=== PATIENT | female | born 1950 | race Caucasian/White ===

== ENCOUNTER 2024-07-29 07:54 | Outpatient (CLI) | payer MEDICARE, OTHER, SELFPAY ==
--- NOTE | ~2024-07-29 | MM_ITS ---
EXAMINATION: MM screening leon BI w royal HISTORY: Screening mammogram TECHNIQUE: Craniocaudal and mediolateral oblique 3-D tomosynthesis images were obtained and synthetic 2-D images were generated. CAD analysis was submitted and interpreted. COMPARISON: No prior mammogram is available for comparison at this institution. BREAST PARENCHYMAL COMPOSITION:Dense: The breasts are heterogeneously dense, which may obscure small masses. FINDINGS: Asymmetry noted in the upper right subareolar region. No definite parenchymal abnormality l eft breast. Bilateral benign calcifications are present. IMPRESSION: Subareolar right breast asymmetry. Spot compression and true lateral views, and possibly ultrasound, recommended for further evaluation. BI-RADS Category 0: Incomplete: Needs additional imaging evaluation. Reviewed, dictated and finalized at location .
--- OUTSIDE RECORDS SUMMARY | 2024-07-29 08:12 | XMS_ITS | CONTINUITY OF CARE DOCUMENT ---
Author Name monroe childress Address Unknown Organization [facility] Address [address] [address] [place] [address] Phone [phone] Care Team Providers Care Clergy Member Name Role Phone Jerome ELKINS, Karen Unavailable ELY ERICKSON MD Unavailable ELY ERICKSON MD Unavailable PROBLEMS Condition Status Date Provider Notes Chest pain active Massiel Morel INSURANCE PROVIDERS Payer name Policy type / Coverage type [place] libertarian ID NEETA SANTACRUZ [id number] [place] [id number] HISTORY OF PROCEDURES Procedure Date Procedure Name Provider Procedure Notes S tatus Cardiolite, 2 units Karen Cano MD completed SPECT Images Trisha Stanford MD com pleted Stress EKG Long Ventura MD completed
--- OUTSIDE RECORDS SUMMARY | 2024-07-29 08:12 | XMS_ITS | Referral Summary ---
Author Organization [facility] Virtual Care Address [facility] [place] [address] Phone Care Team Providers Care Rubbish Collector Name Role Phone Sidney Westfall MD Primary Care Provider Encounters Date Type Department Care Team Description 07/20/2024 Telephone [facility] [address] [phone] Sidney Westfall MD home health orders 07/13/2024 7:39 AM OFFICE COORDINATOR - 07/13/2024 11:59 PM OFFICE COORDINATOR Hospital Encounter [facility] Medical [facility] [address] [place] [phone] Discharge Disposition: Discharge to home or self care 07/13/2024 10:15 AM OFFICE COORDINATOR Office Visit [facility]opedics and Sports Medicine [address] [place] [phone] Demarco Rainey NP Right knee pain, unspecified chronicity (Primary Dx); Closed nondisplaced longitudinal fracture of right patella, initial encounter 07/12/2024 Telephone [facility] [phone] Sidney Westfall MD Scheduling Testing/Treatment 06/14/2024 11:17 AM OFFICE COORDINATOR - 06/17/2024 4:37 PM OFFICE COORDINATOR Hospital Encounter [facility] [address] [place] [phone] Arash Zazueta Jr., MD Okonkwo, Kasiemobi Bernice, MD Singh, Supriya, MD Closed sleeve fracture of right patella, initial encounter (Primary Dx) Discharge Disposition: Discharge to [facility] 05/13/2024 12:55 PM OFFICE COORDINATOR Lab [facility] ([facility]) [address] [place] [phone] Type 2 diabetes mellitus without complication, without long-term current use of insulin (HCC); Mixed hyperlipidemia; Essential hypertension; Parkinson'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, with fluctuating manifestations (HCC); Anemia, unspecified type 05/13/2024 Telephone [facility] Scheduling [facility] [place] [address] Felipe Rivas MD Scheduling Appointments 05/13/2024 11:00 AM OFFICE COORDINATOR Office Visit [facility] [address] [facility] [address] [place] [phone] Sidney Westfall MD Type 2 diabetes mellitus without complication, without long-term current use of insulin (HCC) (Primary Dx); Mixed hyperlipidemia; Essential hypertension; Parkinson'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, with fluctuating manifestations (HCC); Anemia, unspecified type from Last 3 Months Allergies No known active allergies Medications albuterol HFA (Proventil HFA) 90 mcg/actuation inhaler Inhale 2 puffs every 4 (four) hours as needed for wheezing or shortness of breath 3 each 1 3 Active pen needle, diabetic, safety 31 gauge x 08/01 needleIndications: Type 2 diabetes mellitus without complication, unspecified whether [facility] insulin use (HCC) 45 Units daily inject 45 units daily 100 each 1 4 Active levothyroxine (SYNTHROID) 50 mcg tablet Take 1 tablet (50 mcg total) by mouth daily 90 tablet 1 4 Active ALPRAZolam (XANAX) 0.5 mg tablet Take 1 tablet (0.5 mg total) by mouth 2 (two) times a day as needed for anxiety for anxiety 60 tablet 2 4 Active gemfibroziL (LOPID) 600 mg tabletIndications: Hyperlipidemia, unspecified hyperlipidemia type Take 1 tablet (600 mg total) by mouth 2 (two) times a day 180 tablet 1 4 Active traZODone (DESYREL) 50 mg tablet Take 1 tablet (50 mg total) by mouth nightly as needed for sleep for sleep 90 tablet 1 4 Active carbidopa-levodopa (SINEMET) 25-100 mg per tablet Take 1 tablet by mouth 3 (three) times a day 270 tablet 1 4 08/19/19 25 Active Contour Next Test Strips strip Test glucose bid 200 strip 1 4 Active lisinopriL (PRINIVIL,ZESTRIL) 20 mg tabletIndications: Essential hypertension Take 1 tablet (20 mg total) by mouth daily 90 tablet 1 4 Active metFORMIN (GLUCOPHAGE) 1,000 mg tabletIndications: Type 2 diabetes mellitus without complication, without long-term current use of insulin (HCC) TAKE ONE TABLET BY MOUTH TWICE A DAY WITH A MEAL 180 tablet 3 4 Active therapeutic multivitamin (THERA) tablet Take 1 tablet by mouth daily Active Active Problems Problem Noted Date Diagnosed Date Closed sleeve fracture of right patella, initial encounter 06/14/2024 Parkinson'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, with fluctuating manifestations 11/06/2023 Anemia 11/04/2022 Vasovagal syncope 04/25/2022 Hypothyroidism 04/10/2021 Assessment & Plan (02/18/2024 1:11 PM CDT): Recent labs normal Tremor 01/08/2021 Type 2 diabetes mellitus wit hout complication, without long-term current use of insulin 07/10/2020 Assessment & Plan (02/18/2024 1:11 PM CDT): On metformin only. A1c 5.5% continue present Rx Assessment & Plan (07/10/2020 10:39 AM OFFICE COORDINATOR): A1c at target. Will continue present Rx. Check BMP and microalbumin Hyperlipidemia 07/10/2020 Assessment & Plan (02/18/2024 1:11 PM CDT): Doing well at this time Assessment & Plan (07/10/2020 10:39 AM OFFICE COORDINATOR): Lipid elevated. Consider ezetemibe in the future. Essential hypertension 07/10/2020 Assessment & Plan (02/18/2024 1:11 PM CDT): BP at target Assessment & Plan (07/10/2020 10:39 AM OFFICE COORDINATOR): Blood pressure at target doing well Anxiety 07/10/2020 Assessment & Plan (07/10/2020 10:39 AM OFFICE COORDINATOR): Will increase alprazolam 2.5 b.i.d. Orthostatic hypotension Immunizations Immunization Administration Dates Next Due COVID-19 mRNA ([employer]) 0.3 m L (30 mcg) vaccine (12 years and up) 03/08/2024 Influenza, Quad, Adjuvantate d, Intramuscular 01/03/2023 Influenza, Quadrivalent, Hig h Dose, Preservative Free, Intrr 04/01/2022,03/05/2021,03/21/2020 Influenza, Quadrivalent, Spl it, Preservative Free, Intramuscular 04/19/2015 Influenza, Trivalent, High D ose, Split, Preservative Free, Intramuscular 03/08/2024,03/01/2018,04/28/2017 Influenza, Trivalent, IM (MDV) 04/07/2014 Influenza, Trivalent, Preser vative Free, Intramuscular 04/01/2013 Moderna SARS-CoV-2 Monovalen t Vaccination (12+ YRS) 04/09/2021 Pneumococcal Conjugate PCV 13 03/01/2018 Pneumococcal Conjugate Pcv20 09/18/2022 Pneumococcal Polysaccharide PPV23 02/08/2023 RSV Vaccine, Pref, Recombina nt, Subunit, Adjuvanted, PF, IM (Arexvy) 03/05/2023 ZOSTER Recombinant 01/03/2023,09/18/2022 Social History Tobacco Use Types Packs/Day Years Used Date Smoking Tobacco: Former Cigarettes Q uit: 1998 Tobacco Cessation:Counseling Given: Not Answered AUDIT-C Answer Date Recorded Q1: How often do you have a drink containing alcohol? Never 07/13/2024 Q2: How many drinks containi ng alcohol do you have on a typical day when you are drinking? Patient does not drink Q3: How often do you have si x or more drinks on one occasion? Never 07/13/2024 PHQ-2 Answer Date Recorded PHQ-2 Total Score (If total score is 3 or more points, staff should administer the PHQ-9) 0 06/14/2024 Personal Safety Answer Date Recorded Have you ever been in or are you currently in a harmful physical or emotional relationship or is someone making you feel afraid or unsafe? Denies 06/14/2024 Comments Unknown Sex and Gender Information Value Date Recorded Sex Assigned at Not on file Legal Sex Female 12:14 AM OFFICE COORDINATOR Gender Identity Female 11/17/2023 1:33 PM CDT Sexual Orientation Straight 11/17/2023 1: 33 PM CDT Last Filed Vital Signs Vital Sign Reading Time Taken Comments Blood Pressure 119/63 07/13/2024 10:38 AM OFFICE COORDINATOR Pulse 99 07/13/2024 10:38 AM OFFICE COORDINATOR Temperature 36.3 C (97.3 F) 06/17/2024 2:55 PM OFFICE COORDINATOR Respiratory Rate 18 06/17/2024 2:55 PM OFFICE COORDINATOR Oxygen Saturation 94% 06/17/2024 2:55 PM OFFICE COORDINATOR Inhaled Oxygen Concentration - - Weight 66.2 kg (146 lb) 07/13/2024 10:38 AM OFFICE COORDINATOR Height 170.2 cm (5' 7 ) 07/13/2024 10:38 AM OFFICE COORDINATOR Body Mass Index 22.87 07/13/2024 10:38 AM OFFICE COORDINATOR Plan of Treatment Not on file Procedures Procedure Name Priority Date/Time Associated Diagnosis Comments XR KNEE RIGHT 3 VIEWS Schedule Routine, Read Routine (OP Routine) 07/13/2024 10:34 AM OFFICE COORDINATOR Right knee pain, unspecified chronicity POCT GLUCOSE DEVICE Routine 06/17/2024 4 :01 PM OFFICE COORDINATOR POCT GLUCOSE DEVICE Routine 06/17/2024 11:33 AM OFFICE COORDINATOR POCT GLUCOSE DEVICE Routine 06/17/2024 7 :32 AM OFFICE COORDINATOR DIFFERENTIAL AUTO Routine 06/17/2024 4:2 2 AM OFFICE COORDINATOR CBC WITH AUTO DIFFERENTIAL Routine 06/17/2024 4:22 AM OFFICE COORDINATOR POCT GLUCOSE DEVICE Routine 06/17/2024 2 :05 AM OFFICE COORDINATOR POCT GLUCOSE DEVICE Routine 06/16/2024 8 :43 PM OFFICE COORDINATOR POCT GLUCOSE DEVICE Routine 06/16/2024 4 :13 PM OFFICE COORDINATOR POCT GLUCOSE DEVICE Routine 06/16/2024 11:08 AM OFFICE COORDINATOR EGFR Timed 06/16/2024 7:59 AM OFFICE COORDINATOR DIFFERENTIAL AUTO Routine 06/16/2024 7:5 9 AM OFFICE COORDINATOR CBC WITH AUTO DIFFERENTIAL Routine 06/16/2024 7:59 AM OFFICE COORDINATOR BASIC METABOLIC PANEL Timed 06/16/2024 7:59 AM OFFICE COORDINATOR POCT GLUCOSE DEVICE Routine 06/16/2024 7 :10 AM OFFICE COORDINATOR POCT GLUCOSE DEVICE Routine 06/16/2024 2 :34 AM OFFICE COORDINATOR POCT GLUCOSE DEVICE Routine 06/15/2024 7 :56 PM OFFICE COORDINATOR POCT GLUCOSE DEVICE Routine 06/15/2024 4 :36 PM OFFICE COORDINATOR POCT GLUCOSE DEVICE Routine 06/15/2024 11:10 AM OFFICE COORDINATOR POCT GLUCOSE DEVICE Routine 06/15/2024 7 :34 AM OFFICE COORDINATOR POCT GLUCOSE DEVICE Routine 06/15/2024 2 :05 AM OFFICE COORDINATOR POCT GLUCOSE DEVICE Routine 06/14/2024 9 :01 PM OFFICE COORDINATOR POCT GLUCOSE DEVICE Routine 06/14/2024 4 :25 PM OFFICE COORDINATOR EGFR STAT 06/14/2024 12:14 PM OFFICE COORDINATOR DIFFERENTIAL AUTO STAT 06/14/2024 12:14 PM OFFICE COORDINATOR COMPREHENSIVE METABOLIC PANEL STAT 06/14/2024 12:14 PM OFFICE COORDINATOR CBC WITH AUTO DIFFERENTIAL STAT 06/14/2024 12:14 PM OFFICE COORDINATOR XR KNEE RIGHT 4 OR MORE VIEWS ED 06/14/2024 11:21 AM OFFICE COORDINATOR EGFR Routine 05/13/2024 11:59 AM OFFICE COORDINATOR Type 2 diabetes mellitus without complication, without long-term current use of insulin (HCC) Mixed hyperlipidemia Essential hypertension Parkinson'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, with fluctuating manifestations (HCC) Anemia, unspecified type DIFFERENTIAL AUTO Routine 05/13/2024 11:59 AM OFFICE COORDINATOR Type 2 diabetes mellitus without complication, without long-term current use of insulin (HCC) Mixed hyperlipidemia Essential hypertension Parkinson'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, with fluctuating manifestations (HCC) Anemia, unspecified type COMPREHENSIVE METABOLIC PANEL Routine 05/13/2024 11:59 AM OFFICE COORDINATOR Type 2 diabetes mellitus without complication, without long-term current use of insulin (HCC) Mixed hyperlipidemia Essential hypertension Parkinson'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, with fluctuating manifestations (HCC) Anemia, unspecified type TSH Routine 05/13/2024 11:59 AM OFFICE COORDINATOR Type 2 diabetes mellitus without complication, without long-term current use of insulin (HCC) Mixed hyperlipidemia Essential hypertension Parkinson'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, with fluctuating manifestations (HCC) Anemia, unspecified type ALBUMIN CREATININE RATIO, URINE Routine 05/13/2024 11:59 AM OFFICE COORDINATOR Type 2 diabetes mellitus without complication, without long-term current use of insulin (HCC) Mixed hyperlipidemia Essential hypertension Parkinson'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, with fluctuating manifestations (HCC) Anemia, unspecified type CBC WITH AUTO DIFFERENTIAL Routine 05/13/2024 11:59 AM OFFICE COORDINATOR Type 2 diabetes mellitus without complication, without long-term current use of insulin (HCC) Mixed hyperlipidemia Essential hypertension Parkinson'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, with fluctuating manifestations (HCC) Anemia, unspecified type POCT HEMOGLOBIN A1C Routine 02/18/2024 12:34 PM CDT Type 2 diabetes mellitus without complication, without long-term current use of insulin (HCC) HEPATITIS C ANTIBODY Routine 11/06/2023 10:16 AM CDT Type 2 diabetes mellitus without complication, unspecified whether intermodal owner operator truck driver insulin use (HCC) Mixed hyperlipidemia Parkinson'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, with fluctuating manifestations (HCC) Anemia, unspecified type Hypothyroidism, unspecified type Essential hypertension Encounter for hepatitis C screening test for low risk patient POCT LIPID PANEL Routine 11/06/2023 9:47 AM CDT Mixed hyperlipidemia COLONOSCOPY Routine 06/09/2019 from Last 3 Months or Most Recently Relevant to Health Maintenance Results * XR Knee Right 3 View (07/13/2024 10:34 AM OFFICE COORDINATOR) Anatomical Region Laterality Modality Lower Extremities, Knee Right Digital Radiography Narrative 07/13/2024 11:40 AM OFFICE COORDINATOR 4 view of the knee show mild tricompartmental osteoarthritis. No dislocations noted. Minimally displaced lateral facet fracture is again viewed, no worsening displacement. Interval callus noted us Demarco Rainey TRACTOR TRAILER TECHNICIAN IMG XR PROCEDURES Final Result * POCT glucose (06/17/2024 4:01 PM OFFICE COORDINATOR) Glucose, POC 113 70 - 199 mg/dL Blood 06/17/2024 4:01 PM OFFICE COORDINATOR 06/17/2024 4:01 PM OFFICE COORDINATOR us Dillon Romano MD LAB POCT ORDERABLES - DEVICE Final Result [facility] ([place]) 1 [facility] [place] [address] * POCT glucose (06/17/2024 11:33 AM OFFICE COORDINATOR) Glucose, POC 177 70 - 199 mg/dL Blood 06/17/2024 11:3 3 AM OFFICE COORDINATOR 06/17/2024 11:33 AM OFFICE COORDINATOR Dillon Romano MD LAB POCT ORDERABLES - DEVICE Final Result SHAKE[facility] MERRITT ([place]) 1 [place] [address] * POCT glucose (06/17/2024 7:32 AM OFFICE COORDINATOR) Glucose, POC 177 70 - 199 mg/dL Blood 06/17/2024 7:32 AM OFFICE COORDINATOR 06/17/2024 7:32 AM OFFICE COORDINATOR Dillon Romano MD LAB POCT ORDERABLES - DEVICE Final Result Performing Organization Address City/[facility] Co de Phone Number SHAKE[facility] MERRITT ([place]) 1 [facility] [place] [address] * Differential, auto (06/17/2024 4:22 AM OFFICE COORDINATOR) Neutrophil abs 3.0 1.5 - 6.5 K/cumm Imm gran abs 0.0 0.0 - 0.1 K/cumm [facility] ([place]) Lymphocyte abs 1.5 0.8 - 3.3 K/cumm [facility] ([place]) Monocyte abs 0.6 0.2 - 0.8 K/cumm [facility] ([place]) Eosinophil abs 0.1 0.0 - 0.5 K/cumm [facility] ([place]) Basophil abs 0.0 0.0 - 0.1 K/cumm [facility] ([place]) Neutrophil pct 57.3 % [facility] ([place]) Comment: Interpretive Data Percent cell count reference ranges are not reported, since discordance with absolute values may lead to misinterpretation of CBC data. Current Interpretive Data was last revised on 2017. Imm gran pct 0.2 % [facility] ([place]) Comment: Interpretive Data Percent cell count reference ranges are not reported, since discordance with absolute values may lead to misinterpretation of CBC data. Current Interpretive Data was last revised on 2017. Lymphocyte pct 28.8 % [facility] ([place]) Comment: Interpretive Data Percent cell count reference ranges are not reported, since discordance with absolute values may lead to misinterpretation of CBC data. Current Interpretive Data was last revised on 2017. Monocyte pct 10.6 % [facility] ([place]) Comment: Interpretive Data Percent cell count reference ranges are not reported, since discordance with absolute values may lead to misinterpretation of CBC data. Current Interpretive Data was last revised on 2017. Eosinophil pct 2.5 % [facility] ([place]) Comment: Interpretive Data Percent cell count reference ranges are not reported, since discordance with absolute values may lead to misinterpretation of CBC data. Current Interpretive Data was last revised on 2017. Basophil pct 0.6 % [facility] ([place]) Comment: Interpretive Data Percent cell count reference ranges are not reported, since discordance with absolute values may lead to misinterpretation of CBC data. Current Interpretive Data was last revised on 2017. Blood 06/17/2024 4:22 AM OFFICE COORDINATOR 06/17/2024 4:38 AM OFFICE COORDINATOR us rAash Zazueta Jr., MD LAB BLOOD ORDERABLE S Final Result [facility]ERRITT ([place]) 1 [facility] Department [place] [address] * (ABNORMAL) CBC with auto differential (06/17/2024 4:22 AM OFFICE COORDINATOR) WBC 5.3 3.8 - 9.9 K/cumm Hgb 9.8(L) 11.9 - 15.5 g/dL [facility] ([place]) Hct 30.2(L) 35.6 - 45.5 % [facility] ([place]) Plt 271 150 - 400 K/cumm [facility] ([place]) MPV 9.0(L) 9.1 - 12.3 fL [facility] ([place]) RBC 3.42(L) 3.90 - 5.20 M/cumm [facility] ([place]) MCV 88.3 81.3 - 96.4 fL [facility] ([place]) MCH 28.7 27.1 - 33.3 pg [facility] ([place]) MCHC 32.5 32.3 - 35.7 g/dL [facility] ([place]) RDW CV 13.3 11.1 - 14.9 % [facility] ([place]) RDW SD 43.1 35.7 - 48.1 fL [facility] ([place]) NRBC abs 0.00 0.00 - 0.01 K/cumm [facility] ([place]) Blood 06/17/2024 4:22 AM OFFICE COORDINATOR 06/17/2024 4:38 AM OFFICE COORDINATOR us Arash Zazueta Jr., MD LAB BLOOD ORDERABLE S Final Result SHA[facility] MERRITT ([place]) 1 [facility] [employer] [place] [employer] [place] [address] * POCT glucose (06/17/2024 2:05 AM OFFICE COORDINATOR) Glucose, POC 179 70 - 199 mg/dL Blood 06/17/2024 2:05 AM OFFICE COORDINATOR 06/17/2024 2:05 AM OFFICE COORDINATOR us Dillon Romano MD LAB POCT ORDERABLES - DEVICE Final Result SHAKE[facility] MERRITT ([place]) 1 [facility] [employer] [place] [employer] [place] [address] * POCT glucose (06/16/2024 8:43 PM OFFICE COORDINATOR) Glucose, POC 191 70 - 199 mg/dL Blood 06/16/2024 8:43 PM OFFICE COORDINATOR 06/16/2024 8:43 PM OFFICE COORDINATOR us Dillon Romano MD LAB POCT ORDERABLES - DEVICE Final Result Performing Organization Address [facility] Co de Phone Number SHAKEEL MERRITT ([place]) 1 [facility] [place] [address] * POCT glucose (06/16/2024 4:13 PM OFFICE COORDINATOR) Glucose, POC 154 70 - 199 mg/dL Blood 06/16/2024 4:13 PM OFFICE COORDINATOR 06/16/2024 4:13 PM OFFICE COORDINATOR Dillon Romano MD LAB POCT ORDERABLES - DEVICE Final Result Performing Organization Address [facility] de Phone Number [facility] ([place]) 1 [facility] [place] [address] * POCT glucose (06/16/2024 11:08 AM OFFICE COORDINATOR) [facility] Signature Glucose, POC 194 70 - 199 mg/dL Blood 06/16/2024 11:0 8 AM OFFICE COORDINATOR 06/16/2024 11:08 AM OFFICE COORDINATOR Dillon Romano MD LAB POCT ORDERABLES - DEVICE Final Result Performing Organization Address [facility] de Phone Number [facility] ([place]) 1 [facility] [place] [address] * (ABNORMAL) eGFR (06/16/2024 7:59 AM OFFICE COORDINATOR) Pathologist [facility] eGFR 57(L) >=60 mL/min/1. 73 m2 Comment: Interpretive Data Reference Interval Normal >/= 90 mL/min/1.73m2 Mildly decreased* 60 - 89 mL/min/1.73m2 Mildly to moderately decreased 45 - 59 mL/min/1.73m2 Moderately to severely decreased 30 - 44 mL/min/1.73m2 Severely decreased 15 - 29 mL/min/1.73m2 Kidney Failure < 15 mL/min/1.73m2 *Relative to young adult level Estimated glomerular filtration rate is determined by the 2020 CKD-EPI equation recommended by the National Kidney Foundation (A Unifying Approach to GFR Estimation: Recommendations of the NKF-ASK Task Force on Reassessing the Inclusion of Race in Diagnosing Kidney Disease, JASN 2020). The CKD-EPI equation should not be used for patients with unstable renal function and has not been validated in children and those over 70. Current interpretive data was last reviewed 2021. Blood 06/16/2024 7:59 AM OFFICE COORDINATOR 06/16/2024 8:45 AM OFFICE COORDINATOR us Arash Zazueta Jr., MD LAB BLOOD ORDERABLE S Final Result [facility] ([place]) 1 [facility] Department [place] [address] * Differential, auto (06/16/2024 7:59 AM OFFICE COORDINATOR) Neutrophil abs 3.4 1.5 - 6.5 K/cumm Imm gran abs 0.0 0.0 - 0.1 K/cumm [facility] ([place]) Lymphocyte abs 1.3 0.8 - 3.3 K/cumm [facility] ([place]) Monocyte abs 0.5 0.2 - 0.8 K/cumm [facility] ([place]) Eosinophil abs 0.1 0.0 - 0.5 K/cumm [facility] ([place]) Basophil abs 0.0 0.0 - 0.1 K/cumm [facility] ([place]) Neutrophil pct 63.4 % [facility] ([place]) Comment: Interpretive Data Percent cell count reference ranges are not reported, since discordance with absolute values may lead to misinterpretation of CBC data. Current Interpretive Data was last revised on 2017. Imm gran pct 0.6 % [facility] ([place]) Comment: Interpretive Data Percent cell count reference ranges are not reported, since discordance with absolute values may lead to misinterpretation of CBC data. Current Interpretive Data was last revised on 2017. Lymphocyte pct 24.7 % [facility] ([place]) Comment: Interpretive Data Percent cell count reference ranges are not reported, since discordance with absolute values may lead to misinterpretation of CBC data. Current Interpretive Data was last revised on 2017. Monocyte pct 9.0 % [facility] ([place]) Comment: Interpretive Data Percent cell count reference ranges are not reported, since discordance with absolute values may lead to misinterpretation of CBC data. Current Interpretive Data was last revised on 2017. Eosinophil pct 1.9 % [facility] ([place]) Comment: Interpretive Data Percent cell count reference ranges are not reported, since discordance with absolute values may lead to misinterpretation of CBC data. Current Interpretive Data was last revised on 2017. Basophil pct 0.4 % [facility] ([place]) Comment: Interpretive Data Percent cell count reference ranges are not reported, since discordance with absolute values may lead to misinterpretation of CBC data. Current Interpretive Data was last revised on 2017. Blood 06/16/2024 7:59 AM OFFICE COORDINATOR 06/16/2024 8:45 AM OFFICE COORDINATOR us Arash Zazueta Jr., MD LAB BLOOD ORDERABLE S Final Result [facility] ([place]) 1 [facility] Department [place] [address] * (ABNORMAL) CBC with auto differential (06/16/2024 7:59 AM OFFICE COORDINATOR) WBC 5.3 3.8 - 9.9 K/cumm Hgb 10.4(L) 11.9 - 15.5 g/dL [facility] ([place]) Hct 32.4(L) 35.6 - 45.5 % [facility] ([place]) Plt 285 150 - 400 K/cumm [facility] ([place]) MPV 9.1 9.1 - 12.3 fL [facility] ([place]) RBC 3.65(L) 3.90 - 5.20 M/cumm [facility] ([place]) MCV 88.8 81.3 - 96.4 fL [facility] ([place]) MCH 28.5 27.1 - 33.3 pg [facility] MCHC 32.1(L) 32.3 - 35.7 g/dL [facility] RDW CV 13.2 11.1 - 14.9 % [facility] ([place]) RDW SD 43.4 35.7 - 48.1 fL [facility] ([place]) NRBC abs 0.00 0.00 - 0.01 K/cumm [facility] ([place]) Blood 06/16/2024 7:59 AM OFFICE COORDINATOR 06/16/2024 8:45 AM OFFICE COORDINATOR us Arash Zazueta Jr., MD LAB BLOOD ORDERABLE S Final Result [facility] ([place]) 1 [facility] Department [place] [address] * (ABNORMAL) Basic metabolic panel (06/16/2024 7:59 AM OFFICE COORDINATOR) Sodium 137 135 - 145 mmol/L Potassium, pl 4.4 3.3 - 4.9 mmol/L [facility] ([place]) Chloride 102 97 - 110 mmol/L [facility] CO2 22 22 - 32 mmol/L [facility] ([place]) Anion gap 14 2 - 15 mmol/L [facility] ([place]) BUN 22 6 - 25 mg/dL [facility] ([place]) Creatinine 1.03 0.60 - 1.10 mg/dL [facility] Glucose 201(H) 70 - 199 mg/dL [facility] [facility] Comment: Interpretive Data Fasting glucose >/= 126 mg/dl is diagnostic for diabetes. Fasting is defined as no caloric intake for at least 8 hours. Fasting glucose between 100 mg/dl to 125 mg/dl is diagnostic of prediabetes. In a patient with classic symptoms of hyperglycemia or hyperglycemic crisis, a random glucose >/= 200 mg/dl is diagnostic for diabetes. In the absence of unequivocal hyperglycemia, results should be confirmed by repeat testing. The classification and Diagnosis of Diabetes Diabetes Care 2021; 46: S19-S40. Current interpretive data was last revised 2022. Calcium 9.9 8.5 - 10.3 mg/dL SHA[facility] MERRITT ([place]) Blood 06/16/2024 7:59 AM OFFICE COORDINATOR 06/16/2024 8:45 AM OFFICE COORDINATOR us Arash Zazueta Jr., MD LAB BLOOD ORDERABLE S Final Result SHAKEEL MERRITT ([place]) 1 [facility] [place] [address] * (ABNORMAL) POCT glucose (06/16/2024 7:10 AM OFFICE COORDINATOR) Glucose, POC 210(H) 70 - 199 mg/dL Comment:Glu2: RN/ Notified Blood 06/16/2024 7:10 AM OFFICE COORDINATOR 06/16/2024 7:10 AM OFFICE COORDINATOR us Dillon Romano MD LAB POCT ORDERABLES - DEVICE Final Result Performing Organization Address City/[facility] Co de Phone Number SHAKEEL MERRITT ([place]) 1 [facility] [place] [address] * POCT glucose (06/16/2024 2:34 AM OFFICE COORDINATOR) Glucose, POC 177 70 - 199 mg/dL Blood 06/16/2024 2:34 AM OFFICE COORDINATOR 06/16/2024 2:34 AM OFFICE COORDINATOR Dillon Romano MD LAB POCT ORDERABLES - DEVICE Final Result Performing Organization Address City/[facility] Co de Phone Number SHAKEEL MERRITT ([place]) 1 [facility] [place] [address] * POCT glucose (06/15/2024 7:56 PM OFFICE COORDINATOR) Glucose, POC 184 70 - 199 mg/dL Blood 06/15/2024 7:56 PM OFFICE COORDINATOR 06/15/2024 7:56 PM OFFICE COORDINATOR Dillon Romano MD LAB POCT ORDERABLES - DEVICE Final Result Performing Organization Address [facility] Co de Phone Number SHAKEEL MERRITT ([place]) 1 [facility] [place] [address] * POCT glucose (06/15/2024 4:36 PM OFFICE COORDINATOR) Glucose, POC 193 70 - 199 mg/dL Blood 06/15/2024 4:36 PM OFFICE COORDINATOR 06/15/2024 4:36 PM OFFICE COORDINATOR Dillon Romano MD LAB POCT ORDERABLES - DEVICE Final Result Performing Organization Address [facility] de Phone Number SHAKEEL MERRITT ([place]) 1 [facility] [place] [address] * (ABNORMAL) POCT glucose (06/15/2024 11:10 AM OFFICE COORDINATOR) Glucose, POC 245(H) 70 - 199 mg/dL Comment:Glu2: RN/MD Notified Blood 06/15/2024 11:1 0 AM OFFICE COORDINATOR 06/15/2024 11:10 AM OFFICE COORDINATOR Dillon Romano MD LAB POCT ORDERABLES - DEVICE Final Result Performing Organization Address City/[facility] de Phone Number SHAKEEL MERRITT ([place]) 1 [facility] [place] [address] * POCT glucose (06/15/2024 7:34 AM OFFICE COORDINATOR) Glucose, POC 166 70 - 199 mg/dL Blood 06/15/2024 7:34 AM OFFICE COORDINATOR 06/15/2024 7:34 AM OFFICE COORDINATOR us Dillon Romano MD LAB POCT ORDERABLES - DEVICE Final Result SHAKEEL MERRITT ([place]) 1 [facility] [place] [address] * POCT glucose (06/15/2024 2:05 AM OFFICE COORDINATOR) Glucose, POC 185 70 - 199 mg/dL Blood 06/15/2024 2:05 AM OFFICE COORDINATOR 06/15/2024 2:05 AM OFFICE COORDINATOR us Arash Zazueta Jr., MD LAB POCT ORDERABLES - DEVICE Final Result Performing Organization Address City/[facility]/ZIP Co de Phone Number SHAKEEL MERRITT ([place]) 1 [facility] [place] [address] * POCT glucose (06/14/2024 9:01 PM OFFICE COORDINATOR) Glucose, POC 145 70 - 199 mg/dL Blood 06/14/2024 9:01 PM OFFICE COORDINATOR 06/14/2024 9:01 PM OFFICE COORDINATOR us Arash Zazueta Jr., MD LAB POCT ORDERABLES - DEVICE Final Result Performing Organization Address City/[facility]/ZIP Co de Phone Number SHAKEEL MERRITT ([place]) 1 [facility] [place] [address] * POCT glucose (06/14/2024 4:25 PM OFFICE COORDINATOR) Glucose, POC 198 70 - 199 mg/dL Blood 06/14/2024 4:25 PM OFFICE COORDINATOR 06/14/2024 4:25 PM OFFICE COORDINATOR us Arash Zazueta Jr., MD LAB POCT ORDERABLES - DEVICE Final Result SHAKEEL MERRITT ([place]) 1 [facility] [place] [address] * eGFR (06/14/2024 12:14 PM OFFICE COORDINATOR) eGFR 61 >=60 mL/min/1. 73 m2 Comment: Interpretive Data Reference Interval Normal >/= 90 mL/min/1.73m2 Mildly decreased* 60 - 89 mL/min/1.73m2 Mildly to moderately decreased 45 - 59 mL/min/1.73m2 Moderately to severely decreased 30 - 44 mL/min/1.73m2 Severely decreased 15 - 29 mL/min/1.73m2 Kidney Failure < 15 mL/min/1.73m2 *Relative to young adult level Estimated glomerular filtration rate is determined by the 2020 CKD-EPI equation recommended by the National Kidney Foundation (A Unifying Approach to GFR Estimation: Recommendations of the NKF-ASK Task Force on Reassessing the Inclusion of Race in Diagnosing Kidney Disease, JASN 2020). The CKD-EPI equation should not be used for patients with unstable renal function and has not been validated in children and those over 70. Current interpretive data was last reviewed 2021. Blood 06/14/2024 12:1 4 PM OFFICE COORDINATOR 06/14/2024 12:16 PM OFFICE COORDINATOR us Digna [facility] LAB BLOOD ORDERABLES Final Resu lt SHAKEEL [facility] ([place]) 1 [facility] Department [place] [address] * Differential, auto (06/14/2024 12:14 PM OFFICE COORDINATOR) Neutrophil abs 6.3 1.5 - 6.5 K/cumm Imm gran abs 0.0 0.0 - 0.1 K/cumm [facility] ([place]) Lymphocyte abs 2.1 0.8 - 3.3 K/cumm [facility] ([place]) Monocyte abs 0.7 0.2 - 0.8 K/cumm [facility] ([place]) Eosinophil abs 0.1 0.0 - 0.5 K/cumm [facility] ([place]) Basophil abs 0.0 0.0 - 0.1 K/cumm [facility] ([place]) Neutrophil pct 67.5 % [facility] ([place]) Comment: Interpretive Data Percent cell count reference ranges are not reported, since discordance with absolute values may lead to misinterpretation of CBC data. Current Interpretive Data was last revised on 2017. Imm gran pct 0.3 % [facility] ([place]) Comment: Interpretive Data Percent cell count reference ranges are not reported, since discordance with absolute values may lead to misinterpretation of CBC data. Current Interpretive Data was last revised on 2017. Lymphocyte pct 22.8 % [facility] ([place]) Comment: Interpretive Data Percent cell count reference ranges are not reported, since discordance with absolute values may lead to misinterpretation of CBC data. Current Interpretive Data was last revised on 2017. Monocyte pct 7.8 % [facility] ([place]) Comment: Interpretive Data Percent cell count reference ranges are not reported, since discordance with absolute values may lead to misinterpretation of CBC data. Current Interpretive Data was last revised on 2017. Eosinophil pct 1.2 % [facility] ([place]) Comment: Interpretive Data Percent cell count reference ranges are not reported, since discordance with absolute values may lead to misinterpretation of CBC data. Current Interpretive Data was last revised on 2017. Basophil pct 0.4 % [facility] ([place]) Comment: Interpretive Data Percent cell count reference ranges are not reported, since discordance with absolute values may lead to misinterpretation of CBC data. Current Interpretive Data was last revised on 2017. Blood 06/14/2024 12:1 4 PM OFFICE COORDINATOR 06/14/2024 12:16 PM OFFICE COORDINATOR us Digna [facility] LAB BLOOD ORDERABLES Final Resu lt SHAKEEL MERRITT ([place]) 1 [facility] Department of Laboratories [place], [place] [id number] * (ABNORMAL) CBC with auto differential (06/14/2024 12:14 PM OFFICE COORDINATOR) WBC 9.3 3.8 - 9.9 K/cumm Hgb 10.4(L) 11.9 - 15.5 g/dL [facility] ([place]) Hct 32.5(L) 35.6 - 45.5 % [facility] ([place]) Plt 325 150 - 400 K/cumm [facility] ([place]) MPV 8.8(L) 9.1 - 12.3 fL [facility] ([place]) RBC 3.69(L) 3.90 - 5.20 M/cumm [facility] ([place]) MCV 88.1 81.3 - 96.4 fL [facility] ([place]) MCH 28.2 27.1 - 33.3 pg [facility] ([place]) MCHC 32.0(L) 32.3 - 35.7 g/dL [facility] ([place]) RDW CV 13.2 11.1 - 14.9 % [facility] ([place]) RDW SD 42.7 35.7 - 48.1 fL [facility] ([place]) NRBC abs 0.00 0.00 - 0.01 K/cumm [facility] ([place]) Blood 06/14/2024 12:1 4 PM OFFICE COORDINATOR 06/14/2024 12:16 PM OFFICE COORDINATOR us Digna MC LAB BLOOD ORDERABLES Final Resu lt [facility] ([place]) 1 [facility] Department [place] [address] * (ABNORMAL) Comprehensive metabolic panel (06/14/2024 12:14 PM OFFICE COORDINATOR) Sodium 135 135 - 145 mmol/L Potassium, pl 4.5 3.3 - 4.9 mmol/L [facility]) Chloride 100 97 - 110 mmol/L [facility] ([place]) CO2 20(L) 22 - 32 mmol/L [facility] ([place]) Anion gap 15 2 - 15 mmol/L [facility] ([place]) BUN 24 6 - 25 mg/dL [facility] ([place]) Creatinine 0.98 0.60 - 1.10 mg/dL [facility] ([place]) Glucose 211(H) 70 - 199 mg/dL [facility] ([place]) Comment: Interpretive Data Fasting glucose >/= 126 mg/dl is diagnostic for diabetes. Fasting is defined as no caloric intake for at least 8 hours. Fasting glucose between 100 mg/dl to 125 mg/dl is diagnostic of prediabetes. In a patient with classic symptoms of hyperglycemia or hyperglycemic crisis, a random glucose >/= 200 mg/dl is diagnostic for diabetes. In the absence of unequivocal hyperglycemia, results should be confirmed by repeat testing. The classification and Diagnosis of Diabetes Diabetes Care 202; 46: S19-S40. Current interpretive data was last revised 2022. Calcium 10.1 8.5 - 10.3 mg/dL [facility]) Bilirubin, total 0.3 0.1 - 1.2 mg/dL [facility] ([place]) Protein, pl 7.9 6.5 - 8.5 g/dL [facility] ([place]) Albumin 4.4 3.5 - 5.0 g/dL [facility] ([place]) Alk phos 127 40 - 130 Units/L [facility] ([place]) ALT <5(L) 7 - 45 Units/L [facility] ([place]) AST 18 10 - 45 Units/L [facility] ([place]) Blood 06/14/2024 12:1 4 PM OFFICE COORDINATOR 06/14/2024 12:16 PM OFFICE COORDINATOR us Digna MC LAB BLOOD ORDERABLES Final Resu lt [facility] ([place]) 1 [facility] Department [place] [address] * XR Knee Right 4+ Vw (Routine) (06/14/2024 11:21 AM OFFICE COORDINATOR) Anatomical Region Laterality Modality Lower Extremities, Knee Right Computed Radiography 06/14/2024 11:2 9 AM OFFICE COORDINATOR Narrative 06/14/2024 11:32 AM OFFICE COORDINATOR EXAM DESCRIPTION: XR KNEE RIGHT 4 OR MORE VIEWS REASON FOR STUDY: accidental fall Pt to triage for R knee pain. Pt states she fell yesterday and landed on her R knee and is now unable to bear weight. Pt denies hitting head or LOC TECHNIQUE: Four radiographic view(s) of the right knee . COMPARISON: 04/25/2022 FINDINGS: There is a mildly displaced fracture involving the lateral aspect of the patella. Large knee joint effusion and anterior soft tissue swelling. There is mild tricompartmental osteoarthritis. Chondrocalcinosis is noted. Vascular calcifications are present. IMPRESSION: 1. Mildly displaced fracture involving the lateral aspect of the right patella. 2. Large knee joint effusion and anterior soft tissue swelling. THIS IS AN ELECTRONICALLY VERIFIED FINAL REPORT 06/14/2024 11:32 AM - Electronically signed by Sidney Cornell M.D. KR: MARIAMA Report ID: [id number] Reading Location: [id number] Procedure Note Sidney Cornell MD - 06/14/2024 EXAM DESCRIPTION: XR KNEE RIGHT 4 OR MORE VIEWS REASON FOR STUDY: accidental fall Pt to triage for R knee pain. Pt states she fell yesterday and landed onher R knee and is now unable to bear weight. Pt denies hitting head or LOC TECHNIQUE: Four radiographic view(s) of the right knee . COMPARISON: 04/25/2022 FINDINGS: There is a mildly displaced fracture involving the lateral aspect of the patella. Large knee joint effusion and anterior soft tissue swelling.There is mild tricompartmental osteoarthritis. Chondrocalcinosis is noted. Vascular calcifications are present. IMPRESSION: 1. Mildly displaced fracture involving the lateral aspect of the right patella. 2. Large knee joint effusion and anterior soft tissue swelling. THIS IS AN ELECTRONICALLY VERIFIED FINAL REPORT 06/14/2024 11:32 AM - Electronically signed by Sidney Cornell M.D. KR: MARIAMA Report ID: [id number] Reading Location: [id number] Camron Davalos MD IMG XR PROCEDURES F inal Result * (ABNORMAL) eGFR (05/13/2024 11:59 AM OFFICE COORDINATOR) eGFR 55(L) >=60 mL/min/1. 73 m2 Comment: Interpretive Data Reference Interval Normal >/= 90 mL/min/1.73m2 Mildly decreased* 60 - 89 mL/min/1.73m2 Mildly to moderately decreased 45 - 59 mL/min/1.73m2 Moderately to severely decreased 30 - 44 mL/min/1.73m2 Severely decreased 15 - 29 mL/min/1.73m2 Kidney Failure < 15 mL/min/1.73m2 *Relative to young adult level Estimated glomerular filtration rate is determined by the 2020 CKD-EPI equation recommended by the National Kidney Foundation (A Unifying Approach to GFR Estimation: Recommendations of the NKF-ASK Task Force on Reassessing the Inclusion of Race in Diagnosing Kidney Disease, JASN 2020). The CKD-EPI equation should not be used for patients with unstable renal function and has not been validated in children and those over 70. Current interpretive data was last reviewed 2021. Blood 05/13/2024 11:5 9 AM OFFICE COORDINATOR 05/13/2024 12:56 PM OFFICE COORDINATOR us Sidney Westfall MD LAB BLOOD ORDERABLES Final Re sult [facility] Department [place] [address] * Differential, auto (05/13/2024 11:59 AM OFFICE COORDINATOR) Pathologist [facility] Neutrophil abs 5.2 1.5 - 6.5 K/cumm Imm gran abs 0.0 0.0 - 0.1 K/cumm [facility] Lymphocyte abs 1.8 0.8 - 3.3 K/cumm [facility] Monocyte abs 0.7 0.2 - 0.8 K/cumm [facility] Eosinophil abs 0.1 0.0 - 0.5 K/cumm [facility] Basophil abs 0.0 0.0 - 0.1 K/cumm [facility] Neutrophil pct 65.7 % [facility] Comment: Interpretive Data Percent cell count reference ranges are not reported, since discordance with absolute values may lead to misinterpretation of CBC data. Current Interpretive Data was last revised on 2017. Imm gran pct 0.4 % [facility] Comment: Interpretive Data Percent cell count reference ranges are not reported, since discordance with absolute values may lead to misinterpretation of CBC data. Current Interpretive Data was last revised on 2017. Lymphocyte pct 22.9 % [facility] Comment: Interpretive Data Percent cell count reference ranges are not reported, since discordance with absolute values may lead to misinterpretation of CBC data. Current Interpretive Data was last revised on 2017. Monocyte pct 9.0 % [facility] Comment: Interpretive Data Percent cell count reference ranges are not reported, since discordance with absolute values may lead to misinterpretation of CBC data. Current Interpretive Data was last revised on 2017. Eosinophil pct 1.6 % [facility] Comment: Interpretive Data Percent cell count reference ranges are not reported, since discordance with absolute values may lead to misinterpretation of CBC data. Current Interpretive Data was last revised on 2017. Basophil pct 0.4 % [facility] Comment: Interpretive Data Percent cell count reference ranges are not reported, since discordance with absolute values may lead to misinterpretation of CBC data. Current Interpretive Data was last revised on 2017. Blood 05/13/2024 11:5 9 AM OFFICE COORDINATOR 05/13/2024 12:56 PM OFFICE COORDINATOR us Sidney Westfall MD LAB BLOOD ORDERABLES Final Re sult [facility] Department [place] [address] * (ABNORMAL) CBC with auto differential (05/13/2024 11:59 AM OFFICE COORDINATOR) WBC 7.9 3.8 - 9.9 K/cumm Hgb 10.5(L) 11.9 - 15.5 g/dL [facility] Hct 32.2(L) 35.6 - 45.5 % [facility] Plt 342 150 - 400 K/cumm [facility] MPV 8.9(L) 9.1 - 12.3 fL [facility] RBC 3.67(L) 3.90 - 5.20 M/cumm [facility] MCV 87.7 81.3 - 96.4 fL [facility] MCH 28.6 27.1 - 33.3 pg [facility] MCHC 32.6 32.3 - 35.7 g/dL [facility] RDW CV 13.3 11.1 - 14.9 % [facility] RDW SD 43.0 35.7 - 48.1 fL [facility] NRBC abs 0.00 0.00 - 0.01 K/cumm [facility] Blood 05/13/2024 11:5 9 AM OFFICE COORDINATOR 05/13/2024 12:56 PM OFFICE COORDINATOR Sidney Westfall MD LAB BLOOD ORDERABLES Final Re sult Performing Organization Address [facility] de Phone Number [facility] [place] [employer] [place] [address] * Albumin Creatinine Ratio, Urine (05/13/2024 11:59 AM OFFICE COORDINATOR) Albumin Ur <12.0 mg/L Comment: Interpretive Data No reference range established. Current interpretive data was last revised 2018. Creatinine Ur 25.7 mg/dL [facility] Comment: Interpretive Data No reference range established. Current interpretive data was last revised 2018. Albumin Creatinine Ratio, Ur See Comment 1 - 29 mg/g [facility] Comment:Unable to calculate Urine 05/13/2024 11:5 9 AM OFFICE COORDINATOR 05/13/2024 12:51 PM OFFICE COORDINATOR us Sidney Westfall MD LAB URINE ORDERABLES Final Re sult Performing Organization Address [facility] Co de Phone Number [facility] [place] [address] * TSH (05/13/2024 11:59 AM OFFICE COORDINATOR) Thyroid Stimulating Hormone 3.01 0.30 - 4.20 mcIUnit/mL Blood 05/13/2024 11:5 9 AM OFFICE COORDINATOR 05/13/2024 12:56 PM OFFICE COORDINATOR us Sidney Westfall MD LAB BLOOD ORDERABLES Final Re sult [facility] Department [place] [address] * (ABNORMAL) Comprehensive metabolic panel (05/13/2024 11:59 AM OFFICE COORDINATOR) Sodium 137 135 - 145 mmol/L Potassium, pl 5.0(H) 3.3 - 4.9 mmol/L [facility] Chloride 102 97 - 110 mmol/L [facility] CO2 23 22 - 32 mmol/L [facility] Anion gap 12 2 - 15 mmol/L [facility] BUN 23 6 - 25 mg/dL [facility] Creatinine 1.06 0.60 - 1.10 mg/dL [facility] Glucose 136 70 - 199 mg/dL [facility] Comment: Interpretive Data Fasting glucose >/= 126 mg/dl is diagnostic for diabetes. Fasting is defined as no caloric intake for at least 8 hours. Fasting glucose between 100 mg/dl to 125 mg/dl is diagnostic of prediabetes. In a patient with classic symptoms of hyperglycemia or hyperglycemic crisis, a random glucose >/= 200 mg/dl is diagnostic for diabetes. In the absence of unequivocal hyperglycemia, results should be confirmed by repeat testing. The classification and Diagnosis of Diabetes Diabetes Care 202; 46: S19-S40. Current interpretive data was last revised 2022. Calcium 10.2 8.5 - 10.3 mg/dL [facility] Bilirubin, total 0.3 0.1 - 1.2 mg/dL [facility] Protein, pl 7.9 6.5 - 8.5 g/dL [facility] Albumin 4.6 3.5 - 5.0 g/dL [facility] Alk phos 104 40 - 130 Units/L [facility] ALT <5(L) 7 - 45 Units/L [facility] AST 25 10 - 45 Units/L [facility] Blood 05/13/2024 11:5 9 AM OFFICE COORDINATOR 05/13/2024 12:56 PM OFFICE COORDINATOR us Sidney Westfall MD LAB BLOOD ORDERABLES Final Re sult [facility] Department [place] [address] * POCT hemoglobin A1c (02/18/2024 12:34 PM CDT) Hemoglobin A1C, POC 5.5 4.0 - 5.6 % Blood 02/18/2024 12:3 4 PM CDT us Sidney Westfall MD POINT OF CARE TEST ORDERABLES Final Result * Hepatitis C antibody Blood (11/06/2023 10:16 AM CDT) Hep C Ab Non Reactive Non Reactive [facility] - 01 Comment: HCV antibody alone does not differentiate between previously resolved infection and active infection. Equivocal and Reactive HCV antibody results should be followed up with an HCV RNA test to support the diagnosis of active HCV infection. Blood 11/06/2023 10:1 6 AM CDT 11/06/2023 Narrative [facility] - 11/07/2023 11:13 AM CDT Performed at: [address] [place] [id number] [employer]ife Machine Cutter: Abraham Bob PhD, Phone: [phone] us Sidney Westfall MD LAB MICROBIOLOGY - GENERAL OR DERABLES Final Result [facility] - 01 * POCT lipid panel (11/06/2023 9:47 AM CDT) Cholesterol, POC 201 mg/dL HDL, POC 42 mg/dL Triglycerides, POC 88 mg/dL LDL Cholesterol POC 141 mg/dL Non-HDL Cholesterol, POC 158 mg/dL Cholesterol Total, POC 201 mg/dL Capillary blood 11/06/2023 9 :47 AM CDT Sidney Westfall MD POINT OF CARE TEST ORDERABLES Final Result * Colonoscopy (06/09/2019) Anatomical Region Laterality Modality Other Narrative 06/09/2019 Pt reports she had granite in 2020 she says it was normal Historical Provider ENDOSCOPY PROCEDURES Jenny l Result from Last 3 Months or Most Recently Relevant to Health Maintenance Insurance MEDICARE [facility] [place] [address] MEDICARE [facility] MEDICARE [facility] MEDICARE Advance Directives For more information, please contact: [phone] * Full Code (Latest Code Status on File) Date Activated Date Inactivated Comments 06/14/2024 1:09 PM 06/17/2024 8:37 PM * Full Code Date Activated Date Inactivated Comments 04/25/2022 10:48 PM 04/27/2022 3:40 PM Care Teams Rubbish Collector Relationship Specialty Start Date End Date Sidney Westfall MD [id number] [address] PCP - General Internal Medicine 03/28/20
--- OUTSIDE RECORDS SUMMARY | 2024-07-29 08:12 | XMS_ITS | Clinical Summary ---
Author Organization Unknown Care Team Providers [employer] Engineer Name Role Phone GEORGINA ELKINS, ELY Unavailable Unavailable CHARLENE PACHECO RN Unavailable Unavailable Payers Payer Name Policy Type Policy Number Effective Date Expira tion Date MEDICARE - [place] [facility] [id number] Problems Condition Name Condition Details Condition Category Status Onset Date Resolution Date Last Treatment Date Treating Clinician Comments OTH FRACTURE OF RIGHT PATELLA, SUBS FOR CLOS FX W ROUTN HEAL Active 06-17 00:00: 00 Allergies, Adverse Reactions, Alerts Allergy Name Allergy Type Status Severity Reaction(s) Onset Date Inactive Date Treating Clinician Comments NKA Propensity to adverse reactions Active 2024-07 23:50:4 8 Immunizations Ordered Immunization Name Filled Immunization Name Date Status Comments Refusal Reason INFLUENZA, TIV (INACTIVATED) 2024-03-17 00:00:00 PNEUMOCOCCAL (PPV), PPV 2023-07-29 00:00:00 Vital Signs Vital Name Observation Time Observation Value Commen ts Temperature 2024-07-26 11:13:00.000 97.3 [degF] Temperature 2024-07-21 13:23:00.000 97.1 [degF] BMI (%) 2024-07-21 13:23:00.000 23 kg/m2 Height 2024-07-21 13:23:00.000 67 [in_us] Pulse 2024-07-26 11:13:00.000 103 /min Pulse 2024-07-21 13:23:00.000 100 /min O2 Saturation (%) 2024-07-26 11:13:00.000 98 % O2 Saturation (%) 2024-07-21 13:23:00.000 95 % Respirations 2024-07-26 11:13:00.000 18 /min Respirations 2024-07-21 13:23:00.000 18 /min Weight (lbs) 2024-07-21 13:23:00.000 147 [lb_av] Systolic Blood Pressure 2024-07-26 11:13:00.000 126 mm [Hg] Systolic Blood Pressure 2024-07-21 13:23:00.000 118 mm [Hg] Diastolic Blood Pressure 2024-07-26 11:13:00.000 72 mm [Hg] Diastolic Blood Pressure 2024-07-21 13:23:00.000 64 mm [Hg] Plan of Treatment Planned Activity Planned Date Details Comments Future Scheduled Test SKILLED NU RSE TO EVALUATE PATIENT, IDENTIFY PRIMARY AND CO-MORBID CONDITIONS CODED PER CODING GUIDELINES, AND DEVELOP PATIENT SPECIFIC PLAN OF CARE THAT INCLUDES PATIENT GOAL FOR HOME HEALTH. [code = SKILLED NURSE TO EVALUATE PATIENT, IDENTIFY PRIMARY AND CO-MORBID CONDITIONS CODED PER CODING GUIDELINES, AND DEVELOP PATIENT SPECIFIC PLAN OF CARE THAT INCLUDES PATIENT GOAL FOR HOME HEALTH.] Future Scheduled Test PATIENT HENSLEY S A RISK OF HOSPITALIZATION AND ED USE. SKILLED NURSE TO ESTABLISH SUPPORT MEASURES TO MINIMIZE RISK OF HOSPITALIZATION AND ED USE, AND INSTRUCT PATIENT/CAREGIVER ON METHODS TO REDUCE AVOIDABLE HOSPITALIZATION AND ED USE. [code = PATIENT HAS A RISK OF HOSPITALIZATION AND ED USE. SKILLED NURSE TO ESTABLISH SUPPORT MEASURES TO MINIMIZE RISK OF HOSPITALIZATION AND ED USE, AND INSTRUCT PATIENT/CAREGIVER ON METHODS TO REDUCE AVOIDABLE HOSPITALIZATION AND ED USE.] Future Scheduled Test SKILLED NU RSE TO PROVIDE INSTRUCTION TO PATIENT/CAREGIVER RELATED TO DISCHARGE PLANNING. [code = SKILLED NURSE TO PROVIDE INSTRUCTION TO PATIENT/CAREGIVER RELATED TO DISCHARGE PLANNING.] Future Scheduled Test SKILLED NU RSE TO PERFORM ENVIRONMENTAL SAFETY RISK ASSESSMENT AND FALL RISK ASSESSMENT AND PROVIDE INSTRUCTION TO IMPLEMENT ENVIRONMENTAL SAFETY AND FALL PREVENTION STRATEGIES THROUGHOUT THE CERTIFICATION PERIOD. SKILLED NURSE WILL MAINTAIN SITUATIONAL AWARENESS AND WILL NOTIFY CLINICAL AGRONOMY ADVISOR AND PHYSICIAN/PROVIDER WITH ANY CHANGE IN CONDITION. [code = SKILLED NURSE TO PERFORM ENVIRONMENTAL SAFETY RISK ASSESSMENT AND FALL RISK ASSESSMENT AND PROVIDE INSTRUCTION TO IMPLEMENT ENVIRONMENTAL SAFETY AND FALL PREVENTION STRATEGIES THROUGHOUT THE CERTIFICATION PERIOD. SKILLED NURSE WILL MAINTAIN SITUATIONAL AWARENESS AND WILL NOTIFY CLINICAL AGRONOMY ADVISOR AND PHYSICIAN/PROVIDER WITH ANY CHANGE IN CONDITION.] Future Scheduled Test SKILLED NU RSE TO ASSESS PATIENT'S SKIN INTEGRITY AND INSTRUCT PATIENT/CAREGIVER ON MEASURES TO PREVENT PRESSURE ULCERS. [code = SKILLED NURSE TO ASSESS PATIENT'S SKIN INTEGRITY AND INSTRUCT PATIENT/CAREGIVER ON MEASURES TO PREVENT PRESSURE ULCERS.] Future Scheduled Test SKILLED NU RSE FOR OBSERVATION AND ASSESSMENT OF PATIENTS PAIN LEVEL AND EFFECTIVENESS OF PAIN MANAGEMENT REGIMEN. SKILLED NURSE TO INSTRUCT PATIENT/CAREGIVER REGARDING PHARMACOLOGIC AND NON-PHARMACOLOGIC PAIN CONTROL MEASURES. SKILLED NURSE TO REPORT TO PHYSICIAN IF PAIN IS UNCONTROLLED WITH CURRENT PAIN MANAGEMENT REGIMEN. [code = SKILLED NURSE FOR OBSERVATION AND ASSESSMENT OF PATIENTS PAIN LEVEL AND EFFECTIVENESS OF PAIN MANAGEMENT REGIMEN. SKILLED NURSE TO INSTRUCT PATIENT/CAREGIVER REGARDING PHARMACOLOGIC AND NON-PHARMACOLOGIC PAIN CONTROL MEASURES. SKILLED NURSE TO REPORT TO PHYSICIAN IF PAIN IS UNCONTROLLED WITH CURRENT PAIN MANAGEMENT REGIMEN.] Future Scheduled Test SKILLED NU RSE FOR O/A AND SKILLED TEACHING RELATED TO SIGNS AND SYMPTOMS AND MANAGEMENT OF RIGHT PATELLAR FRACTURE. [code = SKILLED NURSE FOR O/A AND SKILLED TEACHING RELATED TO SIGNS AND SYMPTOMS AND MANAGEMENT OF RIGHT PATELLAR FRACTURE.] Future Scheduled Test SKILLED NU RSE TO REVIEW PATIENT MEDICATIONS. INSTRUCT PATIENT/CAREGIVER ON MONITORING OF EFFECTIVENESS, ADVERSE DRUG REACTIONS, SIDE EFFECTS OF ALL MEDICATIONS (PRESCRIPTION/-OTC), AND HOW AND WHEN TO REPORT PROBLEMS. [code = SKILLED NURSE TO REVIEW PATIENT MEDICATIONS. INSTRUCT PATIENT/CAREGIVER ON MONITORING OF EFFECTIVENESS, ADVERSE DRUG REACTIONS, SIDE EFFECTS OF ALL MEDICATIONS (PRESCRIPTION/-OTC), AND HOW AND WHEN TO REPORT PROBLEMS.] Future Scheduled Test SKILLED NU RSE FOR O/A AND TEACHING OF DIABETIC MANAGEMENT INCLUDING BLOOD SUGAR MONITORING/USE OF GLUCOMETER, DIABETIC DIET, LOWER EXTREMITY SKIN INSPECTION, PROPER SKIN/FOOT CARE, AND SIGNS AND SYMPTOMS HYPO/HYPERGLYCEMIA TO REPORT. [code = SKILLED NURSE FOR O/A AND TEACHING OF DIABETIC MANAGEMENT INCLUDING BLOOD SUGAR MONITORING/USE OF GLUCOMETER, DIABETIC DIET, LOWER EXTREMITY SKIN INSPECTION, PROPER SKIN/FOOT CARE, AND SIGNS AND SYMPTOMS HYPO/HYPERGLYCEMIA TO REPORT.] Future Scheduled Test SKILLED NU RSE TO PERFORM AND RECORD BLOOD SUGAR READING PRN FOR SIGNS AND SYMPTOMS OF HYPO/HYPERGLYCEMIA. [code = SKILLED NURSE TO PERFORM AND RECORD BLOOD SUGAR READING PRN FOR SIGNS AND SYMPTOMS OF HYPO/HYPERGLYCEMIA.] Future Scheduled Test PHYSICAL T HERAPIST TO EVALUATE PATIENT FOR GAIT TRAINING AND WEAKNESS. [code = PHYSICAL THERAPIST TO EVALUATE PATIENT FOR GAIT TRAINING AND WEAKNESS.] Future Scheduled Test SKILLED NU RSE TO INSTRUCT PATIENT/CAREGIVER ON SIGNS AND SYMPTOMS AND METHODS TO MANAGE PARKINSON'S DISEASE PROGRESSION. [code = SKILLED NURSE TO INSTRUCT PATIENT/CAREGIVER ON SIGNS AND SYMPTOMS AND METHODS TO MANAGE PARKINSON'S DISEASE PROGRESSION.] Goal Patient Goal - TO STAY AT [facility] Goal Provider Goal - A PLAN OF CARE WILL BE ESTABLISHED THAT MEETS PATIENT'S ASSISTED NEEDS AND INCLUDES PATIENT GOAL FOR HOME HEALTH. Goal Provider Goal - PATIENT WILL HAVE SUPPORT MEASURES ESTABLISHED TO PREVENT HOSPITALIZATION AND ED USE AND PATIENT/CAREGIVER WILL VERBALIZE/DEMONSTRATE METHODS TO REDUCE AVOIDABLE HOSPITALIZATION AND ED USE BY END OF EPISODE. Goal Provider Goal - PATIENT/CAREGIVER WILL VERBALIZE UNDERSTANDING OF DISCHARGE PLANNING INSTRUCTIONS BY DATE OF DISCHARGE. Goal Provider Goal - PATIENT/CAREGIVER WILL VERBALIZE/DEMONSTRATE EFFECTIVE ENVIRONMENTAL SAFETY AND FALL PREVENTION STRATEGIES, WILL REMAIN SAFE IN THE COMMUNITY, AND WILL BE FREE OF DANGER TO SELF AND OTHERS THROUGHOUT THE CERTIFICATION PERIOD. Goal Provider Goal - PATIENT/CAREGIVER WILL VERBALIZE UNDERSTANDING OF PRESSURE ULCER PREVENTION BY END OF THE EPISODE. Goal Provider Goal - PATIENT/CAREGIVER WILL DEMONSTRATE UNDERSTANDING OF PHARMACOLOGIC AND NONPHARMACOLOGIC PAIN CONTROL MEASURES AND PATIENT WILL HAVE IMPROVEMENT IN PAIN INTERFERING WITH ACTIVITY EVIDENCED BY PAIN CONTROLLED AT LEVEL OF 5 ON 0-10 PAIN SCALE OR LESS BY END OF CERTIFICATION PERIOD. Goal Provider Goal - PATIENT/CAREGIVER WILL VERBALIZE UNDERSTANDING OF RIGHT PATELLAR FRACTURE INCLUDING SIGNS AND SYMPTOMS, MANAGEMENT, AND PRESCRIBED TREATMENT REGIMEN BY END OF EPISODE. Goal Provider Goal - PATIENT/CAREGIVER WILL VERBALIZE UNDERSTANDING OF EDUCATION PROVIDED ON MEDICATIONS BY THE END OF THE CERTIFICATION PERIOD. Goal Provider Goal - PATIENT/CAREGIVER WILL VERBALIZE/DEMONSTRATE KNOWLEDGE OF DIABETIC MANAGEMENT. CHANGES IN DIABETIC STATUS WILL BE IDENTIFIED AND REPORTED TO PHYSICIAN FOR PROMPT INTERVENTION THROUGHOUT THE CERTIFICATION PERIOD. Goal Provider Goal - BLOOD SUGAR READING WILL BE OBTAINED ORDERED THROUGHOUT CERTIFICATION PERIOD. Goal Provider Goal - A PHYSICAL THERAPY EVALUATION TO BE COMPLETED WITH RECOMMENDATIONS AND/OR WRITTEN PLAN OF TREATMENT ESTABLISHED FOR PHYSICIANS SIGNATURE. Goal Provider Goal - PATIENT/CAREGIVER WILL VERBALIZE SIGNS AND SYMPTOMS OF PARKINSON'S DISEASE AND DEMONSTRATE METHODS TO MANAGE DISEASE PROCESS BY END OF CERTIFICATION PERIOD. Progress Notes Progress Notes <paragraph>[Visit Date: 2024 by CRISTY RAO LPN]:</paragraph><paragraph>SARA WAS SEEN TODAY FOR ROUTINE NURSING VISIT. SHE WAS UP TO GREET THIS NURSE AT THE DOOR USING HER WHEELED WALKER. SHE LIVES ALONE WITH HER DOG. SHE DOES HAVE NEIGHBORS TO HELP HER WHEN SHE NEEDS HELP. VITAL SIGNS WERE OBTAINED AND ALL WITHIN NORMAL LIMITS. SHE DENIES ANY PAIN, QUESTIONS OR CONCERNS. HEART RATE AND RHYTHM REGULAR. SHE DENIED ANY CHEST PAIN OR DIZZINESS. LUNGS SOUNDS CLEAR BILATERALLY UPON AUSCULTATION. NO SHORTNESS OF BREATH OR COUGH NOTED. ABDOMEN SOFT AND NONTENDER. BOWEL SOUNDS ACTIVE. LAST BM WAS YESTERDAY. SHE DENIES ANY UTI SYMPTOMS INCLUDING BUT NOT LIMITED TO BURNING WITH URINATION, DARK URINE OR FOUL ODOR. NO EDEMA NOTED TO BILATERAL LOWER EXTREMITIES. SHE DENIED ANY FALLS, ER VISITS OR CHANGES IN MEDICATION SINCE LAST ASSISTED VISIT. SHE REMAINS HOMEBOUND DUE TO LIMITED MOBILITY, HIGH FALL RISK AND NEEDING ASSISTANCE TO LEAVE THE HOME SAFELY. EDUCATION THIS VISIT WAS FOCUSED ON SAFETY AND DIABETES MANAGEMENT. SHE CHECKS HER BLOOD SUGAR DAILY. HER BLOOD SUGAR THIS MORNING WAS 140. SHE STATES THAT HER BLOOD SUGARS TYPICALLY RANGE IN THE 140S UNLESS SHE EATS SOMETHING SHE SHOULDNT. SIGNS OF HYPER AND HYPOGLYCEMIA REVIEWED. SHE IS VERY UNDERSTANDING AND RECEPTIVE OF THIS EDUCATION. CALENDAR REVIEWED REGARDING NEXT VISIT. SHE WAS EDUCATED AND IS AGREEABLE TO CALLING [facility] FIRST WITH ANY QUESTIONS, CONCERNS OR CHANGES IN CONDITION.</paragraph> Encounters Start Date/Time End Date/Time Encounter Type Admission Type Attending Clinicians Care Facility Care Department Encounter ID Discharge Date Discharge Status Discharge Condition Discharge Reason Percent Goals Met 2024-07-21 00:00:00 2024-09-18 00:00:00 Outpatient NEW ADMISSION CHARLENE PACHECO [facility] [id number]
--- OUTSIDE RECORDS SUMMARY | 2024-07-29 08:12 | XMS_ITS | Clinical Summary ---
Author Organization [facility] Virtual Care Address [address] [place] [phone] Phone Care Team Providers Care Caddymaster Name Role Phone Sidney Westfall MD Primary Care Provider [phone] Allergies No known active allergies Medications albuterol HFA (Proventil HFA) 90 mcg/actuation inhaler Inhale 2 puffs every 4 (four) hours as needed for wheezing or shortness of breath 3 each 1 3 Active pen needle, diabetic, safety 31 gauge x /16 needleIndications: Type 2 diabetes mellitus without complication, unspecified whether fpc insulin use (HCC) 45 Units daily inject [...] Rx Assessment & Plan (07/10/2020 10:39 AM ANIMAL CARE WORKER): A1c at target. Will continue present Rx. Check BMP and microalbumin Hyperlipidemia 07/10/2020 Assessment & Plan (02/18/2024 1:11 PM CDT): Doing well at this time Assessment & Plan (07/10/2020 10:39 AM ANIMAL CARE WORKER): Lipid elevated. Consider ezetemibe in the future. Essential hypertension 07/10/2020 Assessment & Plan (02/18/2024 1:11 PM CDT): BP at target Assessment & Plan (07/10/2020 10:39 AM ANIMAL CARE WORKER): Blood pressure at target doing well Anxiety 07/10/2020 Assessment & Plan (07/10/2020 10:39 AM ANIMAL CARE WORKER): Will increase alprazolam 2.5 b.i.d. Orthostatic hypotension Encounters Date Type Department Care Team Description 07/20/2024 [facility] [address] [place] [phone] Sidney Westfall MD home health orders 07/13/2024 10:15 AM ANIMAL CARE WORKER Office Visit [facility] [address] [place] [phone] Demarco Rainey NP Right knee pain, unspecified chronicity (Primary Dx); Closed nondisplaced longitudinal fracture of right patella, initial encounter 07/13/2024 7:39 AM ANIMAL CARE WORKER - 07/13/2024 11:59 PM ANIMAL CARE WORKER Hospital Encounter [facility] [address] [place] [phone] Discharge Disposition: Discharge to home or self care 07/12/2024 [facility] [address] [place] [phone] Sidney Westfall MD Scheduling Testing/Treatment 06/14/2024 11:17 AM ANIMAL CARE WORKER - 06/17/2024 4:37 PM ANIMAL CARE WORKER Hospital Encounter [facility] [address] [place] [address] Arash Zazueta Jr., MD Okonkwo, Kasiemobi Bernice, MD Singh, Supriya, MD Closed sleeve fracture of right patella, initial encounter (Primary Dx) Discharge Disposition: Discharge to [facility] 05/13/2024 12:55 PM ANIMAL CARE WORKER [facility] [address] [place] [phone] Type 2 diabetes mellitus without complication, without long-term current use of insulin (HCC); Mixed hyperlipidemia; Essential hypertension; Parkinson'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, with fluctuating manifestations (HCC); Anemia, unspecified type 05/13/2024 11:00 AM ANIMAL CARE WORKER Office Visit [facility] [address] [facility] [address] [place] [phone] Sidney Westfall MD Type 2 diabetes mellitus without complication, without long-term current use of insulin (HCC) (Primary Dx); Mixed hyperlipidemia; Essential hypertension; Parkinson'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, with fluctuating manifestations (HCC); Anemia, unspecified type 05/13/2024 Telephone [facility] Scheduling [address] [place] [address] Felipe Rivas MD Scheduling Appointments from Last 3 Months Immunizations Immunization Administration Dates Next Due COVID-19 mRNA (Temporal Power) 0.3 m L (30 mcg) vaccine (12 [...] PF, IM (Arexvy) 03/05/2023 ZOSTER Recombinant 01/03/2023,09/18/2022 Surgical History Surgery Date Site/Laterality Comments BREAST LUMPECTOMY FOOT SURGERY CARPAL TUNNEL RELEASE NECK SURGERY Medical History Medical History Date Comments Hyperlipidemia Hypertension Anxiety Family History Medical History Relation Name Comments Diabetes Father Heart disease Father Heart disease Mother Relation Name Status Comments Father Mother Social History Tobacco Use Types Packs/Day Years [...] on file Legal Sex Female 12:14 AM ANIMAL CARE WORKER Gender Identity Female 11/17/2023 1:33 PM CDT Sexual Orientation Straight 11/17/2023 1: 33 PM CDT Obstetrics History Last Filed Vital Signs Vital Sign Reading Time Taken Comments Blood Pressure 119/63 07/13/2024 10:38 AM ANIMAL CARE WORKER Pulse 99 07/13/2024 10:38 AM ANIMAL CARE WORKER Temperature 36.3 C (97.3 F) 06/17/2024 2:55 PM ANIMAL CARE WORKER Respiratory Rate 18 06/17/2024 2:55 PM ANIMAL CARE WORKER Oxygen Saturation 94% 06/17/2024 2:55 PM ANIMAL CARE WORKER Inhaled Oxygen Concentration - - Weight 66.2 kg (146 lb) 07/13/2024 10:38 AM ANIMAL CARE WORKER Height 170.2 cm (5' 7 ) 07/13/2024 10:38 AM ANIMAL CARE WORKER Body Mass Index 22.87 07/13/2024 10:38 AM ANIMAL CARE WORKER Plan of Treatment Health Maintenance Due Date Last Done Comments Dilated Eye Exam 1950 Foot Exam 1950 DTaP/Tdap/Td Vaccine (1 - Tdap) 1961 Hepatitis B Screening 1968 Well Visit 65+ 2015 Breast Cancer Screening-Mammogram 2023 023 Hemoglobin A1C 08/18/2024 02/18/2024, 10/18, 05/06/2023, Additional history exists Covid-19 Vaccine (2023- 5 season) 2024 03/08/2024, 04/01/2022, 04/09/2021 Lipid Panel 11/05/2024 11/06/2023, 1201/2022, 10/09/2021, Additional history exists Osteoporosis Screening-Bone Density Scan 11/07/2024 11/07/2022 Albumin Creatinine Ratio, Urine 05/13/2025 , 11/06/2023 Depression Screening 06/14/2025 06/14/2024, 04/25/2022, 04/25/2022 eGFR 06/16/2025 06/16/2024, 05/20, 05/13/2024, Additional history exists Fall Risk Assessment 06/17/2025 06/17/2024 Colon Cancer Screening-Colonoscopy 06/09/2029 06/09/2019 Colon Cancer Screening-CT Colonography Discontinued 06/09/2019 Colon Cancer Screening-DNA Stool Discontinued 06/09/19 Colon Cancer Screening-FIT Discontinued 06/09/2019 Colon Cancer Screening-Sigmoidoscopy Discontinued 06/09/2019 Zoster Vaccine Completed 01/03/2023, 09/18/2022 Pneumococcal vaccine 65+ Completed 023, 09/18/2022, 03/01/2018 Hepatitis C Screening Completed 11/06/2023 Influenza Vaccine Completed 03/08/2024, , 04/01/2022, Additional history exists Procedures Procedure Name Priority Date/Time Associated Diagnosis Comments XR KNEE RIGHT 3 VIEWS Schedule Routine, Read Routine (OP Routine) 07/13/2024 10:34 AM ANIMAL CARE WORKER Right knee pain, unspecified chronicity POCT GLUCOSE DEVICE Routine 06/17/2024 4 :01 PM ANIMAL CARE WORKER POCT GLUCOSE DEVICE Routine 06/17/2024 11:33 AM ANIMAL CARE WORKER POCT GLUCOSE DEVICE Routine 06/17/2024 7 :32 AM ANIMAL CARE WORKER DIFFERENTIAL AUTO Routine 06/17/2024 4:2 2 AM ANIMAL CARE WORKER CBC WITH AUTO DIFFERENTIAL Routine 06/17/2024 4:22 AM ANIMAL CARE WORKER POCT GLUCOSE DEVICE Routine 06/17/2024 2 :05 AM ANIMAL CARE WORKER POCT GLUCOSE DEVICE Routine 06/16/2024 8 :43 PM ANIMAL CARE WORKER POCT GLUCOSE DEVICE Routine 06/16/2024 4 :13 PM ANIMAL CARE WORKER POCT GLUCOSE DEVICE Routine 06/16/2024 11:08 AM ANIMAL CARE WORKER EGFR Timed 06/16/2024 7:59 AM ANIMAL CARE WORKER DIFFERENTIAL AUTO Routine 06/16/2024 7:5 9 AM ANIMAL CARE WORKER CBC WITH AUTO DIFFERENTIAL Routine 06/16/2024 7:59 AM ANIMAL CARE WORKER BASIC METABOLIC PANEL Timed 06/16/2024 7:59 AM ANIMAL CARE WORKER POCT GLUCOSE DEVICE Routine 06/16/2024 7 :10 AM ANIMAL CARE WORKER POCT GLUCOSE DEVICE Routine 06/16/2024 2 :34 AM ANIMAL CARE WORKER POCT GLUCOSE DEVICE Routine 06/15/2024 7 :56 PM ANIMAL CARE WORKER POCT GLUCOSE DEVICE Routine 06/15/2024 4 :36 PM ANIMAL CARE WORKER POCT GLUCOSE DEVICE Routine 06/15/2024 11:10 AM ANIMAL CARE WORKER POCT GLUCOSE DEVICE Routine 06/15/2024 7 :34 AM ANIMAL CARE WORKER POCT GLUCOSE DEVICE Routine 06/15/2024 2 :05 AM ANIMAL CARE WORKER POCT GLUCOSE DEVICE Routine 06/14/2024 9 :01 PM ANIMAL CARE WORKER POCT GLUCOSE DEVICE Routine 06/14/2024 4 :25 PM ANIMAL CARE WORKER EGFR STAT 06/14/2024 12:14 PM ANIMAL CARE WORKER DIFFERENTIAL AUTO STAT 06/14/2024 12:14 PM ANIMAL CARE WORKER COMPREHENSIVE METABOLIC PANEL STAT 06/14/2024 12:14 PM ANIMAL CARE WORKER CBC WITH AUTO DIFFERENTIAL STAT 06/14/2024 12:14 PM ANIMAL CARE WORKER XR KNEE RIGHT 4 OR MORE VIEWS ED 06/14/2024 11:21 AM ANIMAL CARE WORKER EGFR Routine 05/13/2024 11:59 AM ANIMAL CARE WORKER Type 2 diabetes mellitus without complication, without long-term current use of insulin (HCC) Mixed hyperlipidemia Essential hypertension Parkinson'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, with fluctuating manifestations (HCC) Anemia, unspecified type DIFFERENTIAL AUTO Routine 05/13/2024 11:59 AM ANIMAL CARE WORKER Type 2 diabetes mellitus without complication, without long-term current use of insulin (HCC) Mixed hyperlipidemia Essential hypertension Parkinson'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, with fluctuating manifestations (HCC) Anemia, unspecified type COMPREHENSIVE METABOLIC PANEL Routine 05/13/2024 11:59 AM ANIMAL CARE WORKER Type 2 diabetes mellitus without complication, without long-term current use of insulin (HCC) Mixed hyperlipidemia Essential hypertension Parkinson'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, with fluctuating manifestations (HCC) Anemia, unspecified type TSH Routine 05/13/2024 11:59 AM ANIMAL CARE WORKER Type 2 diabetes mellitus without complication, without long-term current use of insulin (HCC) Mixed hyperlipidemia Essential hypertension Parkinson'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, with fluctuating manifestations (HCC) Anemia, unspecified type ALBUMIN CREATININE RATIO, URINE Routine 05/13/2024 11:59 AM ANIMAL CARE WORKER Type 2 diabetes mellitus without complication, without long-term current use of insulin (HCC) Mixed hyperlipidemia Essential hypertension Parkinson'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, with fluctuating manifestations (HCC) Anemia, unspecified type CBC WITH AUTO DIFFERENTIAL Routine 05/13/2024 11:59 AM ANIMAL CARE WORKER Type 2 diabetes mellitus without complication, without [...] 2 diabetes mellitus without complication, unspecified whether superintendent container terminal insulin use (HCC) Mixed hyperlipidemia Parkinson's disease [...] Knee Right 3 View (07/13/2024 10:34 AM ANIMAL CARE WORKER) Anatomical Region Laterality Modality Lower Extremities, Knee Right Digital Radiography Narrative 07/13/2024 11:40 AM ANIMAL CARE WORKER 4 view of the knee show mild tricompartmental osteoarthritis. No dislocations noted. Minimally displaced lateral facet fracture is again viewed, no worsening displacement. Interval callus noted us Demarco Rainey RIPSAW GRADER IMG XR PROCEDURES Final Result * POCT glucose (06/17/2024 4:01 PM ANIMAL CARE WORKER) Glucose, POC 113 70 - 199 mg/dL Blood 06/17/2024 4:01 PM ANIMAL CARE WORKER 06/17/2024 4:01 PM ANIMAL CARE WORKER us Dillon Romano MD LAB POCT ORDERABLES - DEVICE Final Result [facility] ([place]) 1 [facility] [place] [place] [address] * POCT glucose (06/17/2024 11:33 AM ANIMAL CARE WORKER) Glucose, POC 177 70 - 199 mg/dL Blood 06/17/2024 11:3 3 AM ANIMAL CARE WORKER 06/17/2024 11:33 AM ANIMAL CARE WORKER Dillon Romano MD LAB POCT ORDERABLES - DEVICE Final Result [facility] ([place]) 1 [place] [address] * POCT glucose (06/17/2024 7:32 AM ANIMAL CARE WORKER) Glucose, POC 177 70 - 199 mg/dL Blood 06/17/2024 7:32 AM ANIMAL CARE WORKER 06/17/2024 7:32 AM ANIMAL CARE WORKER Dillon Romano MD LAB POCT ORDERABLES - DEVICE Final Result Performing Organization Address City/[facility]/ZIP Co de Phone Number [facility] ([place]) 1 [facility] [place] [address] * Differential, auto (06/17/2024 4:22 AM ANIMAL CARE WORKER) Neutrophil abs 3.0 1.5 - 6.5 K/cumm [...] revised on 2017. Monocyte pct 10.6 % [facility] ([place]) Comment: Interpretive Data [...] revised on 2017. Basophil pct 0.6 % [facility] ([place]) Comment: Interpretive Data Percent cell count reference ranges are not reported, since discordance with absolute values may lead to misinterpretation of CBC data. Current Interpretive Data was last revised on 2017. Blood 06/17/2024 4:22 AM ANIMAL CARE WORKER 06/17/2024 4:38 AM ANIMAL CARE WORKER us Arash Zazueta Jr., MD LAB BLOOD ORDERABLE S Final Result [facility] ([place]) 1 [facility] Department of Laboratories [place], [place] [id number] * (ABNORMAL) CBC with auto differential (06/17/2024 4:22 AM ANIMAL CARE WORKER) WBC 5.3 3.8 - 9.9 K/cumm Hgb 9.8(L) 11.9 - 15.5 g/dL [facility] ([place]) Hct 30.2(L) 35.6 - 45.5 % [...] RDW SD 43.1 35.7 - 48.1 fL [facility] ([place]) NRBC abs 0.00 0.00 - 0.01 K/cumm [facility] ([place]) Blood 06/17/2024 4:22 AM ANIMAL CARE WORKER 06/17/2024 4:38 AM ANIMAL CARE WORKER us Arash Zazueta Jr., MD LAB BLOOD ORDERABLE S Final Result [facility] ([place]) 1 [facility] [employer] [place] [address] * POCT glucose (06/17/2024 2:05 AM ANIMAL CARE WORKER) Glucose, POC 179 70 - 199 mg/dL Blood 06/17/2024 2:05 AM ANIMAL CARE WORKER 06/17/2024 2:05 AM ANIMAL CARE WORKER us Dillon Romano MD LAB POCT ORDERABLES - DEVICE Final Result [facility] ([place]) 1 [facility] [employer] [place] [address] * POCT glucose (06/16/2024 8:43 PM ANIMAL CARE WORKER) Glucose, POC 191 70 - 199 mg/dL Blood 06/16/2024 8:43 PM ANIMAL CARE WORKER 06/16/2024 8:43 PM ANIMAL CARE WORKER us Dillon Romano MD LAB POCT ORDERABLES - DEVICE Final Result Performing Organization Address [facility] Co de Phone Number SHAKE[facility] MERRITT ([place]) 1 [facility] [place] [address] * POCT glucose (06/16/2024 4:13 PM ANIMAL CARE WORKER) Glucose, POC 154 70 - 199 mg/dL Blood 06/16/2024 4:13 PM ANIMAL CARE WORKER 06/16/2024 4:13 PM ANIMAL CARE WORKER Dillon Romano MD LAB POCT ORDERABLES - DEVICE Final Result Performing Organization Address [facility] Co de Phone Number SHAKEEL MERRITT ([place]) 1 [facility] [place] [address] * POCT glucose (06/16/2024 11:08 AM ANIMAL CARE WORKER) Glucose, POC 194 70 - 199 mg/dL Blood 06/16/2024 11:0 8 AM ANIMAL CARE WORKER 06/16/2024 11:08 AM ANIMAL CARE WORKER Dillon Romano MD LAB POCT ORDERABLES - DEVICE Final Result Performing Organization Address [facility] Co de Phone Number SHAKE[facility] MERRITT ([place]) 1 [facility] [place] [address] * (ABNORMAL) eGFR (06/16/2024 7:59 AM ANIMAL CARE WORKER) eGFR 57(L) >=60 mL/min/1. 73 m2 Comment: [...] last reviewed 2021. Blood 06/16/2024 7:59 AM ANIMAL CARE WORKER 06/16/2024 8:45 AM ANIMAL CARE WORKER us Arash Zazueta Jr., MD LAB BLOOD ORDERABLE S Final Result [facility] ([place]) 1 [facility] [place] [address] * Differential, auto (06/16/2024 7:59 AM ANIMAL CARE WORKER) Neutrophil abs 3.4 1.5 - 6.5 K/cumm [...] revised on 2017. Blood 06/16/2024 7:59 AM ANIMAL CARE WORKER 06/16/2024 8:45 AM ANIMAL CARE WORKER us Arash Zazueta Jr., MD LAB BLOOD ORDERABLE S Final Result [facility] ([place]) 1 [facility] [place] [address] * (ABNORMAL) CBC with auto differential (06/16/2024 7:59 AM ANIMAL CARE WORKER) WBC 5.3 3.8 - 9.9 K/cumm Hgb 10.4(L) 11.9 - 15.5 g/dL [facility] ([place]) Hct 32.4(L) 35.6 - 45.5 % [facility] ([place]) Plt 285 150 - 400 K/cumm [facility] ([place]) MPV 9.1 9.1 - 12.3 fL [facility] ([place]) RBC 3.65(L) 3.90 - 5.20 M/cumm [facility] ([place]) MCV 88.8 81.3 - 96.4 fL [facility] ([place]) MCH 28.5 27.1 - 33.3 pg [facility] ([place]) MCHC 32.1(L) 32.3 - 35.7 g/dL [facility] RDW CV 13.2 11.1 - 14.9 % [facility] ([place]) RDW SD 43.4 35.7 - 48.1 fL [facility] ([place]) NRBC abs 0.00 0.00 - 0.01 K/cumm [facility] ([place]) Blood 06/16/2024 7:59 AM ANIMAL CARE WORKER 06/16/2024 8:45 AM ANIMAL CARE WORKER us Arash Zazueta Jr., MD LAB BLOOD ORDERABLE S Final Result [facility] ([place]) 1 [facility] [place] [address] * (ABNORMAL) Basic metabolic panel (06/16/2024 7:59 AM ANIMAL CARE WORKER) Sodium 137 135 - 145 mmol/L Potassium, pl 4.4 3.3 - 4.9 mmol/L [facility] ([place]) Chloride 102 97 - 110 mmol/L [facility] ([place]) CO2 22 22 - 32 mmol/L [facility] ([place]) Anion gap 14 2 - 15 mmol/L [facility] ([place]) BUN 22 6 - 25 mg/dL [facility] ([place]) Creatinine 1.03 0.60 - 1.10 mg/dL [facility] ([place] Glucose 201(H) 70 - 199 mg/dL [facility] ([place]) Comment: Interpretive Data Fasting glucose [...] 9.9 8.5 - 10.3 mg/dL [facility] ([place]) Blood 06/16/2024 7:59 AM ANIMAL CARE WORKER 06/16/2024 8:45 AM ANIMAL CARE WORKER us Arash Zazueta Jr., MD LAB BLOOD ORDERABLE S Final Result [facility] ([place]) 1 [facility] [place] [address] * (ABNORMAL) POCT glucose (06/16/2024 7:10 AM ANIMAL CARE WORKER) Glucose, POC 210(H) 70 - 199 mg/dL Comment:Glu2: RN/MD Notified Blood 06/16/2024 7:10 AM ANIMAL CARE WORKER 06/16/2024 7:10 AM ANIMAL CARE WORKER us Dillon Romano MD LAB POCT ORDERABLES - DEVICE Final Result Performing Organization Address City/[facility]/ZIP Co de Phone Number [facility] ([place]) 1 [facility] [place] [address] * POCT glucose (06/16/2024 2:34 AM ANIMAL CARE WORKER) Glucose, POC 177 70 - 199 mg/dL Blood 06/16/2024 2:34 AM ANIMAL CARE WORKER 06/16/2024 2:34 AM ANIMAL CARE WORKER Dillon Romano MD LAB POCT ORDERABLES - DEVICE Final Result Performing Organization Address City/[facility]/ZIP Co de Phone Number [facility]ERRITT ([place]) 1 [facility] [place] [address] * POCT glucose (06/15/2024 7:56 PM ANIMAL CARE WORKER) Glucose, POC 184 70 - 199 mg/dL Blood 06/15/2024 7:56 PM ANIMAL CARE WORKER 06/15/2024 7:56 PM ANIMAL CARE WORKER us Dillon Romano MD LAB POCT ORDERABLES - DEVICE Final Result Performing Organization Address City/[facility]/ZIP Co de Phone Number SHAKEEL MERRITT ([place]) 1 [facility] [place] [address] * POCT glucose (06/15/2024 4:36 PM ANIMAL CARE WORKER) Glucose, POC 193 70 - 199 mg/dL Blood 06/15/2024 4:36 PM ANIMAL CARE WORKER 06/15/2024 4:36 PM ANIMAL CARE WORKER us Dillon Romano MD LAB POCT ORDERABLES - DEVICE Final Result Performing Organization Address [facility] de Phone Number SHAEKEL MERRITT ([place]) 1 [facility] [place] [address] * (ABNORMAL) POCT glucose (06/15/2024 11:10 AM ANIMAL CARE WORKER) Glucose, POC 245(H) 70 - 199 mg/dL Comment:Glu2: RN/MD Notified Blood 06/15/2024 11:1 0 AM ANIMAL CARE WORKER 06/15/2024 11:10 AM ANIMAL CARE WORKER us Dillon Romano MD LAB POCT ORDERABLES - DEVICE Final Result Performing Organization Address City/[facility] Co de Phone Number SHAKEEL MERRITT ([place]) 1 [facility] [place] [address] * POCT glucose (06/15/2024 7:34 AM ANIMAL CARE WORKER) Glucose, POC 166 70 - 199 mg/dL Blood 06/15/2024 7:34 AM ANIMAL CARE WORKER 06/15/2024 7:34 AM ANIMAL CARE WORKER us Dillon Romano MD LAB POCT ORDERABLES - DEVICE Final Result [facility] ([place]) 1 [facility] [place] [address] * POCT glucose (06/15/2024 2:05 AM ANIMAL CARE WORKER) Glucose, POC 185 70 - 199 mg/dL Blood 06/15/2024 2:05 AM ANIMAL CARE WORKER 06/15/2024 2:05 AM ANIMAL CARE WORKER us Arash Zazueta Jr., MD LAB POCT ORDERABLES - DEVICE Final Result [facility] ([place]) 1 [facility] [place] [address] * POCT glucose (06/14/2024 9:01 PM ANIMAL CARE WORKER) Glucose, POC 145 70 - 199 mg/dL Blood 06/14/2024 9:01 PM ANIMAL CARE WORKER 06/14/2024 9:01 PM ANIMAL CARE WORKER us Arash Zazueta Jr., MD LAB POCT ORDERABLES - DEVICE Final Result [facility] ([place]) 1 [facility] [place] [address] * POCT glucose (06/14/2024 4:25 PM ANIMAL CARE WORKER) Glucose, POC 198 70 - 199 mg/dL Blood 06/14/2024 4:25 PM ANIMAL CARE WORKER 06/14/2024 4:25 PM ANIMAL CARE WORKER us Arash Zazueta Jr., MD LAB POCT ORDERABLES - DEVICE Final Result [facility] ([place]) 1 [facility] [place] [address] * eGFR (06/14/2024 12:14 PM ANIMAL CARE WORKER) eGFR 61 >=60 mL/min/1. 73 m2 Comment: [...] reviewed 2021. Blood 06/14/2024 12:1 4 PM ANIMAL CARE WORKER 06/14/2024 12:16 PM ANIMAL CARE WORKER us [facility] LAB BLOOD ORDERABLES Final Resu lt [facility] ([place]) 1 [facility] [place] [address] * Differential, auto (06/14/2024 12:14 PM ANIMAL CARE WORKER) Neutrophil abs 6.3 1.5 - 6.5 K/cumm [...] revised on 2017. Monocyte pct 7.8 % [facility] ([place]) Comment: Interpretive Data Percent cell count reference [...] on 2017. Blood 06/14/2024 12:1 4 PM ANIMAL CARE WORKER 06/14/2024 12:16 PM ANIMAL CARE WORKER us [facility] LAB BLOOD ORDERABLES Final Resu lt [facility] ([place]) 1 [facility] Department of Laboratories [place], [place] [id number] * (ABNORMAL) CBC with auto differential (06/14/2024 12:14 PM ANIMAL CARE WORKER) WBC 9.3 3.8 - 9.9 K/cumm Hgb [...] [facility] ([place]) Blood 06/14/2024 12:1 4 PM ANIMAL CARE WORKER 06/14/2024 12:16 PM ANIMAL CARE WORKER us [facility] LAB BLOOD ORDERABLES Final Resu lt [facility] ([place]) 1 [facility] [place] [address] * (ABNORMAL) Comprehensive metabolic panel (06/14/2024 12:14 PM ANIMAL CARE WORKER) Sodium 135 135 - 145 mmol/L Potassium, [...] [facility] ([place]) Blood 06/14/2024 12:1 4 PM ANIMAL CARE WORKER 06/14/2024 12:16 PM ANIMAL CARE WORKER us [facility] LAB BLOOD ORDERABLES Final Resu lt [facility] ([place]) 1 [facility] [place] [address] * XR Knee Right 4+ Vw (Routine) (06/14/2024 11:21 AM ANIMAL CARE WORKER) Anatomical Region Laterality Modality Lower Extremities, Knee Right Computed Radiography 06/14/2024 11:2 9 AM ANIMAL CARE WORKER Narrative 06/14/2024 11:32 AM ANIMAL CARE WORKER EXAM DESCRIPTION: XR KNEE RIGHT 4 OR [...] Sidney Cornell M.D. KR: MARIAMA Report ID: [id number] [place] Location: [id number] Procedure Note Sidney Cornell MD - 06/14/2024 [...] Sidney Cornell M.D. KR: MARIAMA Report ID: [id number] [place] Location: [id number] us Camron Davalos MD IMG XR PROCEDURES F inal Result * (ABNORMAL) eGFR (05/13/2024 11:59 AM ANIMAL CARE WORKER) [facility] Signature eGFR 55(L) >=60 mL/min/1. 73 m2 Comment: [...] reviewed 2021. Blood 05/13/2024 11:5 9 AM ANIMAL CARE WORKER 05/13/2024 12:56 PM ANIMAL CARE WORKER us Sidney Westfall MD LAB BLOOD ORDERABLES Final Re sult [facility] [place] [address] * Differential, auto (05/13/2024 11:59 AM ANIMAL CARE WORKER) Neutrophil abs 5.2 1.5 - 6.5 K/cumm Imm gran abs 0.0 0.0 - 0.1 K/cumm [facility] Lymphocyte abs 1.8 0.8 - 3.3 K/cumm [facility] Monocyte abs 0.7 0.2 - 0.8 K/cumm [facility] Eosinophil abs 0.1 0.0 - 0.5 K/cumm [facility] Basophil abs 0.0 0.0 - 0.1 K/cumm [facility] Neutrophil pct 65.7 % [facility] Comment: Interpretive Data Percent cell count reference ranges are not reported, since discordance with absolute values may lead to misinterpretation of CBC data. Current Interpretive Data was last revised on 2017. Imm gran pct 0.4 % [facility] Comment: Interpretive Data Percent cell count reference ranges are not reported, since discordance with absolute values may lead to misinterpretation of CBC data. Current Interpretive Data was last revised on 2017. Lymphocyte pct 22.9 % [facility] Comment: Interpretive Data Percent cell count reference ranges are not reported, since discordance with absolute values may lead to misinterpretation of CBC data. Current Interpretive Data was last revised on 2017. Monocyte pct 9.0 % [facility] Comment: Interpretive Data Percent cell count reference ranges are not reported, since discordance with absolute values may lead to misinterpretation of CBC data. Current Interpretive Data was last revised on 2017. Eosinophil pct 1.6 % [facility] Comment: Interpretive Data Percent cell count reference ranges are not reported, since discordance with absolute values may lead to misinterpretation of CBC data. Current Interpretive Data was last revised on 2017. Basophil pct 0.4 % [facility] Comment: Interpretive Data Percent cell count reference ranges are not reported, since discordance with absolute values may lead to misinterpretation of CBC data. Current Interpretive Data was last revised on 2017. Blood 05/13/2024 11:5 9 AM [employer]IMAL CARE WORKER 05/13/2024 12:56 PM ANIMAL CARE WORKER us Sidney Westfall MD LAB BLOOD ORDERABLES Final Re sult [facility] Department [place] [address] * (ABNORMAL) CBC with auto differential (05/13/2024 11:59 AM ANIMAL CARE WORKER) WBC 7.9 3.8 - 9.9 K/cumm Hgb 10.5(L) 11.9 - 15.5 g/dL [facility] Hct 32.2(L) 35.6 - 45.5 % [facility] Plt 342 150 - 400 K/cumm [facility] MPV 8.9(L) 9.1 - 12.3 fL [facility] RBC 3.67(L) 3.90 - 5.20 M/cumm [facility] MCV 87.7 81.3 - 96.4 fL [facility] MCH 28.6 27.1 - 33.3 pg [facility] MCHC 32.6 32.3 - 35.7 g/dL [facility] RDW CV 13.3 11.1 - 14.9 % [facility] RDW SD 43.0 35.7 - 48.1 fL [facility] NRBC abs 0.00 0.00 - 0.01 K/cumm [facility] Blood 05/13/2024 11:5 9 AM ANIMAL CARE WORKER 05/13/2024 12:56 PM ANIMAL CARE WORKER us Sidney Westfall MD LAB BLOOD ORDERABLES Final Re sult Performing Organization Address [facility] de Phone Number [facility] [place] [employer] [place] [address] * Albumin Creatinine Ratio, Urine (05/13/2024 11:59 AM ANIMAL CARE WORKER) Albumin Ur <12.0 mg/L Comment: Interpretive Data No reference range established. Current interpretive data was last revised 2018. Creatinine Ur 25.7 mg/dL [facility] Comment: Interpretive Data No reference range established. Current interpretive data was last revised 2018. Albumin Creatinine Ratio, Ur See Comment 1 - 29 mg/g [facility] Comment:Unable to calculate Urine 05/13/2024 11:5 9 AM ANIMAL CARE WORKER 05/13/2024 12:51 PM ANIMAL CARE WORKER us Sidney Westfall MD LAB URINE ORDERABLES Final Re sult Performing Organization Address [facility] de Phone Number [facility] [place] [place] [address] * TSH (05/13/2024 11:59 AM ANIMAL CARE WORKER) Thyroid Stimulating Hormone 3.01 0.30 - 4.20 mcIUnit/mL Blood 05/13/2024 11:5 9 AM ANIMAL CARE WORKER 05/13/2024 12:56 PM ANIMAL CARE WORKER us Sidney Westfall MD LAB BLOOD ORDERABLES Final Re sult [facility] Department [place] [address] * (ABNORMAL) Comprehensive metabolic panel (05/13/2024 11:59 AM ANIMAL CARE WORKER) Sodium 137 135 - 145 mmol/L Potassium, pl 5.0(H) 3.3 - 4.9 mmol/L [facility] Chloride 102 97 - 110 mmol/L [facility] CO2 23 22 - 32 mmol/L [facility] Anion gap 12 2 - 15 mmol/L [facility] BUN 23 6 - 25 mg/dL [facility] Creatinine 1.06 0.60 - 1.10 mg/dL [facility] Glucose 136 70 - 199 mg/dL [facility] Comment: Interpretive Data Fasting glucose >/= 126 [...] 2022. Calcium 10.2 8.5 - 10.3 mg/dL [facility] Bilirubin, total 0.3 0.1 - 1.2 mg/dL [facility] Protein, pl 7.9 6.5 - 8.5 g/dL [facility] Albumin 4.6 3.5 - 5.0 g/dL [facility] Alk phos 104 40 - 130 Units/L [facility] ALT <5(L) 7 - 45 Units/L [facility] AST 25 10 - 45 Units/L [facility] Blood 05/13/2024 11:5 9 AM ANIMAL CARE WORKER 05/13/2024 12:56 PM ANIMAL CARE WORKER us Sidney Westfall MD LAB BLOOD ORDERABLES Final Re sult [facility] Department [place] [address] * POCT hemoglobin A1c (02/18/2024 12:34 PM [...] - 11/07/2023 11:13 AM CDT Performed at: [address] [place] [address] [id number] Attending Ambulatory Care: Abraham Bob PhD, Phone: [phone] us Sidney Westfall MD LAB MICROBIOLOGY - GENERAL OR DERABLES Final Result [facility] - 01 * POCT lipid panel [...] 06/09/2019 Pt reports she had granite in 2019 she says it was normal Historical Provider ENDOSCOPY PROCEDURES Jenny l Result from Last 3 Months or Most Recently Relevant to Health Maintenance Insurance MEDICARE [facility] [place] [address] MEDICARE [facility] MEDICARE [facility] MEDICARE Advance Directives For more information, please contact: [phone] * Full Code (Latest Code Status on File) Date Activated Date Inactivated Comments 06/14/2024 1:09 PM 06/17/2024 8:37 PM * Full Code Date Activated Date Inactivated Comments 04/25/2022 10:48 PM 04/27/2022 3:40 PM Care Teams Caddymaster Relationship Specialty Start Date End Date Sidney Westfall MD [id number] [address] PCP - General Internal Medicine 03/28/20
--- OUTSIDE RECORDS SUMMARY | 2024-07-29 08:13 | XMS_ITS | Data Portability ---
Author Organization [facility], Main Office Address [address] [place] [address] Care Team Providers Care Quoter Name Role Phone [facility] OTHER [facility] [place] Primary Care Provider Assessment Encounter Date Assessment Date Assessment LastModified by Organization Details LastModified Time 07/05/2024 07/05/2024 Labs (CBC, BMP) on 07/08. Not available 07/05/2024 14:22:03 07/07/2024 07/07/2024 Labs (CBC, BMP) on 07/08. Not available 07/07/2024 12:18:10 07/19/2024 07/19/2024 Pt will d/c home on 07/20 with [facility]. Not available 07/19/2024 15:31:57 Plan of Treatment Reminders Order Date Submit Date Provider Last Modified By Organization Details Last Modified Time Details Appointments None record ed. Lab None record ed. Referral None record ed. Procedures None record ed. Surgeries None record ed. Imaging None record ed. Medication Orders None record ed. Patient TargetsNo targets recorded. Patient Instructions Encounter Date Encounter Id Patient Instructions Last Modified By Organization Details Last Modified Time 06/30/2024 [id number] I spent {{ 33#}} minutes providing care to the patient today. More than 50% of that time was spent in discussing the expected course of the disease, discussing prognosis, coordinating care and counseling of the patient/family. Not available 06/30/2024 15:51:24 07/05/2024 [id number] I spent {{ 35#}} minutes providing care to the patient today. More than 50% of that time was spent in discussing the expected course of the disease, discussing prognosis, coordinating care and counseling of the patient/family. Not available 07/05/2024 14:21:04 07/07/2024 [id number] I spent {{ 35#}} minutes providing care to the patient today. More than 50% of that time was spent in discussing the expected course of the disease, discussing prognosis, coordinating care and counseling of the patient/family. Not available 07/07/2024 18:42:56 07/14/2024 [id number] I spent {{ 36#}} minutes providing care to the patient today. More than 50% of that time was spent in discussing the expected course of the disease, discussing prognosis, coordinating care and counseling of the patient/family. Not available 07/14/2024 18:59:47 07/19/2024 [id number] I spent {{ 40#}} minutes providing care to the patient today. More than 50% of that time was spent in discussing the expected course of the disease, discussing prognosis, coordinating care and counseling of the patient/family. The patient will be discharged home with home health orders of home health RN / PT / OT to evaluate and treat. The patient is homebound because of {{gait instability poor balance fall risk* respiratory difficulties cogn itive impairment disori entation severe pain wounds}} and is unable to leave home safely because {{requires use of an assistive device and assistance of another person to leave home requires considerable and taxing effort to leave home* of cognitive impairment}}. The patient requires home health nursing for instruction, observation and assessment; PT for training to restore safe independent functional ambulation in community; and OT for training to improve ability to fulfill ADLs. Please follow-up with your primary care provider within 1 week. Call your primary care provider for instructions or go to the emergency room for new or worsening symptoms. Not available 07/19/2024 15:32:27 Reason for Referral None Reported. Results Created Date Observation Date Name Description Value Unit Range Abnormal Flag Note LastModifiedBy Organization Detail LastModifiedTime Result Notes None recorded. Procedures Surgical History Date Name Laterality Status Provider Name and Address Organization Details Recorded Time lumpectomy of breast completed [facility] 06/17/2024 21:31:23 Carpal Tunnel Release completed [facility] 06/17/2024 21:31:35 procedure on foot completed [facility] 06/17/2024 21:31:51 procedure on neck completed [facility] 06/17/2024 21:32:00 Imaging Results None recorded. Procedure Notes None recorded. Medical Equipment None Reported. Medications Name Sig Start Date Stop Date Status Note LastModified by Organization Details LastModified Time acetaminoph en 325 mg tablet Take 2 tablets every 4 hours by oral route as needed. active Not Available Not Available No t Available lidocaine 4 % topical patch Apply 1 patch every day by topical route. active Not Available Not Available No t Available trazodone 50 mg tablet Take 1 tablet every day by oral route as needed. active Not Available Not Available No t Available Thera-Tabs tablet Take 1 tablet every day by oral route. active Not Available Not Available No t Available hydrocodone 5 mg-acetamin ophen 325 mg tablet Take 1 tablet every 8 hours by oral route as needed. 2024 active Not Available Not Available Not Avai lable lisinopril 20 mg tablet Take 1 tablet every day by oral route. active Not Available Not Available No t Available alprazolam 0.5 mg tablet Take 1 tablet twice a day by oral route as needed. 2024 active Not Available Not Available Not Avai lable gemfibrozil 600 mg tablet Take 1 tablet twice a day by oral route. active Not Available Not Available No t Available levothyroxi ne 50 mcg tablet Take 1 tablet every day by oral route. active Not Available Not Available No t Available metformin 1,000 mg tablet Take 1 tablet twice a day by oral route with meal(s). active Not Available Not Available No t Available albuterol sulfate HFA 90 mcg/actuati on aerosol inhaler Inhale 2 puffs every 4 hours by inhalatio n route as needed. active Not Available Not Available No t Available carbidopa 25 mg-levodopa 100 mg tablet Take 1 tablet 3 times a day by oral route. active Not Available Not Available No t Available hydrocodone 2.5 mg-acetamin ophen 325 mg tablet Take 1 tablet every 8 hours by oral route as needed. 06/20 completed Not Available Not Available Not Available Vitals Date Recorded Body height Heart rate Body temperature Respiratory rate Oxygen saturation Oxygen saturation in Arterial blood by Pulse oximetry Body mass index (BMI) Body weight Systolic blood pressure Diastolic blood pressure Provider Name and Address Organization Details Last Updated DateTime 5 170.18 cm 88 /min 98.5 [degF] 19 /min 96 % 96 % 22.7 kg/m2 78006.1 8 g 135 mm[Hg] 65 mm[Hg] [place] [address] [place], [address], [place] [facility] 5 15:45:12 Date Recorded Body height Heart rate Body temperature Respiratory rate Oxygen saturation Oxygen saturation in Arterial blood by Pulse oximetry Body mass index (BMI) Body weight Systolic blood pressure Diastolic blood pressure Provider Name and Address Organization Details Last Updated DateTime 5 170.18 cm 85 /min 97.8 [degF] 18 /min 95 % 95 % 22.6 kg/m2 43393.7 4 g 137 mm[Hg] 80 mm[Hg] [place] [address] [place], [address], [place] [facility] 14:14:25 Date Recorded Body height Heart rate Body temperature Respiratory rate Oxygen saturation Oxygen saturation in Arterial blood by Pulse oximetry Body mass index (BMI) Body weight Systolic blood pressure Diastolic blood pressure Provider Name and Address Organization Details Last Updated DateTime 5 170.18 cm 81 /min 98.2 [degF] 18 /min 96 % 96 % 22.6 kg/m2 41933.4 6 g 136 mm[Hg] 78 mm[Hg] [place] [address] [place], [address], [place] [facility] 11:58:05 Date Recorded Body height Heart rate Body temperature Respiratory rate Oxygen saturation Oxygen saturation in Arterial blood by Pulse oximetry Body mass index (BMI) Body weight Systolic blood pressure Diastolic blood pressure Provider Name and Address Organization Details Last Updated DateTime 5 170.18 cm 79 /min 97.8 [degF] 18 /min 97 % 97 % 22.5 kg/m2 98267.5 8 g 130 mm[Hg] 69 mm[Hg] [place] [address] [place], [address], [facility] 5 15:26:19 Date Recorded Body height Heart rate Body temperature Respiratory rate Oxygen saturation Oxygen saturation in Arterial blood by Pulse oximetry Body mass index (BMI) Body weight Systolic blood pressure Diastolic blood pressure Provider Name and Address Organization Details Last Updated DateTime 5 170.18 cm 93 /min 98.2 [degF] 18 /min 97 % 97 % 22.7 kg/m2 11007.6 1 g 113 mm[Hg] 71 mm[Hg] [place] [address] [place], [address], [place] - [facility] 13:59:27 Date Recorded Body height Heart rate Body temperature Respiratory rate Oxygen saturation Oxygen saturation in Arterial blood by Pulse oximetry Body mass index (BMI) Body weight Systolic blood pressure Diastolic blood pressure Provider Name and Address Organization Details Last Updated DateTime 5 170.18 cm 80 /min 97.4 [degF] 18 /min 98 % 98 % 23 kg/m2 78408.0 8 g 125 mm[Hg] 61 mm[Hg] [place] [address] [place], [address], [place] - [facility] 15:27:23 Social History Question Answer Notes LastModified by Organizat ion Details LastModified Time Tobacco Smoking Status Former Smoker Bonilla Keys [facility], [facility] 06/17/2024 21:33:01 What Is Your Level Of Alcohol Consumption? None Not On File Information not available 06/21/2024 When Did You Quit Smoking? 16+yearssin celastcigar ette Information not available 06/17/2024 How Much Tobacco Do You Smoke? No Information not available 06/17/2024 Do You Use Any Illicit Or Recreational Drugs? No Information not available 06/21/2024 Sex: Unknown Functional Status None recorded. Mental Status None recorded. Family History Relationship Description Onset Age of this Age Resolved Age Notes LastModified by Organization Details LastModified Time Father Heart disease [email or web address] Not available 05/21 21:33:53 Father Diabetes mellitus [email or web address] Not available 05/21 21:34:03 Mother Heart disease sspampinato Not available 05/21 21:33:53 Medical History Condition Response Psychiatric -- Anxiety Disorder Y Parkinson's Disease Y Diabetes Y Hyperlipidemia Y Hypertension Y Gynecological HistoryNo gynecological history recorded. Obstetrics History GPAL:G 0 P 0 0 0 0 Past Encounters Encounter ID Performer Location Encounter Start Date Encounter Closed Date Diagnosis/Indication Diagnosis SNOMED-CT Code Diagnosis ICD10 Code Diagnosis Note [id number] Lise Gay, [address] [address] [place] [address] 06/20/2024 00:01:18 07/12/2024 11:19:14 Closed fracture of right patella [id number] S82.001D continue knee immobilize r and NWB status to the RLEcontinu e prn pain medscontin ue therapiesf /u with ortho 4 weeks - Demarco Rainey NP at [facility] has not been discharged with recommenda tions for DVT prophylaxi s Diabetes mellitus 451572 09 E11.9 continue metformin - she has previously been on insulin and bydureon both of which were recently stopped due to weight loss and well controlled blood sugarsDiab etes is historical ly well controlled - patient reports her Hba1c is usually always between 5-6 - she is upset when she hears it is currently 7.3 per labs 06/18contin ue to monitor accuchecks - might temporaril y add SSI if blood sugars remain elevated Parkinson's disease 4904 9000 G20.A1 diagnosed about 4 years ago - she continues sinemet TID and denies recent dose adjustment sshe is not followed by neurology - PCP manages her symptoms Essential hypertension 60121395 I10 continue lisinopril trend pressures and adjust meds as clinically indicated Hyperlipidemia 17829903 E78.5 presumed stable - continue gemfibrozi l Generalize d anxiety disorder 34699492 F41.1 continue prn alprazolam - this is a long standing outpatient medication not ideal treatment but managed this way per PCP which patient is happy withwill monitor use of prn alprazolam as plan to continue for now and encourage further discussion s with PCP upon d/c for alternate therapy Hypothyroidism 25119122 E03.9 presumed stable - continue levothyrox inelast TSH was in April and normal Insomnia 103674347 F51.0 1 continue prn trazodone Physical deconditioning 9369964255 9102 R68.89 related to advanced age, recent fall with right patellar fracture, comorbidit iestherapi es have been initiated - discharge plan is home alone Chronic ki dney disease 162000382 N18.9 per [facility] review, creatinine baseline dating back to 2022 1.25-1.47a void nephrotoxi ns and trend labs Anemia 807323110 D64.9 likely related to chronic diseasebas kassy Hb around 10continue to trend [id number] Yulissa Simpson [place] [address] [address] [place] [address] 06/22/2024 13:06:15 07/12/2024 11:15:42 Closed fracture of right patella 1649000375 9067168 S82.001D Continue knee immobilize r and NWB status to the RLE.Contin ue PRN pain meds.Sandi nue therapies. She has been discharged with recommenda tions for DVT prophylaxi s. Diabetes mellitus 991757 09 E11.9 Patient reports her Hba1c is usually always between 5-6%. She has previously been on insulin and Bydureon, both of which were recently stopped due to weight loss and well-contr olled blood sugars. She is upset when she hears it is currently 7.3% per labs on 06/18.Stabl e. Continue Metformin. Continue to monitor accuchecks . Appear to have stabilized recently. Parkinson's disease 9227 9000 G20.A1 Diagnosed about 4 years ago. She continues Sinemet TID and denies recent dose adjustment s.She was set to establish care with neurology Dr. Espinosa but had to reschedule due to hospital/r ehab stay. Up to this point, has been managed by Dr. Westfall. Essential hypertension 14198354 I10 Stable. Continue Lisinopril .Continue to trend blood pressures, monitor lytes and renal function, and adjust meds as clinically indicated. Hyperlipidemia 10487113 E78.5 Presumed stable. Continue Gemfibrozi l. Generalize d anxiety disorder 18672627 F41.1 Stable. Continue PRN Alprazolam . This is a long standing outpatient medication . Not ideal treatment but managed this way per PCP, with which patient is happy.Cristin tor use of PRN Alprazolam as plan to continue for now and encourage further discussion s with PCP upon d/c for alternate therapy. Hypothyroidism 29278303 E03.9 Presumed stable. Continue Levothyrox ine.Last TSH was in April 2024 and normal. Insomnia 317171113 F51.0 1 Stable. Continue PRN Trazodone & Alprazolam . Chronic ki dney disease 488885756 N18.9 Per epic review. Cr baseline dating back to 2022 was 1.25-1.47. Avoid nephrotoxi ns and trend labs. Anemia 228575879 D64.9 Likely related to chronic disease.Ba seline Hgb around 10.Continu e to trend. Physical deconditioning 5050773785 9102 R68.89 Related to advanced age, recent fall with right patellar fracture, and comorbidit ies.Therap ies have been initiated - discharge plan is home alone. [id number] Yulissa Simpson NP [address] [address] 06/24/2024 10:42:43 07/12/2024 11:16:25 Closed fracture of right patella 6989144055 0221660 S82.001D Continue knee immobilize r and NWB status to the RLE.Contin ue PRN pain meds.Sandi nue therapies. She has been discharged without recommenda tions for DVT prophylaxi s.F/U with SAM Rainey on 07/13. Diabetes mellitus 020269 09 E11.9 Patient reports her Hba1c is usually always between 5-6%. She has previously been on insulin and Bydureon, both of which were recently stopped due to weight loss and well-contr olled blood sugars. She is upset when she hears it is currently 7.3% per labs on 06/18.Stabl e. Continue Metformin. Continue to monitor accuchecks . Appear to have stabilized recently. Parkinson's disease 1837 9000 G20.A1 Diagnosed about 4 years ago. She continues Sinemet TID and denies recent dose adjustment s.She was set to establish care with neurology Dr. Espinosa but had to reschedule due to hospital/r ehab stay. Up to this point, has been managed by Dr. Westfall. Essential hypertension 35282075 I10 Stable. Continue Lisinopril .Continue to trend blood pressures, monitor lytes and renal function, and adjust meds as clinically indicated. Hyperlipidemia 96214583 E78.5 Presumed stable. Continue Gemfibrozi l. Generalize d anxiety disorder 56819143 F41.1 Stable. Continue PRN Alprazolam . This is a long standing outpatient medication . Not ideal treatment but managed this way per PCP, with which patient is happy.Cristin tor use of PRN Alprazolam as plan to continue for now and encourage further discussion s with PCP upon d/c for alternate therapy. Hypothyroidism 75198207 E03.9 Presumed stable. Continue Levothyrox ine.Last TSH was in April 2024 and normal. Insomnia 989679001 F51.0 1 Stable. Continue PRN Trazodone & Alprazolam . Chronic ki dney disease 169921105 N18.9 Per epic review. Cr baseline dating back to 2022 was 1.25-1.47. Avoid nephrotoxi ns and trend labs. Anemia 210488943 D64.9 Likely related to chronic disease.Ba seline Hgb around 10.Continu e to trend. Physical deconditioning 3401726755 9102 R68.89 Related to advanced age, recent fall with right patellar fracture, and comorbidit ies.Therap ies have been initiated - discharge plan is home alone. [id number] Yulissa Simpson NP [address] [address] 06/28/2024 10:20:30 07/12/2024 11:17:09 Closed fracture of right patella 2951068542 5623367 S82.001D Continue knee immobilize r and NWB status to the RLE.Contin ue PRN pain meds.Sandi nue therapies. She has been discharged without recommenda tions for DVT prophylaxi s.F/U with SAM Rainey on 07/13. Diabetes mellitus 866991 09 E11.9 Patient reports her Hba1c is usually always between 5-6%. She has previously been on insulin and Bydureon, both of which were recently stopped due to weight loss and well-contr olled blood sugars. She is upset when she hears it is currently 7.3% per labs on 06/18.Stabl e. Continue Metformin. Continue to monitor accuchecks . Appear to have stabilized recently. Parkinson's disease 4904 9000 G20.A1 Diagnosed about 4 years ago. She continues Sinemet TID and denies recent dose adjustment s.She was set to establish care with neurology Dr. Espinosa but had to reschedule due to hospital/r ehab stay. Up to this point, has been managed by Dr. Westfall. Essential hypertension 16855998 I10 Stable. Continue Lisinopril .Continue to trend blood pressures, monitor lytes and renal function, and adjust meds as clinically indicated. Hyperlipidemia 23651634 E78.5 Presumed stable. Continue Gemfibrozi l. Generalize d anxiety disorder 30866223 F41.1 Stable. Continue PRN Alprazolam . This is a long standing outpatient medication . Not ideal treatment but managed this way per PCP, with which patient is happy.Cristin escobedo use of PRN Alprazolam as plan to continue for now and encourage further discussion s with PCP upon d/c for alternate therapy. Hypothyroidism 96038240 E03.9 Presumed stable. Continue Levothyrox ine.Last TSH was in April 2024 and normal. Insomnia 395707566 F51.0 1 Stable. Continue PRN Trazodone & Alprazolam . Chronic ki dney disease 729522731 N18.9 Per epic review. Cr baseline dating back to 2022 was 1.25-1.47. Avoid nephrotoxi ns and trend labs. Anemia 380300383 D64.9 Likely related to chronic disease.Ba seline Hgb around 10.Continu e to trend. Physical deconditioning 8509568721 9102 R68.89 Related to advanced age, recent fall with right patellar fracture, and comorbidit ies.Therap ies have been initiated - discharge plan is home alone. [id number] Yulissa Simpson NP [address] [address] [place] [address] 06/30/2024 11:33:36 07/12/2024 12:01:02 Closed fracture of right patella 8399087934 7647681 S82.001D Continue knee immobilize r and NWB status to the RLE.Contin ue PRN pain meds.Sandi nue therapies. She has been discharged without recommenda tions for DVT prophylaxi s.F/U with [employer] Demarco Rainey on 07/13. Parkinson's disease 4905 9000 G20.A1 Diagnosed about 4 years ago. She continues Sinemet TID and denies recent dose adjustment s.She was set to establish care with neurology Dr. Espinosa but had to reschedule due to hospital/r ehab stay. Up to this point, has been managed by Dr. Westfall. Essential hypertension 94433682 I10 Stable. Continue Lisinopril .Continue to trend blood pressures, monitor lytes and renal function, and adjust meds as clinically indicated. Diabetes mellitus 391920 09 E11.9 Patient reports her Hba1c is usually always between 5-6%. She has previously been on insulin and Bydureon, both of which were recently stopped due to weight loss and well-contr olled blood sugars. HgA1c recently 7.3% on 06/18.Stabl e. Continue Metformin. Continue to monitor accuchecks . Appear to have stabilized recently. Hyperlipidemia 79269954 E78.5 Presumed stable. Continue Gemfibrozi l. Generalize d anxiety disorder 10328567 F41.1 Stable. Continue PRN Alprazolam . This is a long standing outpatient medication . Not ideal treatment but managed this way per PCP, with which patient is happy.Cristin escobedo use of PRN Alprazolam as plan to continue for now and encourage further discussion s with PCP upon d/c for alternate therapy. Hypothyroidism 80629238 E03.9 Presumed stable. Continue Levothyrox ine.Last TSH was in April 2024 and normal. Insomnia 987457555 F51.0 1 Stable. Continue PRN Trazodone & Alprazolam . Chronic ki dney disease 856384345 N18.9 Per epic review. Cr baseline dating back to 2022 was 1.25-1.47. Avoid nephrotoxi ns and trend labs. Anemia 775814728 D64.9 Likely related to chronic disease.Ba seline Hgb around 10.Continu e to trend. Physical deconditioning 4575213656 9102 R68.89 Related to advanced age, recent fall with right patellar fracture, and comorbidit ies.Therap ies have been initiated - discharge plan is home alone. [id number] Yulissa Burnley, [employer] [address] [address] [place] [address] 07/05/2024 09:27:46 07/12/2024 11:17:50 Closed fracture of right patella 0557194256 4526697 S82.001D Continue knee immobilize r and NWB status to the RLE.Contin ue PRN pain meds.Sandi nue therapies. She has been discharged without recommenda tions for DVT prophylaxi s.F/U with SAM Rainey on 07/13. Essential hypertension 62607999 I10 Stable. Continue Lisinopril .Continue to trend blood pressures, monitor lytes and renal function, and adjust meds as clinically indicated. Parkinson's disease 4904 9000 G20.A1 Diagnosed about 4 years ago. She continues Sinemet TID and denies recent dose adjustment s.She was set to establish care with neurology Dr. Espinosa but had to reschedule due to hospital/r ehab stay. Up to this point, has been managed by Dr. Westfall. Diabetes mellitus 596488 09 E11.9 Patient reports her Hba1c is usually always between 5-6%. She has previously been on insulin and Bydureon, both of which were recently stopped due to weight loss and well-contr olled blood sugars. HgA1c recently 7.3% on 06/18.Stabl e. Continue Metformin. Continue to monitor accuchecks . Appear to have stabilized recently. Chronic ki dney disease 607801640 N18.31 Per epic review. Cr baseline dating back to 2022 was 1.25-1.47. Avoid nephrotoxi ns and trend labs. Generalize d anxiety disorder 41567753 F41.1 Stable. Continue PRN Alprazolam . This is a long standing outpatient medication . Not ideal treatment but managed this way per PCP, with which patient is happy.Cristin escobedo use of PRN Alprazolam as plan to continue for now and encourage further discussion s with PCP upon d/c for alternate therapy. Hypothyroidism 65020750 E03.9 Presumed stable. Continue Levothyrox ine.Last TSH was in April 2024 and normal. Hyperlipidemia 92432079 E78.5 Presumed stable. Continue Gemfibrozi l. Anemia 503663378 D64.9 Likely related to chronic disease.Ba seline Hgb around 10.Continu e to trend. Insomnia 981596991 F51.0 1 Stable. Continue PRN Trazodone & Alprazolam . Physical deconditioning 4840066828 9102 R68.89 Related to advanced age, recent fall with right patellar fracture, and comorbidit ies.Therap ies have been initiated - discharge plan is home alone. [id number] Yulissa Simpson NP [address] [address] 07/07/2024 10:42:10 07/12/2024 11:18:30 Closed fracture of right patella 5338091487 5358166 S82.001D Continue knee immobilize r and NWB status to the RLE.Contin ue PRN pain meds.Sandi nue therapies. She has been discharged without recommenda tions for DVT prophylaxi s.F/U with SAM Rainey on 07/13. Essential hypertension [id number] I10 Stable. Continue Lisinopril .Continue to trend blood pressures, monitor lytes and renal function, and adjust meds as clinically indicated. Diabetes mellitus 438365 09 E11.9 Patient reports her Hba1c is usually always between 5-6%. She has previously been on insulin and Bydureon, both of which were recently stopped due to weight loss and well-contr olled blood sugars. HgA1c recently 7.3% on 06/18.Stabl e. Continue Metformin. Continue to monitor accuchecks . Appear to have stabilized recently. Parkinson's disease 4904 9000 G20.A1 Diagnosed about 4 years ago. She continues Sinemet TID and denies recent dose adjustment s.She was set to establish care with neurology Dr. Espinosa but had to reschedule due to hospital/r ehab stay. Up to this point, has been managed by Dr. Westfall. Chronic ki dney disease [id number] N18.31 Per epic review. Cr baseline dating back to 2022 was 1.25-1.47. Avoid nephrotoxi ns and trend labs. Hypothyroidism 89642488 E03.9 Presumed stable. Continue Levothyrox ine.Last TSH was in April 2024 and normal. Generalize d anxiety disorder 14206525 F41.1 Stable. Continue PRN Alprazolam . This is a long standing outpatient medication . Not ideal treatment but managed this way per PCP, with which patient is happy.Cristin escobedo use of PRN Alprazolam as plan to continue for now and encourage further discussion s with PCP upon d/c for alternate therapy. Hyperlipidemia 32473031 E78.5 Presumed stable. Continue Gemfibrozi l. Anemia 194440795 D64.9 Likely related to chronic disease.Ba seline Hgb around 10.Continu e to trend. Insomnia 581916713 F51.0 1 Stable. Continue PRN Trazodone & Alprazolam . Physical deconditioning [id number] 9102 R68.89 Related to advanced age, recent fall with right patellar fracture, and comorbidit ies.Therap ies have been initiated - discharge plan is home alone. [id number] Yulissa Simpson NP [address] [address] 07/14/2024 13:41:00 07/26/2024 22:26:40 Closed fracture of right patella [id number] S82.001D Initially discharged with orders for knee immobilize r at all times and NWB status to the RLE.Contin ue PRN APAP & Floyd.Cont inue therapies. She has been discharged without recommenda tions for DVT prophylaxi s.F/U with SAM Rainey on 07/13 with WB advanced to WBAT. To continue knee immobilize r when ambulating /transferr ing, but otherwise can remove. Will f/u again in 4 weeks. Essential hypertension 25703075 I10 Stable. Continue Lisinopril .Continue to trend blood pressures, monitor lytes and renal function, and adjust meds as clinically indicated. Chronic ki dney disease 623335819 N18.31 Per epic review. Cr baseline dating back to 2022 was 1.25-1.47. Avoid nephrotoxi ns and trend labs. Diabetes mellitus 234011 09 E11.9 Patient reports her Hba1c is usually always between 5-6%. She has previously been on insulin and Bydureon, both of which were recently stopped due to weight loss and well-contr olled blood sugars. HgA1c recently 7.3% on 06/18.Stabl e. Continue Metformin. Continue to monitor accuchecks . Appear to have stabilized recently. Parkinson's disease 4904 9000 G20.A1 Diagnosed about 4 years ago. She continues Sinemet TID and denies recent dose adjustment s.She was set to establish care with neurology Dr. Espinosa but had to reschedule due to hospital/r ehab stay. Up to this point, has been managed by Dr. Westfall. Anemia 910622287 D64.9 Likely related to chronic disease.Ba seline Hgb around 10.Continu e to trend. Hypothyroidism 11608849 E03.9 Presumed stable. Continue Levothyrox ine.Last TSH was in April 2024 and normal. Generalize d anxiety disorder 99823098 F41.1 Stable. Continue PRN Alprazolam . This is a long standing outpatient medication . Not ideal treatment but managed this way per PCP, with which patient is happy.Cristin escobedo use of PRN Alprazolam as plan to continue for now and encourage further discussion s with PCP upon d/c for alternate therapy. Hyperlipidemia 95553102 E78.5 Presumed stable. Continue Gemfibrozi l. Insomnia 943941493 F51.0 1 Stable. Continue PRN Trazodone & Alprazolam . Physical deconditioning 7950608188 9102 R68.89 Related to advanced age, recent fall with right patellar fracture, and comorbidit ies.Therap ies have been initiated - discharge plan is home alone. [id number] Yulissa Simpson NP [address] [address] 07/19/2024 13:36:17 07/26/2024 22:27:31 Closed fracture of right patella [id number] 0381869 S82.001D Initially discharged with orders for knee immobilize r at all times and NWB status to the RLE.Contin ue PRN APAP & Floyd.Cont inue therapies. She has been discharged without recommenda tions for DVT prophylaxi s.F/U with SAM Rainey on 07/13 with WB advanced to WBAT. To continue knee immobilize r when ambulating /transferr ing, but otherwise can remove. Will f/u again in 4 weeks. Essential hypertension 85602536 I10 Stable. Continue Lisinopril . Chronic ki dney disease 464179524 N18.31 Per epic review. Cr baseline dating back to 2022 was 1.25-1.47. Avoid nephrotoxi ns and trend labs. Diabetes mellitus 358742 09 E11.9 Patient reports her Hba1c is usually always between 5-6%. She has previously been on insulin and Bydureon, both of which were recently stopped due to weight loss and well-contr olled blood sugars. HgA1c recently 7.3% on 06/18.Stabl e. Continue Metformin. Continue to monitor accuchecks . Appear to have stabilized recently. Parkinson's disease 4904 9000 G20.A1 Diagnosed about 4 years ago. She continues Sinemet TID and denies recent dose adjustment s.She was set to establish care with neurology Dr. Espinosa but had to reschedule due to hospital/r ehab stay. Up to this point, has been managed by Dr. Westfall. Anemia 740664568 D64.9 Likely related to chronic disease.Ba seline Hgb around 10.Continu e to trend. Hypothyroidism 02099555 E03.9 Presumed stable. Continue Levothyrox ine.Last TSH was in April 2024 and normal. Hyperlipidemia 05608355 E78.5 Presumed stable. Continue Gemfibrozi l. Generalize d anxiety disorder 35218413 F41.1 Stable. Continue PRN Alprazolam . This is a long standing outpatient medication . Not ideal treatment but managed this way per PCP, with which patient is happy.Cristin escobedo use of PRN Alprazolam as plan to continue for now and encourage further discussion s with PCP upon d/c for alternate therapy. Insomnia 600520859 F51.0 1 Stable. Continue PRN Trazodone & Alprazolam . Health Concerns Section Related Observation LastModified by Organization Detai ls LastModified Time None Recorded Concern Status LastModified by Organization Details LastModified Time None Recorded Advance Directives Directive None Recorded Payers Encounter Date Sequence Insurance Name Policy Number Policy Srinivasan Covered Member ID Srinivasan Member ID Guarantor Name 06/30/2024 2 NEETA () Katerina Hoangox [id number] Katerina Jones 06/30/2024 1 [place] Katerina Jones [id number] Katerina Jones 07/05/2024 2 () Katerina Hoangox [id number] Katerina Hoangox 07/05/2024 1 [place] Katerina Flores Jaycox [id number] Katerina Flores Jaycox 07/07/2024 2 () Katerina M Jaycox [id number] Katerina M Jaycox 07/07/2024 1 [place] Katerina Flores Jaycox [id number] Katerina M Jaycox 07/14/2024 2 () Katerina M Jaycox [id number] Katerina M Jaycox 07/14/2024 1 [place] Katerina Flores Jaycox [id number] Katerina M Jaycox 07/19/2024 2 () Katerina M Jaycox [id number] Katerina M Jaycox 07/19/2024 1 [place] Katerina Flores Jaycox [id number] Katerina Mark Jaycox Notes Date Note Type Note Provider Name and Address Organization Details Recorded Time 06/30/19 25 text/ht ml F/U fall with right closed patellar fracture with large knee joint effusion, Parkinson's,---06/19/24 patient is lying in bed this evening. She is pleasant and a good historian. She reports pain control is acceptable - nursing called last evening requesting norco be increased as it was only ordered once daily on hospital discharge. It has been changed to every 8 hours as needed. She remains NWB to the E. She denies new complaints or concerns. She has had BMs over the recent days. No nursing concerns. The patient lives in a home in [place] with her beloved dog - her neighbor is currently watching the dog. She is MOD IND with mobility and basic ADLs - drives, maintains her home.---06/22/24Katerina is seated in her wheelchair in her room, overall she is doing well although she expresses frustration with how long she will be at the facility. We discuss the normal progression of the healing of a fracture given that she is nonweightbearing and lives home by herself. She reports that she s not concerned with her Parkinson s symptoms at present and that her tremors appear to be well controlled overall. She tells me that she was actually set to establish with a new neurologist, Dr. Espinosa today but had to cancel this appointment. Up to this point, her primary care doctor Dr. Westfall has been managing her Parkinson s. She will reschedule with Dr. Espinosa upon discharge from this facility. VSS. Staff is without concerns.---06/24/24Katerina is seated in her recliner in her room, a good historian, without concerns to report today. She feels she is making good but slow progress with therapy. VSS. Staff is without concerns today. Per therapy notes: Patient hopped 10 ft with a FWW, requiring Keysha. Cueing for AD manipulation and bearing weight through UE's. Patient performed sit to stand transfers requiring CGA. ---06/28/24Katerina is resting in bed, a good historian, without pain or concerns to report today. VSS. Staff is without concerns today. Per therapy notes: Bed Mobility = Min (A);... Transfers = Mod (A); Assistive Device During Transfers = Two-wheeled walker . Gait Level Surfaces = Mod (A); Distance Level Surfaces = 5 feet ---06/30/24Katerina is doing well today, without concerns and reports continued slow but steady progress with therapy. VSS. Staff is without concerns today. Per therapy notes: sit/stand Supervision . Standing at FWW NWB RLE with tolerance up to 4 minutes ... Gait Level Surfaces = Min (A); Distance Level Surfaces = 15 feet; Assistive Device = Two-wheeled walk[place] [address] [place], [address], [facility] 06/30/2024 15:51:57 07/05/19 25 text/ht ml F/U fall with right closed patellar fracture with large knee joint effusion, Parkinson's,---06/19/24 patient is lying in bed this evening. She is pleasant and a good historian. She reports pain control is acceptable - nursing called last evening requesting norco be increased as it was only ordered once daily on hospital discharge. It has been changed to every 8 hours as needed. She remains NWB to the RLE. She denies new complaints or concerns. She has had BMs over the recent days. No nursing concerns. The patient lives in a home in [place] with her beloved dog - her neighbor is currently watching the dog. She is MOD IND with mobility and basic ADLs - drives, maintains her home.---06/22/24Katerina is seated in her wheelchair in her room, overall she is doing well although she expresses frustration with how long she will be at the facility. We discuss the normal progression of the healing of a fracture given that she is nonweightbearing and lives home by herself. She reports that she s not concerned with her Parkinson s symptoms at present and that her tremors appear to be well controlled overall. She tells me that she was actually set to establish with a new neurologist, Dr. Espinosa today but had to cancel this appointment. Up to this point, her primary care doctor Dr. Westfall has been managing her Parkinson s. She will reschedule with Dr. Espinosa upon discharge from this facility. VSS. Staff is without concerns.---06/24/24Katerina is seated in her recliner in her room, a good historian, without concerns to report today. She feels she is making good but slow progress with therapy. VSS. Staff is without concerns today. Per therapy notes: Patient hopped 10 ft with a FWW, requiring Keysha. Cueing for AD manipulation and bearing weight through UE's. Patient performed sit to stand transfers requiring CGA. ---06/28/24Katerina is resting in bed, a good historian, without pain or concerns to report today. VSS. Staff is without concerns today. Per therapy notes: Bed Mobility = Min (A);... Transfers = Mod (A); Assistive Device During Transfers = Two-wheeled walker . Gait Level Surfaces = Mod (A); Distance Level Surfaces = 5 feet ---06/30/24Katerina is doing well today, without concerns and reports continued slow but steady progress with therapy. VSS. Staff is without concerns today. Per therapy notes: sit/stand Supervision . Standing at FWW NWB RLE with tolerance up to 4 minutes ... Gait Level Surfaces = Min (A); Distance Level Surfaces = 15 feet; Assistive Device = Two-wheeled walker ---07/05/24Katerina is resting in her recliner in her room. She is a good historian, denies pain or concerns today. She is looking forward to her ortho appt next week in the hopes that her WB will be advanced. VSS. Staff is without concerns [place] [address] [address] [facility], [place], [address], [facility] 07/05/2024 14:22:07 07/07/19 25 text/ht ml F/U fall with right closed patellar fracture with large knee joint effusion, Parkinson's,---06/19/24 patient is lying in bed this evening. She is pleasant and a good historian. She reports pain control is acceptable - nursing called last evening requesting norco be increased as it was only ordered once daily on hospital discharge. It has been changed to every 8 hours as needed. She remains NWB to the RLE. She denies new complaints or concerns. She has had BMs over the recent days. No nursing concerns. The patient lives in a home in [place] with her beloved dog - her neighbor is currently watching the dog. She is MOD IND with mobility and basic ADLs - drives, maintains her home.---06/22/24Katerina is seated in her wheelchair in her room, overall she is doing well although she expresses frustration with how long she will be at the facility. We discuss the normal progression of the healing of a fracture given that she is nonweightbearing and lives home by herself. She reports that she s not concerned with her Parkinson s symptoms at present and that her tremors appear to be well controlled overall. She tells me that she was actually set to establish with a new neurologist, Dr. Espinosa today but had to cancel this appointment. Up to this point, her primary care doctor Dr. Westfall has been managing her Parkinson s. She will reschedule with Dr. Espinosa upon discharge from this facility. VSS. Staff is without concerns.---06/24/24Katerina is seated in her recliner in her room, a good historian, without concerns to report today. She feels she is making good but slow progress with therapy. VSS. Staff is without concerns today. Per therapy notes: Patient hopped 10 ft with a FWW, requiring Keysha. Cueing for AD manipulation and bearing weight through UE's. Patient performed sit to stand transfers requiring CGA. ---06/28/24Katerina is resting in bed, a good historian, without pain or concerns to report today. VSS. Staff is without concerns today. Per therapy notes: Bed Mobility = Min (A);... Transfers = Mod (A); Assistive Device During Transfers = Two-wheeled walker . Gait Level Surfaces = Mod (A); Distance Level Surfaces = 5 feet ---06/30/24Katerina is doing well today, without concerns and reports continued slow but steady progress with therapy. VSS. Staff is without concerns today. Per therapy notes: sit/stand Supervision . Standing at FWW NWB RLE with tolerance up to 4 minutes ... Gait Level Surfaces = Min (A); Distance Level Surfaces = 15 feet; Assistive Device = Two-wheeled walker ---07/05/24Katerina is resting in her recliner in her room. She is a good historian, denies pain or concerns today. She is looking forward to her ortho appt next week in the hopes that her WB will be advanced. VSS. Staff is without concerns today.---07/07/24Katerina is resting in her recliner in her room, doing well, without concerns or pain today. She continues to do well with therapy despite her WB limitations. VSS. Staff is without concerns today. Per 07/06 therapy notes: Patient ambulated 10 ft on level surfaces with a FWW, requiring CGA. Patient ambulated through hopping due to NWB status. Patient performed sit to stand and pivot transfers requiring CGA for safety, sequencing and hand placement. [place] [address] [facility], [place], [address], [place] [facility] 07/07/2024 18:43:08 07/14/19 25 text/ht ml F/U fall with right closed patellar fracture with large knee joint effusion, Parkinson's, and chronic medical conditions.---06/19/24 patient is lying in bed this evening. She is pleasant and a good historian. She reports pain control is acceptable - nursing called last evening requesting norco be increased as it was only ordered once daily on hospital discharge. It has been changed to every 8 hours as needed. She remains NWB to the RLE. She denies new complaints or concerns. She has had BMs over the recent days. No nursing concerns. The patient lives in a home in [place] with her beloved dog - her neighbor is currently watching the dog. She is MOD IND with mobility and basic ADLs - drives, maintains her home.---06/22/24Katerina is seated in her wheelchair in her room, overall she is doing well although she expresses frustration with how long she will be at the facility. We discuss the normal progression of the healing of a fracture given that she is nonweightbearing and lives home by herself. She reports that she s not concerned with her Parkinson s symptoms at present and that her tremors appear to be well controlled overall. She tells me that she was actually set to establish with a new neurologist, Dr. Espinosa today but had to cancel this appointment. Up to this point, her primary care doctor Dr. Westfall has been managing her Parkinson s. She will reschedule with Dr. Espinosa upon discharge from this facility. VSS. Staff is without concerns.---06/24/24Katerina is seated in her recliner in her room, a good historian, without concerns to report today. She feels she is making good but slow progress with therapy. VSS. Staff is without concerns today. Per therapy notes: Patient hopped 10 ft with a FWW, requiring Keysha. Cueing for AD manipulation and bearing weight through UE's. Patient performed sit to stand transfers requiring CGA. ---06/28/24Katerina is resting in bed, a good historian, without pain or concerns to report today. VSS. Staff is without concerns today. Per therapy notes: Bed Mobility = Min (A);... Transfers = Mod (A); Assistive Device During Transfers = Two-wheeled walker . Gait Level Surfaces = Mod (A); Distance Level Surfaces = 5 feet ---06/30/24Katerina is doing well today, without concerns and reports continued slow but steady progress with therapy. VSS. Staff is without concerns today. Per therapy notes: sit/stand Supervision . Standing at FWW NWB RLE with tolerance up to 4 minutes ... Gait Level Surfaces = Min (A); Distance Level Surfaces = 15 feet; Assistive Device = Two-wheeled walker ---07/05/24Katerina is resting in her recliner in her room. She is a good historian, denies pain or concerns today. She is looking forward to her ortho appt next week in the hopes that her WB will be advanced. VSS. Staff is without concerns today.---07/07/24Katerina is resting in her recliner in her room, doing well, without concerns or pain today. She continues to do well with therapy despite her WB limitations. VSS. Staff is without concerns today. Per 07/06 therapy notes: Patient ambulated 10 ft on level surfaces with a FWW, requiring CGA. Patient ambulated through hopping due to NWB status. Patient performed sit to stand and pivot transfers requiring CGA for safety, sequencing and hand placement. ---07/14/24Katerina is doing well today, happy to report that she saw ortho yesterday and was released to WBAT with knee immobilizer. She will f/u again in 4 weeks. She remove immobilizer when she is not ambulating. She is without concerns or pain today and is looking forward to working with therapy to progress to home. VSS. Staff is without concerns today. Per therapy notes from today: Patient ambulated 80 ft on level surfaces with a FWW, requiring CGA. Patient requires cueing for full WB on R LE. Sukhdevt requires cueing for heel/toe strike[place] [address] [place], [address], [place] [facility] 07/14/2024 18:59:58 07/20/19 25 text/ht ml 74 y.o. female with a past medical history of anxiety, hyperlipidemia, hypertension, diabetes mellitus, Parkinson's disease admitted to [facility] for post acute rehab subsequent to an inpatient stay at [facility] 06/14-06/17/2024 related to a fall resulting in right knee pain and a closed patellar fracture. She was going down steps on her front porch carrying multiple items 06/13 and lost her footing causing her to fall face forward twisting her right knee as she went down. She had significant pain and swelling but was still able to walk and weight bear. Her pain and swelling progressed overnight 06/13 leading to her ER presentation 06/14. Initial imaging was c/w a right patella fracture. She was admitted to the hospitalist service with ortho consultation. Per discharge summary: Closed sleeve fracture of right patella, initial encounterRight knee x-ray showed mildly displaced fracture involving the lateral aspect of the right patella. Large knee joint effusion and anterior soft tissue swelling. Ortho consulted in the ED and managed non operatively. Recommend patient should be protected weight-bearing with assistance and continue with knee immobilizer. Floyd q.4 hours p.r.n.PT/OT both recommended [facility] facility. Placement was pending until 06/17 where she was accepted to [facility]. Ortho recommended to follow up in 4 weeks and to continue using the immobilizer. Patient was discharged with Floyd p.r.n.. Patient was stable for discharge and discharged to SNF.Type 2 diabetes mellitusHyperlipidemiaHistory of diabetes on home metformin 1 g b.i.d., gemfibrozil 600 mg b.i.d..Last A1c on 03/11 at 5.5 and well-controlled. Started her on sliding scale insulin instead of home medication. Hypoglycemia protocol in place. Continued to monitor blood glucose. Blood sugars have been stable on adequate during this time.Essential hypertensionHistory of hypertension on lisinopril 20 mg daily. We will continue and monitor vitals. Vitals reviewed on 06/17 and stable.AnxietyHistory of anxiety on Xanax 0.5 mg tablet b.i.d. as needed. Trazodone as well for sleep. Continued during hospitalization. Did not use Xanax p.r.n. during this hospitalization.Parkinson's diseaseTremorHistory of Parkinson's disease on home medication of carbidopa levodopa 25-100 t.i.d. continued during this hospitalization.HypothyroidismHi story of hypothyroidism on levothyroxine 50 mcg daily. Continue during hospitalization.Chronic anemiaHistory of chronic anemia with hemoglobin around 10. Hemoglobin reviewed on 06/17 and 9.8. We will continue to monitor during this time.CBC q.48h. New medications: NorcoDiscontinued medications: NONEDose adjusted medications: NONE The patient lives in a home in [place] with her beloved dog - her neighbor is currently watching the [employer] Sidney WestfallDarrel status is fullAlternate contact is her son, Zeus who lives in [place]---06/19/24 patient is lying in bed this evening. She is pleasant and a good historian. She reports pain control is acceptable - nursing called last evening requesting norco be increased as it was only ordered once daily on hospital discharge. It has been changed to every 8 hours as needed. She remains NWB to the RLE. She denies new complaints or concerns. She has had BMs over the recent days. No nursing concerns. The patient lives in a home in [place] with her beloved dog - her neighbor is currently watching the dog. She is MOD IND with mobility and basic ADLs - drives, maintains her home.---06/22/24Katerina is seated in her wheelchair in her room, overall she is doing well although she expresses frustration with how long she will be at the facility. We discuss the normal progression of the healing of a fracture given that she is nonweightbearing and lives home by herself. She reports that she s not concerned with her Parkinson s symptoms at present and that her tremors appear to be well controlled overall. She tells me that she was actually set to establish with a new neurologist, Dr. Espinosa today but had to cancel this appointment. Up to this point, her primary care doctor Dr. Westfall has been managing her Parkinson s. She will reschedule with Dr. Espinosa upon discharge from this facility. VSS. Staff is without concerns.---06/24/24Katerina is seated in her recliner in her room, a good historian, without concerns to report today. She feels she is making good but slow progress with therapy. VSS. Staff is without concerns today. Per therapy notes: Patient hopped 10 ft with a FWW, requiring Keysha. Cueing for AD manipulation and bearing weight through UE's. Patient performed sit to stand transfers requiring CGA. ---06/28/24Katerina is resting in bed, a good historian, without pain or concerns to report today. VSS. Staff is without concerns today. Per therapy notes: Bed Mobility = Min (A);... Transfers = Mod (A); Assistive Device During Transfers = Two-wheeled walker . Gait Level Surfaces = Mod (A); Distance Level Surfaces = 5 feet ---06/30/24Katerina is doing well today, without concerns and reports continued slow but steady progress with therapy. VSS. Staff is without concerns today. Per therapy notes: sit/stand Supervision . Standing at FWW NWB RLE with tolerance up to 4 minutes ... Gait Level Surfaces = Min (A); Distance Level Surfaces = 15 feet; Assistive Device = Two-wheeled walker ---07/05/24Katerina is resting in her recliner in her room. She is a good historian, denies pain or concerns today. She is looking forward to her ortho appt next week in the hopes that her WB will be advanced. VSS. Staff is without concerns today.---07/07/24Katerina is resting in her recliner in her room, doing well, without concerns or pain today. She continues to do well with therapy despite her WB limitations. VSS. Staff is without concerns today. Per 07/06 therapy notes: Patient ambulated 10 ft on level surfaces with a FWW, requiring CGA. Patient ambulated through hopping due to NWB status. Patient performed sit to stand and pivot transfers requiring CGA for safety, sequencing and hand placement. ---07/14/24Katerina is doing well today, happy to report that she saw ortho yesterday and was released to [facility] with knee immobilizer. She will f/u again in 4 weeks. She remove immobilizer when she is not ambulating. She is without concerns or pain today and is looking forward to working with therapy to progress to home. VSS. Staff is without concerns today. Per therapy notes from today: Patient ambulated 80 ft on level surfaces with a FWW, requiring CGA. Patient requires cueing for full WB on R LE. Gladistent requires cueing for heel/toe strike. ---07/19/24Katerina is resting in her recliner, a good historian, without concerns regarding her upcoming discharge. She does not need medication prescriptions sent and we discuss that if she should run low on her PRN Floyd, she can contact her orthopedic doctor for a refill. She is looking forward to being home with her dog. VSS. Staff is without concerns today. Per therapy notes on 07/16: Patient ambulated 120 ft on level surfaces with a FWW, requiring CGA-SBA. Pt put on walk to dine program with nursing staff. Pt SBA-SUPV assist with transfers. Katerina will d/c home on 07/20 with [facility] [address] [facility], [place], [address], [facility] - [facility] 07/20/2024 08:58:44 OBGyn Episode No OBEpisode recorded.
--- OUTSIDE RECORDS SUMMARY | 2024-07-29 08:13 | XMS_ITS | Continuity of Care Document ---
Author Name Auto Generated, Auto Generated Organization [facility] Support Name Relationship Address Phone Zeus Jones Son Unknown Unavailable Katerina Jones Financial Responsible [employer] [phone] [place] [address] Katerina Jones Self [address] [place] [address] Summary Purpose Consult/Referral Allergies, Adverse Reactions, Alerts Type Description/Agent Code Date Allergy Active Date Allergy Inactivated Date of Last Reaction Adverse Reactions Severity Status Comments Source of Information [employer] No Known Allergies Active Patient History Medications No Known Medications Conditions/Problems Problem/Diagnosis Awareness of Diagnosis Code (ICD-10) Onset Date (Start Date) Resolution Date (End Date) Status Source Comments GENERALIZED ANXIETY DISORDER F41.1 025 Active DO Lise Martinez TYPE 2 DIABETES MELLITUS WITH DIABETIC CHRONIC KIDNEY DISEASE E11.22 025 Active DO Lise Martinez ANXIETY DISORDER, UNSPECIFIED F41.9 025 06/24/2024 Resolved DO Lise Martinez HYPOTHYROIDISM, UNSPECIFIED E03.9 025 Active DO Lise Martinez OTHER FRACTURE OF RIGHT PATELLA, SUBSEQUENT ENCOUNTER FOR CLOSED FRACTURE WITH ROUTINE HEALING S82.091D 025 Active DO Lise Martinez EFFUSION, RIGHT KNEE M25.461 025 Active DO Lise Martinez UNILATERAL PRIMARY OSTEOARTHRITIS, RIGHT KNEE M17.11 025 Active DO Lise Martinez OTHER CHONDROCALCINOSIS, RIGHT KNEE M11.261 025 Active DO Lise Martinez UNSPECIFIED FALL, SUBSEQUENT ENCOUNTER W19.XXXD 025 Active DO Lise Martinez PERSONAL HISTORY OF NICOTINE DEPENDENCE Z87.891 025 Active DO Lise Martinez INSOMNIA, UNSPECIFIED G47.00 025 Active DO Lise Martinez INTERMEDIATE (CURRENT) USE OF ORAL HYPOGLYCEMIC DRUGS Z79.84 025 Active DO Lise Martinez INTERMEDIATE (CURRENT) USE OF OPIATE ANALGESIC Z79.891 025 DO Lise Cardenas PARKINSON'S DISEASE WITHOUT DYSKINESIA, WITH FLUCTUATIONS G20.A2 024 Active DO Lise Martinez ANEMIA, UNSPECIFIED D64.9 023 Active DO Lise Martinez HYPERTENSIVE CHRONIC KIDNEY DISEASE WITH STAGE 1 THROUGH STAGE 4 CHRONIC KIDNEY DISEASE, OR UNSPECIFIED CHRONIC KIDNEY DISEASE I12.9 023 Active DO Lise Martinez Date NOS CHRONIC KIDNEY DISEASE, UNSPECIFIED N18.9 023 Active DO Lise Martinez Date NOS TYPE 2 DIABETES MELLITUS WITHOUT COMPLICATIONS E11.9 021 06/24/2024 Resolved DO Lise Martinez HYPERLIPIDEMIA, UNSPECIFIED E78.5 021 Active DO Lise Martinez ESSENTIAL (PRIMARY) HYPERTENSION I10 021 06/24/2024 Resolved DO Lise Martinez Procedures No Known Procedures
== END 2024-07-29 07:55 | disposition home or self-care (01) ==
PROVIDERS: PCP Internal Medicine; Visit Provider Internal Medicine
DX: Z12.31 Encounter for screening mammogram for malignant neoplasm of breast (principal); R92.8 Other abnormal and inconclusive findings on diagnostic imaging of breast
CPT/HCPCS: 77063; 77067

== ENCOUNTER 2024-08-05 09:01 | Outpatient (CLI) | payer MEDICARE, OTHER, SELFPAY ==
--- NOTE | ~2024-08-05 | MMUS_ITS ---
EXAMINATION: MM diagnostic leon RT w royal, US breast RT limited HISTORY: Follow-up right breast asymmetry TECHNIQUE: Additional 3-D tomosynthesis images of the right breast were performed and synthetic 2-D i mages were generated. CAD analysis was submitted and interpreted. High resolution Limited right breas t ultrasound was performed. COMPARISON: 07/29/2024 BREAST PARENCHYMAL COMPOSITION: Dense: The breasts are heterogeneously dense, which may obscure small masses FINDINGS: MAMMOGRAPHIC FINDINGS: Persistent asymmetry superior to the nipple on the MLO view without discrete mass. No architectural d istortion. There are benign right breast calcifications. ULTRASOUND: Limited right breast ultrasound: Normal heterogeneous echotexture without focal solid or cystic mass. IMPRESSION: 1. Probable benign right breast asymmetry without sonographic correlate. 2. Recommend 6 month follow-up diagnostic right mammogram BI-RADS category 3, probably benign findings. Reviewed, dictated and finalized at location B. IMPRESSION: 1. Probable benign right breast asymmetry without sonographic correlate. 2. Recommend 6 month follow-up diagnostic right mammogram BI-RADS category 3, probably benign findings.
--- OUTSIDE RECORDS SUMMARY | 2024-08-05 09:21 | XMS_ITS | CONTINUITY OF CARE DOCUMENT ---
Author Name monroe childress Address Unknown Organization [facility] Address [address] [address] [facility] [address] [place] [address] Phone [phone] Care Team Providers Care Barrel Charrer Name Role Phone Jerome ELKINS, Karen Unavailable ELY ERICKSON MD Unavailable [phone] ELY ERICKSON MD Unavailable PROBLEMS Condition Status Date Provider Notes Chest pain active Massiel Morel [employer] PROVID[employer] Payer name Policy type / Coverage type Beacon red republican ID NEETA SANTACRUZ [id number] [place] [employer] Medicare [id number] HISTORY OF PROCEDURES Procedure Date Procedure Name Provider Procedure Notes S tatus Cardiolite, 2 units Karen Cano MD completed SPECT Images Trisha Stanford MD com pleted Stress EKG Long Ventura MD completed
--- OUTSIDE RECORDS SUMMARY | 2024-08-05 09:21 | XMS_ITS | Referral Summary ---
Author Organization [facility] Virtual Care Address [facility] [place] [address] Phone Care Team Providers Care Lounge Car Attendant Name Role Phone Sidney Westfall MD Primary Care Provider [phone] Encounters Date Type Department Care Team Description 07/31/2024 10:17 PM CDT - 07/31/2024 10:46 PM CDT Emergency [facility] Emergency Department [address] [place] [address] Fall, initial encounter (Primary Dx) Discharge Disposition: Discharge to home or self care 07/29/2024 Results Follow-Up [facility] [address] [facility] [address] [place] [address] Sidney Westfall MD Abnormal mammogram of right breast (Primary Dx) 07/29/2024 Orders Only [facility] [address] [place] [address] [address] [facility] [place] [address] Sidney Westfall MD 07/20/2024 Telephone [facility] [address] [facility] [address] [place] [address] Sidney Westfall MD home health orders 07/13/2024 7:39 AM TILE SPRAYER - 07/13/2024 11:59 PM TILE SPRAYER Hospital Encounter [facility] [address] [facility] [address] [place] [phone] Discharge Disposition: Discharge to home or self care 07/13/2024 10:15 AM TILE SPRAYER Office Visit [facility] [address] [facility] [address] [place] [phone] Demarco Rainey NP Right knee pain, unspecified chronicity (Primary Dx); Closed nondisplaced longitudinal fracture of right patella, initial encounter 07/12/2024 Telephone [facility] [address] [place], [place] [address] [place] [address] Sidney Westfall MD Scheduling Testing/Treatment 06/14/2024 11:17 AM TILE SPRAYER - 06/17/2024 4:37 PM TILE SPRAYER Hospital Encounter [facility] Surgery Care 1 [place] [address] Arash Zazueta Jr., MD Okonkwo, Kasiemobi Bernice, MD Singh, Supriya, MD Closed sleeve fracture of right patella, initial encounter (Primary Dx) Discharge Disposition: Discharge to SNF 05/13/2024 12:55 PM TILE SPRAYER Lab [facility] Advanced [facility] [address] [place] [phone] Type 2 diabetes mellitus without complication, without long-term current use of insulin (HCC); Mixed hyperlipidemia; Essential hypertension; Parkinson'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, with fluctuating manifestations (HCC); Anemia, unspecified type 05/13/[address] [facility] Scheduling [facility] [place] [address] Felipe Rivas MD Scheduling Appointments 05/13/2024 11:00 AM TILE SPRAYER Office Visit [facility] [address] [place] [address] [address] [place] [address] Sidney Westfall MD Type 2 diabetes mellitus [...] 2 diabetes mellitus without complication, unspecified whether skilled nursing insulin use (HCC) 45 Units daily inject [...] Rx Assessment & Plan (07/10/2020 10:39 AM TILE SPRAYER): A1c at target. Will continue present Rx. Check BMP and microalbumin Hyperlipidemia 07/10/2020 Assessment & Plan (02/18/2024 1:11 PM CDT): Doing well at this time Assessment & Plan (07/10/2020 10:39 AM TILE SPRAYER): Lipid elevated. Consider ezetemibe in the future. Essential hypertension 07/10/2020 Assessment & Plan (02/18/2024 1:11 PM CDT): BP at target Assessment & Plan (07/10/2020 10:39 AM TILE SPRAYER): Blood pressure at target doing well Anxiety 07/10/2020 Assessment & Plan (07/10/2020 10:39 AM TILE SPRAYER): Will increase alprazolam 2.5 b.i.d. Orthostatic hypotension Immunizations Immunization Administration Dates Next Due COVID-19 mRNA (Groopt) 0.3 m L (30 mcg) vaccine (12 [...] making you feel afraid or unsafe? Denies 07/31/2024 Comments Unknown Sex and Gender Information Value Date Recorded Sex Assigned at Not on file Legal Sex Female 12:14 AM TILE SPRAYER Gender Identity Female 11/17/2023 1:33 PM CDT Sexual Orientation Straight 11/17/2023 1: 33 PM CDT Last Filed Vital Signs Vital Sign Reading Time Taken Comments Blood Pressure 123/73 07/31/2024 8:12 PM CDT Pulse 96 07/31/2024 8:12 PM CDT Temperature 36.3 C (97.3 F) 07/31/2024 8:12 PM CDT Respiratory Rate 18 07/31/2024 8:12 PM CDT Oxygen Saturation 100% 07/31/2024 8:12 PM CDT Inhaled Oxygen Concentration - - Weight 63 kg (139 lb) 07/31/2024 8:12 PM CDT Height 170.2 cm (5' 7 ) 07/31/2024 8:12 PM CDT Body Mass Index 21.77 07/31/2024 8:12 PM CDT Plan of Treatment Not on file Procedures Procedure Name Priority Date/Time Associated Diagnosis Comments XR RIBS RIGHT W PA CHEST ED 07/31/2024 9:[address] CERVICAL SPINE WO CONTRAST ED 07/31/2024 8:[address] HEAD WO CONTRAST ED 07/31/2024 8 :56 PM CDT EGFR STAT 07/31/2024 8:21 PM CDT DIFFERENTIAL AUTO STAT 07/31/2024 8:2 1 PM CDT COMPREHENSIVE METABOLIC PANEL STAT 07/31/2024 8:21 PM CDT CBC WITH AUTO DIFFERENTIAL STAT 07/31/2024 8:21 PM CDT SCAN - RADIOLOGY/IMAGING 07/29/2024 9:05 AM CDT XR KNEE RIGHT 3 VIEWS Schedule Routine, Read Routine (OP Routine) 07/13/2024 10:34 AM TILE SPRAYER Right knee pain, unspecified chronicity POCT GLUCOSE DEVICE Routine 06/17/2024 4 :01 PM TILE SPRAYER POCT GLUCOSE DEVICE Routine 06/17/2024 11:33 AM TILE SPRAYER POCT GLUCOSE DEVICE Routine 06/17/2024 7 :32 AM TILE SPRAYER DIFFERENTIAL AUTO Routine 06/17/2024 4:2 2 AM TILE SPRAYER CBC WITH AUTO DIFFERENTIAL Routine 06/17/2024 4:22 AM TILE SPRAYER POCT GLUCOSE DEVICE Routine 06/17/2024 2 :05 AM TILE SPRAYER POCT GLUCOSE DEVICE Routine 06/16/2024 8 :43 PM TILE SPRAYER POCT GLUCOSE DEVICE Routine 06/16/2024 4 :13 PM TILE SPRAYER POCT GLUCOSE DEVICE Routine 06/16/2024 11:08 AM TILE SPRAYER EGFR Timed 06/16/2024 7:59 AM TILE SPRAYER DIFFERENTIAL AUTO Routine 06/16/2024 7:5 9 AM TILE SPRAYER CBC WITH AUTO DIFFERENTIAL Routine 06/16/2024 7:59 AM TILE SPRAYER BASIC METABOLIC PANEL Timed 06/16/2024 7:59 AM TILE SPRAYER POCT GLUCOSE DEVICE Routine 06/16/2024 7 :10 AM TILE SPRAYER POCT GLUCOSE DEVICE Routine 06/16/2024 2 :34 AM TILE SPRAYER POCT GLUCOSE DEVICE Routine 06/15/2024 7 :56 PM TILE SPRAYER POCT GLUCOSE DEVICE Routine 06/15/2024 4 :36 PM TILE SPRAYER POCT GLUCOSE DEVICE Routine 06/15/2024 11:10 AM TILE SPRAYER POCT GLUCOSE DEVICE Routine 06/15/2024 7 :34 AM TILE SPRAYER POCT GLUCOSE DEVICE Routine 06/15/2024 2 :05 AM TILE SPRAYER POCT GLUCOSE DEVICE Routine 06/14/2024 9 :01 PM TILE SPRAYER POCT GLUCOSE DEVICE Routine 06/14/2024 4 :25 PM TILE SPRAYER EGFR STAT 06/14/2024 12:14 PM TILE SPRAYER DIFFERENTIAL AUTO STAT 06/14/2024 12:14 PM TILE SPRAYER COMPREHENSIVE METABOLIC PANEL STAT 06/14/2024 12:14 PM TILE SPRAYER CBC WITH AUTO DIFFERENTIAL STAT 06/14/2024 12:14 PM TILE SPRAYER XR KNEE RIGHT 4 OR MORE VIEWS ED 06/14/2024 11:21 AM TILE SPRAYER EGFR Routine 05/13/2024 11:59 AM TILE SPRAYER Type 2 diabetes mellitus without complication, without long-term current use of insulin (HCC) Mixed hyperlipidemia Essential hypertension Parkinson'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, with fluctuating manifestations (HCC) Anemia, unspecified type DIFFERENTIAL AUTO Routine 05/13/2024 11:59 AM TILE SPRAYER Type 2 diabetes mellitus without complication, without long-term current use of insulin (HCC) Mixed hyperlipidemia Essential hypertension Parkinson'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, with fluctuating manifestations (HCC) Anemia, unspecified type COMPREHENSIVE METABOLIC PANEL Routine 05/13/2024 11:59 AM TILE SPRAYER Type 2 diabetes mellitus without complication, without long-term current use of insulin (HCC) Mixed hyperlipidemia Essential hypertension Parkinson'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, with fluctuating manifestations (HCC) Anemia, unspecified type TSH Routine 05/13/2024 11:59 AM TILE SPRAYER Type 2 diabetes mellitus without complication, without long-term current use of insulin (HCC) Mixed hyperlipidemia Essential hypertension Parkinson'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, with fluctuating manifestations (HCC) Anemia, unspecified type ALBUMIN CREATININE RATIO, URINE Routine 05/13/2024 11:59 AM TILE SPRAYER Type 2 diabetes mellitus without complication, without long-term current use of insulin (HCC) Mixed hyperlipidemia Essential hypertension Parkinson'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, with fluctuating manifestations (HCC) Anemia, unspecified type CBC WITH AUTO DIFFERENTIAL Routine 05/13/2024 11:59 AM TILE SPRAYER Type 2 diabetes mellitus without complication, without [...] 2 diabetes mellitus without complication, unspecified whether skilled nursing insulin use (HCC) Mixed hyperlipidemia Parkinson'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, with fluctuating manifestations (HCC) Anemia, unspecified type Hypothyroidism, unspecified type Essential hypertension Encounter for hepatitis C screening test for low risk patient POCT LIPID PANEL Routine 11/06/2023 9:47 AM CDT Mixed hyperlipidemia COLONOSCOPY Routine 06/09/2019 from Last 3 Months or Most Recently Relevant to Health Maintenance Results * XR Ribs Right W PA Chest 3 or More Views (07/31/2024 9:05 PM CDT) Anatomical Region Laterality Modality Rib, Chest Right Computed Radiogr aphy 07/31/2024 9:12 PM CDT Narrative 07/31/2024 9:18 PM CDT EXAM DESCRIPTION: XR RIBS RIGHT W PA CHEST REASON FOR STUDY: pain Pt alert and oriented s/p fall right nodule noted to frontal lobe no bleeding no loc TECHNIQUE: Three views of the right ribs and frontal view of the chest . COMPARISON: None FINDINGS: RIBS: No fracture or suspicious lesion identified. OTHER OSSEOUS: ACDF. CHEST: No focal airspace opacity, pleural effusion, or pneumothorax identified. Heart size normal without pulmonary edema. CHEST WALL: Unremarkable. UPPER ABDOMEN: Unremarkable. IMPRESSION: No rib fracture or other acute abnormality identified. THIS IS AN ELECTRONICALLY VERIFIED FINAL REPORT 07/31/2024 9:18 PM - Electronically signed by Camron Dunn M.D. AR: BRUNO Report ID: [id number] Reading Location: [id number] Procedure Note Camron Dunn MD - 07/31/2024 EXAM DESCRIPTION: XR RIBS RIGHT W PA CHEST REASON FOR STUDY: pain Pt alert and oriented s/p fall right nodule noted to frontal lobe nobleeding no loc TECHNIQUE: Three views of the right ribs and frontal view of the chest. COMPARISON: None FINDINGS: RIBS: No fracture or suspicious lesion identified. OTHER OSSEOUS: ACDF. CHEST: No focal airspace opacity, pleural effusion, or pneumothorax identified. Heart size normal without pulmonary edema. CHEST WALL: Unremarkable. UPPER ABDOMEN: Unremarkable. IMPRESSION: No rib fracture or other acute abnormality identified. THIS IS AN ELECTRONICALLY VERIFIED FINAL REPORT 07/31/2024 9:18 PM - Electronically signed by Camron Dunn M.D. AR: AR Report ID: [id number] Reading Location: [place] [address] us Kenneth Low MD IMG XR PROCEDURES Final Resul t * CT Cervical Spine WO Contrast (07/31/2024 8:56 PM CDT) Anatomical Region Laterality Modality Spine N/A Computed Tomogra phy 07/31/2024 9:18 PM CDT Narrative 07/31/2024 9:24 PM CDT EXAM DESCRIPTION: CT CERVICAL SPINE WO CONTRAST REASON FOR STUDY: Neck trauma (Age >= 65y) Fall today and has a hematoma to the right side forehead. Denies head or neck pain. Hx of surgery to c-spine TECHNIQUE: Axial images through the cervical spine with sagittal and coronal reformatted images. Automated exposure control was used as a dose optimization technique for this examination. COMPARISON: 04/25/2022 FINDINGS: VERTEBRAE: Vertebral bodies are normal in height and alignment. Mild multilevel disc disease and facet arthropathy. C6-7 ACDF. Facet joints and craniocervical junction are congruent. No spinal fracture identified. OTHER OSSEOUS STRUCTURES: Visualized ribs, clavicles, and scapula are intact. Visualized skull base and mandible appear normal. SOFT TISSUES: Unremarkable. INTRACRANIAL: Unremarkable. IMPRESSION: No fracture or malalignment identified. THIS IS AN ELECTRONICALLY VERIFIED FINAL REPORT 07/31/2024 9:24 PM - Electronically signed by Camron Dunn M.D. AR: AR Report ID: [id number] Reading Location: [id number] Procedure Note Camron Dunn MD - 07/31/2024 EXAM DESCRIPTION: CT CERVICAL SPINE WO CONTRAST REASON FOR STUDY: Neck trauma (Age >= 65y) Fall today and has a hematoma to the right side forehead. Denies head orneck pain. Hx of surgery to c-spine TECHNIQUE: Axial images through the cervical spine with sagittal andcoronal reformatted images. Automated exposure control was used as a doseoptimization technique for this examination. COMPARISON: 04/25/2022 FINDINGS: VERTEBRAE: Vertebral bodies are normal in height and alignment. Mild multilevel disc disease and facet arthropathy. C6-7 ACDF. Facet jointsand craniocervical junction are congruent. No spinal fracture identified. OTHER OSSEOUS STRUCTURES: Visualized ribs, clavicles, and scapula areintact. Visualized skull base and mandible appear normal. SOFT TISSUES: Unremarkable. INTRACRANIAL: Unremarkable. IMPRESSION: No fracture or malalignment identified. THIS IS AN ELECTRONICALLY VERIFIED FINAL REPORT 07/31/2024 9:24 PM - Electronically signed by Camron Dunn M.D. AR: BRUNO Report ID: [id number] Reading Location: [id number] [facility] [place] PROCEDURES Final Result * CT Head WO Contrast (07/31/2024 8:56 PM CDT) Anatomical Region Laterality Modality Head and Neck N/A Computed Tomogra phy 07/31/2024 9:10 PM CDT Narrative 07/31/2024 9:12 PM CDT EXAM DESCRIPTION: CT HEAD WO CONTRAST REASON FOR STUDY: Head trauma, minor (Age >= 65y) Fall today and has a hematoma to the right side forehead. Denies head or neck pain. Hx of surgery to c-spine TECHNIQUE: Axial images acquired through the brain without intravenous contrast. Images stored on PACS. Automated exposure control was used as a dose optimization technique for this examination. COMPARISON: 04/25/2022 FINDINGS: BRAIN: No mass, hemorrhage, or recent infarct. Normal white matter. Volume within normal limits for age. VASCULAR: No dense vessel or obvious aneurysm. EXTRA-AXIAL SPACES: No mass or fluid collection. ORBITS/GLOBES: Unremarkable. SOFT TISSUES: Small right forehead contusion. BONES/SINUSES: No fracture or lesion. Paranasal sinuses and other skullbase airspaces are clear. IMPRESSION: No fracture or intracranial injury identified. Small right forehead contusion. THIS IS AN ELECTRONICALLY VERIFIED FINAL REPORT 07/31/2024 9:12 PM - Electronically signed by Camron Dunn M.D. AR: BRUNO Report ID: [id number] Reading Location: [id number] Procedure Note Camron Dunn MD - 07/31/2024 EXAM DESCRIPTION: CT HEAD WO CONTRAST REASON FOR STUDY: Head trauma, minor (Age >= 65y) Fall today and has a hematoma to the right side forehead. Denies head orneck pain. Hx of surgery to c-spine TECHNIQUE: Axial images acquired through the brain without intravenous contrast. Images stored on PACS. Automated exposure control was used asa dose optimization technique for this examination. COMPARISON: 04/25/2022 FINDINGS: BRAIN: No mass, hemorrhage, or recent infarct. Normal white matter. Volume within normal limits for age. VASCULAR: No dense vessel or obvious aneurysm. EXTRA-AXIAL SPACES: No mass or fluid collection. ORBITS/GLOBES: Unremarkable. SOFT TISSUES: Small right forehead contusion. BONES/SINUSES: No fracture or lesion. Paranasal sinuses and otherskullbase airspaces are clear. IMPRESSION: No fracture or intracranial injury identified. Small right forehead contusion. THIS IS AN ELECTRONICALLY VERIFIED FINAL REPORT 07/31/2024 9:12 PM - Electronically signed by Camron Dunn M.D. AR: BRUNO Report ID: [id number] Reading Location: [id number] [facility] [place] PROCEDURES Final Result * (ABNORMAL) eGFR (07/31/2024 8:21 PM CDT) eGFR 57(L) >=60 mL/min/1. 73 m2 Comment: [...] interpretive data was last reviewed 2021. Blood 07/31/2024 8:21 PM CDT 07/31/2024 8:24 PM CDT us Kenneth Low MD LAB BLOOD ORDERABLES Final Re sult [facility] ([place] [address] [facility] Department [place] [address] * Differential, auto (07/31/2024 8:21 PM CDT) Neutrophil abs 3.3 1.5 - 6.5 K/cumm Imm gran abs 0.0 0.0 - 0.1 K/cumm [facility] ([place]) Lymphocyte abs 2.2 0.8 - 3.3 K/cumm [facility] ([place]) Monocyte abs 0.5 0.2 - 0.8 K/cumm [facility] ([place]) Eosinophil abs 0.2 0.0 - 0.5 K/cumm [facility] ([place]) Basophil abs 0.0 0.0 - 0.1 K/cumm [facility] ([place]) Neutrophil pct 53.4 % [facility] Comment: Interpretive [...] was last revised on 2017. Lymphocyte pct 34.9 % [facility]) Comment: Interpretive Data Percent cell count reference ranges are not reported, since discordance with absolute values may lead to misinterpretation of CBC data. Current Interpretive Data was last revised on 2017. Monocyte pct 8.4 % [facility] ([place]) Comment: Interpretive Data Percent cell count reference ranges are not reported, since discordance with absolute values may lead to misinterpretation of CBC data. Current Interpretive Data was last revised on 2017. Eosinophil pct 2.7 % [facility] ([place]) Comment: Interpretive Data Percent cell count reference ranges are not reported, since discordance with absolute values may lead to misinterpretation of CBC data. Current Interpretive Data was last revised on 2017. Basophil pct 0.3 % [facility] ([place]) Comment: Interpretive Data Percent cell count reference ranges are not reported, since discordance with absolute values may lead to misinterpretation of CBC data. Current Interpretive Data was last revised on 2017. Blood 07/31/2024 8:21 PM CDT 07/31/2024 8:24 PM CDT us Kenneth Low MD LAB BLOOD ORDERABLES Final Re sult [facility] ([place]) [address] [facility] Department of Laboratories [place], [place] [id number] * (ABNORMAL) CBC with auto differential (07/31/2024 8:21 PM CDT) WBC 6.2 3.8 - 9.9 K/cumm Hgb 10.5(L) 11.9 - 15.5 g/dL [facility] ([place]) Hct 32.0(L) 35.6 - 45.5 % [facility] ([place]) Plt 344 150 - 400 K/cumm [facility] ([place]) MPV 8.5(L) 9.1 - 12.3 fL [facility] ([place]) RBC 3.68(L) 3.90 - 5.20 M/cumm [facility] ([place]) MCV 87.0 81.3 - 96.4 fL [facility] ([place]) MCH 28.5 27.1 - 33.3 pg [facility] ([place]) MCHC 32.8 32.3 - 35.7 g/dL [facility] ([place]) RDW CV 13.3 11.1 - 14.9 % [facility]) RDW SD 42.5 35.7 - 48.1 fL [facility] ([place]) NRBC abs 0.00 0.00 - 0.01 K/cumm [facility] ([place]) Blood 07/31/2024 8:21 PM CDT 07/31/2024 8:24 PM CDT us Kenneth Low MD LAB BLOOD ORDERABLES Final Re sult [facility] ([place]) [address] [facility] Department [place] [address] * (ABNORMAL) Comprehensive metabolic panel (07/31/2024 8:21 PM CDT) Sodium 136 135 - 145 mmol/L Potassium, pl 4.7 3.3 - 4.9 mmol/L [facility]) Chloride 102 97 - 110 mmol/L [facility]) CO2 20(L) 22 - 32 mmol/L [facility]) Anion gap 15 2 - 15 mmol/L [facility] ([place]) BUN 26(H) 6 - 25 mg/dL [facility]) Creatinine 1.03 0.60 - 1.10 mg/dL [facility]) Glucose 123 70 - 199 mg/dL [facility]) [...] 10.3 mg/dL [facility]) Bilirubin, total <0.2 0.1 - 1.2 mg/dL [facility] ([place]) Protein, pl 7.8 6.5 - 8.5 g/dL [facility] ([place]) Albumin 4.5 3.5 - 5.0 g/dL [facility] ([place]) Alk phos 121 40 - 130 Units/L [facility]) ALT <5(L) 7 - 45 Units/L [facility]) AST 16 10 - 45 Units/L [facility]) Blood 07/31/2024 8:21 PM CDT 07/31/2024 8:24 PM CDT us Kenneth Low MD LAB BLOOD ORDERABLES Final Re sult [facility] ([place]) [address] [facility] Department [place] [address] * SCAN - RADIOLOGY/IMAGING (07/29/2024 9:05 AM CDT) Anatomical Region Laterality Modality Other us Sidney Westfall MD Final Result * XR Knee Right 3 View (07/13/2024 10:34 AM TILE SPRAYER) Anatomical Region Laterality Modality Lower Extremities, Knee Right Digital Radiography Narrative 07/13/2024 11:40 AM TILE SPRAYER 4 view of the knee show mild tricompartmental osteoarthritis. No dislocations noted. Minimally displaced lateral facet fracture is again viewed, no worsening displacement. Interval callus noted Demarco Rainey [employer] IMG XR PROCEDURES Final Result * POCT glucose (06/17/2024 4:01 PM TILE SPRAYER) Glucose, POC 113 70 - 199 mg/dL Blood 06/17/2024 4:01 PM TILE SPRAYER 06/17/2024 4:01 PM TILE SPRAYER Dillon Romano MD LAB POCT ORDERABLES - DEVICE Final Result [facility] 1 [facility] [place] [address] * POCT glucose (06/17/2024 11:33 AM TILE SPRAYER) Glucose, POC 177 70 - 199 mg/dL Blood 06/17/2024 11:3 3 AM TILE SPRAYER 06/17/2024 11:33 AM TILE SPRAYER Dillon Romano MD LAB POCT ORDERABLES - DEVICE Final Result Performing Organization Address [facility] Co de Phone Number ALEJANDRASAUK [facility] ([place] 1 [facility] [place] [address] * POCT glucose (06/17/2024 7:32 AM TILE SPRAYER) Glucose, POC 177 70 - 199 mg/dL Blood 06/17/2024 7:32 AM TILE SPRAYER 06/17/2024 7:32 AM TILE SPRAYER Dillon Romano MD LAB POCT ORDERABLES - DEVICE Final Result Performing Organization Address City/[facility]/ZIP Co de Phone Number ALEJANDRASAUK [facility] ([place]) 1 [facility] [place] [address] * Differential, auto (06/17/2024 4:22 AM TILE SPRAYER) Neutrophil abs 3.0 1.5 - 6.5 K/cumm [...] revised on 2017. Blood 06/17/2024 4:22 AM TILE SPRAYER 06/17/2024 4:38 AM TILE SPRAYER us Arash Zazueta Jr., MD LAB BLOOD ORDERABLE S Final Result [facility] ([place]) 1 [facility] [place] [address] * (ABNORMAL) CBC with auto differential (06/17/2024 4:22 AM TILE SPRAYER) Pathologist [facility] WBC 5.3 3.8 - 9.9 K/cumm Hgb [...] [facility]) Blood 06/17/2024 4:22 AM TILE SPRAYER 06/17/2024 4:38 AM TILE SPRAYER us Arash Zazueta Jr., MD LAB BLOOD ORDERABLE S Final Result [facility] ([place]) 1 [facility] [place] [address] * POCT glucose (06/17/2024 2:05 AM TILE SPRAYER) Glucose, POC 179 70 - 199 mg/dL Blood 06/17/2024 2:05 AM TILE SPRAYER 06/17/2024 2:05 AM TILE SPRAYER Dillon Romano MD LAB POCT ORDERABLES - DEVICE Final Result Performing Organization Address City/[facility]/ZIP Co de Phone Number [facility] ([place] 1 [facility] [place] [address] * POCT glucose (06/16/2024 8:43 PM TILE SPRAYER) Glucose, POC 191 70 - 199 mg/dL Blood 06/16/2024 8:43 PM TILE SPRAYER 06/16/2024 8:43 PM TILE SPRAYER Dillon Romano MD LAB POCT ORDERABLES - DEVICE Final Result Performing Organization Address [facility] Co de Phone Number [facility] ([place] 1 [facility] [place] [address] * POCT glucose (06/16/2024 4:13 PM TILE SPRAYER) Glucose, POC 154 70 - 199 mg/dL Blood 06/16/2024 4:13 PM TILE SPRAYER 06/16/2024 4:13 PM TILE SPRAYER Dillon oRmano MD LAB POCT ORDERABLES - DEVICE Final Result Performing Organization Address City/[facility] Co de Phone Number [facility] ([place] 1 [facility] [place] [address] * POCT glucose (06/16/2024 11:08 AM TILE SPRAYER) Glucose, POC 194 70 - 199 mg/dL Blood 06/16/2024 11:0 8 AM TILE SPRAYER 06/16/2024 11:08 AM TILE SPRAYER us Dillon Romano MD LAB POCT ORDERABLES - DEVICE Final Result Performing Organization Address City/[facility] Co de Phone Number SHAKEEL MERRITT ([place]) 1 [facility] [place] [address] * (ABNORMAL) eGFR (06/16/2024 7:59 AM TILE SPRAYER) eGFR 57(L) >=60 mL/min/1. 73 m2 Comment: [...] last reviewed 2021. Blood 06/16/2024 7:59 AM TILE SPRAYER 06/16/2024 8:45 AM TILE SPRAYER us Arash Zazueta Jr., MD LAB BLOOD ORDERABLE S Final Result SHAKEEL MERRITT ([place]) 1 [facility] Department [place] [address] * Differential, auto (06/16/2024 7:59 AM TILE SPRAYER) Neutrophil abs 3.4 1.5 - 6.5 K/cumm Imm gran abs 0.0 0.0 - 0.1 K/cumm [facility] ([place]) Lymphocyte abs 1.3 0.8 - 3.3 K/cumm [...] revised on 2017. Blood 06/16/2024 7:59 AM TILE SPRAYER 06/16/2024 8:45 AM TILE SPRAYER us Arash Zazueta Jr., MD LAB BLOOD ORDERABLE S Final Result SHAKEEL RENÉ ([place]) 1 [facility] Department [place] [address] * (ABNORMAL) CBC with auto differential (06/16/2024 7:59 AM TILE SPRAYER) [facility] WBC 5.3 3.8 - 9.9 K/cumm Hgb 10.4(L) 11.9 - 15.5 g/dL [facility] ([place]) Hct 32.4(L) 35.6 - 45.5 % [facility] ([place]) Plt 285 150 - 400 K/cumm [facility] ([place]) MPV 9.1 9.1 - 12.3 fL [facility] ([place]) RBC 3.65(L) 3.90 - 5.20 M/cumm [facility] ([place]) MCV 88.8 81.3 - 96.4 fL [facility] ([place]) MCH 28.5 27.1 - 33.3 pg [facility] ([place]) MCHC 32.1(L) 32.3 - 35.7 g/dL [facility] ([place]) RDW CV 13.2 11.1 - 14.9 % [facility] ([place]) RDW SD 43.4 35.7 - 48.1 fL [facility] ([place]) NRBC abs 0.00 0.00 - 0.01 K/cumm [facility] ([place]) Blood 06/16/2024 7:59 AM TILE SPRAYER 06/16/2024 8:45 AM TILE SPRAYER us Arash Zazueta Jr., MD LAB BLOOD ORDERABLE S Final Result [facility]EL [facility] ([place]) 1 [facility] Department [place] [address] * (ABNORMAL) Basic metabolic panel (06/16/2024 7:59 AM TILE SPRAYER) [facility] Sodium 137 135 - 145 mmol/L Potassium, pl 4.4 3.3 - 4.9 mmol/L [facility] ([place]) Chloride 102 97 - 110 mmol/L [facility] ([place]) CO2 22 22 - 32 mmol/L [facility] ([place]) Anion gap 14 2 - 15 mmol/L [facility] ([place]) BUN 22 6 - 25 mg/[facility] Creatinine 1.03 0.60 - 1.10 mg/dL [facility] ([place]) Glucose 201(H) 70 - 199 mg/dL [facility] ([place]) Comment: Interpretive Data Fasting glucose [...] 2022. Calcium 9.9 8.5 - 10.3 mg/dL [facility] ([place]) Blood 06/16/2024 7:59 AM TILE SPRAYER 06/16/2024 8:45 AM TILE SPRAYER us Arash Zazueta Jr., MD LAB BLOOD ORDERABLE S Final Result SHAKEEL [facility] ([place]) 1 [facility] [place] [address] * (ABNORMAL) POCT glucose (06/16/2024 7:10 AM TILE SPRAYER) [facility] Glucose, POC 210(H) 70 - 199 mg/dL Comment:Glu2: RN/ Notified Blood 06/16/2024 7:10 AM TILE SPRAYER 06/16/2024 7:10 AM TILE SPRAYER us Dillon Romano MD LAB POCT ORDERABLES - DEVICE Final Result SHAKEEL MERRITT ([place]) 1 [facility] [place] [address] * POCT glucose (06/16/2024 2:34 AM TILE SPRAYER) Glucose, POC 177 70 - 199 mg/dL Blood 06/16/2024 2:34 AM TILE SPRAYER 06/16/2024 2:34 AM TILE SPRAYER us Dillon Romano MD LAB POCT ORDERABLES - DEVICE Final Result Performing Organization Address City/[facility] Co de Phone Number SHAKEEL MERRITT ([place]) 1 [facility] [place] [address] * POCT glucose (06/15/2024 7:56 PM TILE SPRAYER) Glucose, POC 184 70 - 199 mg/dL Blood 06/15/2024 7:56 PM TILE SPRAYER 06/15/2024 7:56 PM TILE SPRAYER Dillon Romano MD LAB POCT ORDERABLES - DEVICE Final Result Performing Organization Address [facility] Co de Phone Number [facility]EL [facility] ([place]) 1 [facility] [place] [address] * POCT glucose (06/15/2024 4:36 PM TILE SPRAYER) Glucose, POC 193 70 - 199 mg/dL Blood 06/15/2024 4:36 PM TILE SPRAYER 06/15/2024 4:36 PM TILE SPRAYER Dillon Romano MD LAB POCT ORDERABLES - DEVICE Final Result Performing Organization Address City/[facility] Co de Phone Number SHAKEEL [facility] ([place]) 1 [facility] [place] [address] * (ABNORMAL) POCT glucose (06/15/2024 11:10 AM TILE SPRAYER) Glucose, POC 245(H) 70 - 199 mg/dL Comment:Glu2: RN/ Notified Blood 06/15/2024 11:1 0 AM TILE SPRAYER 06/15/2024 11:10 AM TILE SPRAYER Dillon Romano MD LAB POCT ORDERABLES - DEVICE Final Result Performing Organization Address City/[facility]/ZIP Co de Phone Number SHAKEEL MERRITT ([place]) 1 [facility] [place] [address] * POCT glucose (06/15/2024 7:34 AM TILE SPRAYER) Glucose, POC 166 70 - 199 mg/dL Blood 06/15/2024 7:34 AM TILE SPRAYER 06/15/2024 7:34 AM TILE SPRAYER Dillon Romano MD LAB POCT ORDERABLES - DEVICE Final Result Performing Organization Address [facility] de Phone Number SHAKEEL MERRITT ([place]) 1 [facility] [place] [address] * POCT glucose (06/15/2024 2:05 AM TILE SPRAYER) Glucose, POC 185 70 - 199 mg/dL Blood 06/15/2024 2:05 AM TILE SPRAYER 06/15/2024 2:05 AM TILE SPRAYER us Arash Zazueta Jr., MD LAB POCT ORDERABLES - DEVICE Final Result Performing Organization Address City/[facility] Co de Phone Number SHAKEEL MERRITT ([place]) 1 [facility] [place] [address] * POCT glucose (06/14/2024 9:01 PM TILE SPRAYER) Glucose, POC 145 70 - 199 mg/dL Blood 06/14/2024 9:01 PM TILE SPRAYER 06/14/2024 9:01 PM TILE SPRAYER Arash Zazueta Jr., MD LAB POCT ORDERABLES - DEVICE Final Result Performing Organization Address City/[facility] Co de Phone Number SHAKEEL MERRITT ([place]) 1 [facility] [place] [address] * POCT glucose (06/14/2024 4:25 PM TILE SPRAYER) Glucose, POC 198 70 - 199 mg/dL Blood 06/14/2024 4:25 PM TILE SPRAYER 06/14/2024 4:25 PM TILE SPRAYER us Arash Zazueta Jr., MD LAB POCT ORDERABLES - DEVICE Final Result SHAKEEL MERRITT ([place]) 1 [place] [address] * eGFR (06/14/2024 12:14 PM TILE SPRAYER) eGFR 61 >=60 mL/min/1. 73 m2 Comment: [...] reviewed 2021. Blood 06/14/2024 12:1 4 PM TILE SPRAYER 06/14/2024 12:16 PM TILE SPRAYER us [facility] LAB BLOOD ORDERABLES Final Resu lt SHAKEEL MERRITT ([place]) 1 [facility] [place] [address] * Differential, auto (06/14/2024 12:14 PM TILE SPRAYER) Neutrophil abs 6.3 1.5 - 6.5 K/cumm [...] on 2017. Blood 06/14/2024 12:1 4 PM TILE SPRAYER 06/14/2024 12:16 PM TILE SPRAYER [facility] LAB BLOOD ORDERABLES Final Resu lt [facility] ([place]) 1 [facility] [place] [address] * (ABNORMAL) CBC with auto differential (06/14/2024 12:14 PM TILE SPRAYER) WBC 9.3 3.8 - 9.9 K/cumm Hgb [...] [facility] ([place]) Blood 06/14/2024 12:1 4 PM TILE SPRAYER 06/14/2024 12:16 PM TILE SPRAYER [facility] LAB BLOOD ORDERABLES Final Resu lt Performing Organization Address City/[facility]/ZIP Co de Phone Number SHAKEEL [facility] ([place]) 1 [facility] [place] [address] * (ABNORMAL) Comprehensive metabolic panel (06/14/2024 12:14 PM TILE SPRAYER) Sodium 135 135 - 145 mmol/L Potassium, [...] [facility] ([place]) Blood 06/14/2024 12:1 4 PM TILE SPRAYER 06/14/2024 12:16 PM TILE SPRAYER us [facility] LAB BLOOD ORDERABLES Final Resu lt SHAKEEL [facility] ([place]) 1 [facility] Department [place] [address] * XR Knee Right 4+ Vw (Routine) (06/14/2024 11:21 AM TILE SPRAYER) Anatomical Region Laterality Modality Lower Extremities, Knee Right Computed Radiography 06/14/2024 11:2 9 AM TILE SPRAYER Narrative 06/14/2024 11:32 AM TILE SPRAYER EXAM DESCRIPTION: XR KNEE RIGHT 4 OR [...] Electronically signed by Sidney Cornell M.D. KR: KR Report ID: [id number] Reading Location: [id number] Procedure Note Sidney Cornell MD - 06/14/2024 [...] Electronically signed by Sidney Cornell M.D. KR: KR Report ID: [id number] Reading Location: [place] [address] us Camron Davalos MD IMG XR PROCEDURES F inal Result * (ABNORMAL) eGFR (05/13/2024 11:59 AM TILE SPRAYER) eGFR 55(L) >=60 mL/min/1. 73 m2 Comment: [...] of Race in Diagnosing Kidney Disease, JASN 202). The CKD-EPI equation should not be used for patients with unstable renal function and has not been validated in children and those over 70. Current interpretive data was last reviewed 2021. Blood 05/13/2024 11:5 9 AM TILE SPRAYER 05/13/2024 12:56 PM TILE SPRAYER us Sidney Westfall MD LAB BLOOD ORDERABLES Final Re sult SHAKEEL [facility] [place] [address] * Differential, auto (05/13/2024 11:59 AM TILE SPRAYER) Neutrophil abs 5.2 1.5 - 6.5 K/cumm Imm gran abs 0.0 0.0 - 0.1 K/cumm [facility] Lymphocyte abs 1.8 0.8 - 3.3 K/cumm [facility] Monocyte abs 0.7 0.2 - 0.8 K/cumm [facility] Eosinophil abs 0.1 0.0 - 0.5 K/cumm [facility] Basophil abs 0.0 0.0 - 0.1 K/cumm [facility] Neutrophil pct 65.7 % [facility] Comment: Interpretive Data Percent cell count reference ranges are not reported, since discordance with absolute values may lead to misinterpretation of CBC data. Current Interpretive Data was last revised on 2017. Imm gran pct 0.4 % [facility] Comment: Interpretive Data Percent cell count reference ranges are not reported, since discordance with absolute values may lead to misinterpretation of CBC data. Current Interpretive Data was last revised on 2017. Lymphocyte pct 22.9 % [facility] Comment: Interpretive Data Percent cell count reference ranges are not reported, since discordance with absolute values may lead to misinterpretation of CBC data. Current Interpretive Data was last revised on 2017. Monocyte pct 9.0 % [facility] Comment: Interpretive Data Percent cell count reference ranges are not reported, since discordance with absolute values may lead to misinterpretation of CBC data. Current Interpretive Data was last revised on 2017. Eosinophil pct 1.6 % [facility] Comment: Interpretive Data Percent cell count reference ranges are not reported, since discordance with absolute values may lead to misinterpretation of CBC data. Current Interpretive Data was last revised on 2017. Basophil pct 0.4 % [facility] Comment: Interpretive Data Percent cell count reference ranges are not reported, since discordance with absolute values may lead to misinterpretation of CBC data. Current Interpretive Data was last revised on 2017. Blood 05/13/2024 11:5 9 AM TILE SPRAYER 05/13/2024 12:56 PM TILE SPRAYER us Sidney Westfall MD LAB BLOOD ORDERABLES Final Re sult Performing Organization Address [facility] de Phone Number [facility] [place] [address] * (ABNORMAL) CBC with auto differential (05/13/2024 11:59 AM TILE SPRAYER) [facility] WBC 7.9 3.8 - 9.9 K/cumm Hgb 10.5(L) 11.9 - 15.5 g/dL [facility] Hct 32.2(L) 35.6 - 45.5 % [facility] Plt 342 150 - 400 K/cumm [facility] MPV 8.9(L) 9.1 - 12.3 fL [facility] RBC 3.67(L) 3.90 - 5.20 M/cumm [facility] MCV 87.7 81.3 - 96.4 fL [facility] MCH 28.6 27.1 - 33.3 pg [facility] MCHC 32.6 32.3 - 35.7 g/dL [facility] RDW CV 13.3 11.1 - 14.9 % [facility] RDW SD 43.0 35.7 - 48.1 fL [facility] NRBC abs 0.00 0.00 - 0.01 K/cumm [facility] Blood 05/13/2024 11:5 9 AM TILE SPRAYER 05/13/2024 12:56 PM TILE SPRAYER Sidney Westfall MD LAB BLOOD ORDERABLES Final Re sult Performing Organization Address [facility] Co de Phone Number [facility] [place] [address] * Albumin Creatinine Ratio, Urine (05/13/2024 11:59 AM TILE SPRAYER) [facility] Albumin Ur <12.0 mg/L Comment: Interpretive Data No reference range established. Current interpretive data was last revised 2018. Creatinine Ur 25.7 mg/dL [facility] Comment: Interpretive Data No reference range established. Current interpretive data was last revised 2018. Albumin Creatinine Ratio, Ur See Comment 1 - 29 mg/g [facility] Comment:Unable to calculate Urine 05/13/2024 11:5 9 AM TILE SPRAYER 05/13/2024 12:51 PM TILE SPRAYER us Sidney Westfall MD LAB URINE ORDERABLES Final Re sult Performing Organization Address [facility] Co de Phone Number [facility] [place] [address] * TSH (05/13/2024 11:59 AM TILE SPRAYER) Pathologist [facility] Thyroid Stimulating Hormone 3.01 0.30 - 4.20 mcIUnit/mL Blood 05/13/2024 11:5 9 AM TILE SPRAYER 05/13/2024 12:56 PM TILE SPRAYER us Sidney Westfall MD LAB BLOOD ORDERABLES Final Re sult Performing Organization Address [facility] de Phone Number [facility] [place] [address] * (ABNORMAL) Comprehensive metabolic panel (05/13/2024 11:59 AM TILE SPRAYER) Pathologist [facility] Sodium 137 135 - 145 mmol/L Potassium, pl 5.0(H) 3.3 - 4.9 mmol/L [facility] Chloride 102 97 - 110 mmol/L [facility] CO2 23 22 - 32 mmol/L [facility] Anion gap 12 2 - 15 mmol/L [facility] BUN 23 6 - 25 mg/dL [facility] Creatinine 1.06 0.60 - 1.10 mg/dL [facility] Glucose 136 70 - 199 mg/dL [facility] Comment: Interpretive Data Fasting glucose >/= 126 [...] 2022. Calcium 10.2 8.5 - 10.3 mg/dL [facility] Bilirubin, total 0.3 0.1 - 1.2 mg/dL [facility] [place] Protein, pl 7.9 6.5 - 8.5 g/dL [facility] Albumin 4.6 3.5 - 5.0 g/dL [facility] Alk phos 104 40 - 130 Units/L [facility] ALT <5(L) 7 - 45 Units/L [facility] AST 25 10 - 45 Units/L [facility] Blood 05/13/2024 11:5 9 AM TILE SPRAYER 05/13/2024 12:56 PM TILE SPRAYER us Sidney Westfall MD LAB BLOOD ORDERABLES Final Re sult [facility] [place] [address] * POCT hemoglobin A1c (02/18/2024 12:34 PM CDT) Pathologist [facility] Hemoglobin A1C, POC 5.5 4.0 - 5.6 [...] - 11/07/2023 11:13 AM CDT Performed at: 01 - [facility] [address] [id number] Needle Punch Machine Operator Helper: Abraham Bob PhD, Phone: [phone] Sidney Westfall MD LAB MICROBIOLOGY - GENERAL [...] Recently Relevant to Health Maintenance Insurance MEDICARE [facility] Address: [address] [address] [facility] [place] [address] MEDICARE [facility] [place] [address] MEDICARE [facility] [address] MEDICARE Advance Directives For more information, please contact: [phone] * Full Code (Latest Code Status on File) Date Activated Date Inactivated Comments 06/14/2024 1:09 PM 06/17/2024 8:37 PM * Full Code Date Activated Date Inactivated Comments 04/25/2022 10:48 PM 04/27/2022 3:40 PM Care Teams Lounge Car Attendant Relationship Specialty Start Date End Date Sidney Westfall MD [address] [facility] [address] [address] PCP - General Internal Medicine 03/28/20
--- OUTSIDE RECORDS SUMMARY | 2024-08-05 09:21 | XMS_ITS | Clinical Summary ---
Author Organization [facility] Virtual Care Address [address] [place] [phone] Phone Care Team Providers Care Milk Delivery Driver Name Role Phone Sidney Westfall MD Primary Care Provider [phone] Allergies No known active allergies Medications albuterol HFA (Proventil HFA) 90 mcg/actuation inhaler Inhale 2 puffs every 4 (four) hours as needed for wheezing or shortness of breath 3 each 1 3 Active pen needle, diabetic, safety 31 gauge x 16 needleIndications: Type 2 diabetes mellitus without complication, unspecified whether ferry terminal agent insulin use (HCC) 45 Units daily inject [...] Rx Assessment & Plan (07/10/2020 10:39 AM INSURANCE EXECUTIVE): A1c at target. Will continue present Rx. Check BMP and microalbumin Hyperlipidemia 07/10/2020 Assessment & Plan (02/18/2024 1:11 PM CDT): Doing well at this time Assessment & Plan (07/10/2020 10:39 AM INSURANCE EXECUTIVE): Lipid elevated. Consider ezetemibe in the future. Essential hypertension 07/10/2020 Assessment & Plan (02/18/2024 1:11 PM CDT): BP at target Assessment & Plan (07/10/2020 10:39 AM INSURANCE EXECUTIVE): Blood pressure at target doing well Anxiety 07/10/2020 Assessment & Plan (07/10/2020 10:39 AM INSURANCE EXECUTIVE): Will increase alprazolam 2.5 b.i.d. Orthostatic hypotension Encounters Date Type Department Care Team Description 07/31/2024 10:17 PM CDT - 07/31/2024 10:46 PM CDT Emergency [facility] Emergency Department [address] [place] [address] Fall, initial encounter (Primary Dx) Discharge Disposition: Discharge to home or self care 07/29/2024 Results Follow-Up [facility] [address] [place] [phone] Sidney Westfall MD Abnormal mammogram of right breast (Primary Dx) 07/29/2024 Orders Only [facility] [address] [place] [phone] Sidney Westfall MD 07/20/2024 Telephone [facility] [address] [place] [phone] Sidney Westfall MD home health orders 07/13/2024 10:15 AM INSURANCE EXECUTIVE Office Visit [facility] [address] [place] [phone] Demarco Rainey NP Right knee pain, unspecified chronicity (Primary Dx); Closed nondisplaced longitudinal fracture of right patella, initial encounter 07/13/2024 7:39 AM INSURANCE EXECUTIVE - 07/13/2024 11:59 PM INSURANCE EXECUTIVE Hospital Encounter [facility] Medical [facility] [address] [place] [phone] Discharge Disposition: Discharge to home or self care 07/12/2024 Telephone [facility] [address] [place] [phone] Sidney Westfall MD Scheduling Testing/Treatment 06/14/2024 11:17 AM INSURANCE EXECUTIVE - 06/17/2024 4:37 PM INSURANCE EXECUTIVE Hospital Encounter [facility] Surgery [facility] [address] [place] [phone] Arash Zazueta Jr., MD Okonkwo, Kasiemobi Bernice, MD Singh, Supriya, MD Closed sleeve fracture of right patella, initial encounter (Primary Dx) Discharge Disposition: Discharge to [facility] 05/13/2024 12:55 PM INSURANCE EXECUTIVE Lab [facility] [address] [place] [phone] Type 2 diabetes mellitus without complication, without long-term current use of insulin (HCC); Mixed hyperlipidemia; Essential hypertension; Parkinson'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, with fluctuating manifestations (HCC); Anemia, unspecified type 05/13/2024 11:00 AM INSURANCE EXECUTIVE Office Visit [facility] [address] [facility] [address] [place] [phone] Sidney Westfall MD Type 2 diabetes mellitus without complication, without long-term current use of insulin (HCC) (Primary Dx); Mixed hyperlipidemia; Essential hypertension; Parkinson'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, with fluctuating manifestations (HCC); Anemia, unspecified type 05/13/2024 Telephone [facility] Scheduling [address] [place] [address] Felipe Rivas MD Scheduling Appointments from Last 3 Months Immunizations Immunization Administration Dates Next Due COVID-19 mRNA ([employer]) 0.3 m L (30 mcg) vaccine (12 [...] on file Legal Sex Female 12:14 AM INSURANCE EXECUTIVE Gender Identity Female 11/17/2023 1:33 PM CDT [...] 07/31/2024 8:12 PM CDT Plan of Treatment Health Maintenance Due Date Last Done Comments Dilated Eye Exam 1950 Foot Exam 1950 DTaP/Tdap/Td Vaccine (1 - Tdap) 1961 Hepatitis B Screening 1968 Well Visit 65+ 2015 Breast Cancer Screening-Mammogram 2023 023 Hemoglobin A1C 08/18/2024 02/18/2024, 10/18, 05/06/2023, Additional history exists Covid-19 Vaccine (2023-2 5 season) 2024 03/08/2024, 04/01/2022, 04/09/2021 Lipid Panel 11/05/2024 11/06/2023, 12/01/2022, 10/09/2021, Additional history exists Osteoporosis Screening-Bone Density Scan 11/07/2024 11/07/2022 Albumin Creatinine Ratio, Urine 05/13/2025 , 11/06/2023 Depression Screening 06/14/2025 06/14/2024, 04/25/2022, 04/25/2022 Fall Risk Assessment 06/17/2025 06/17/2024 eGFR 07/31/2025 07/31/2024, 05/20, 06/14/2024, Additional history exists Colon Cancer Screening-Colonoscopy 06/09/2029 06/09/2019 Colon Cancer [...] Read Routine (OP Routine) 07/13/2024 10:34 AM INSURANCE EXECUTIVE Right knee pain, unspecified chronicity POCT GLUCOSE DEVICE Routine 06/17/2024 4 :01 PM INSURANCE EXECUTIVE POCT GLUCOSE DEVICE Routine 06/17/2024 11:33 AM INSURANCE EXECUTIVE POCT GLUCOSE DEVICE Routine 06/17/2024 7 :32 AM INSURANCE EXECUTIVE DIFFERENTIAL AUTO Routine 06/17/2024 4:2 2 AM INSURANCE EXECUTIVE CBC WITH AUTO DIFFERENTIAL Routine 06/17/2024 4:22 AM INSURANCE EXECUTIVE POCT GLUCOSE DEVICE Routine 06/17/2024 2 :05 AM INSURANCE EXECUTIVE POCT GLUCOSE DEVICE Routine 06/16/2024 8 :43 PM INSURANCE EXECUTIVE POCT GLUCOSE DEVICE Routine 06/16/2024 4 :13 PM INSURANCE EXECUTIVE POCT GLUCOSE DEVICE Routine 06/16/2024 11:08 AM INSURANCE EXECUTIVE EGFR Timed 06/16/2024 7:59 AM INSURANCE EXECUTIVE DIFFERENTIAL AUTO Routine 06/16/2024 7:5 9 AM INSURANCE EXECUTIVE CBC WITH AUTO DIFFERENTIAL Routine 06/16/2024 7:59 AM INSURANCE EXECUTIVE BASIC METABOLIC PANEL Timed 06/16/2024 7:59 AM INSURANCE EXECUTIVE POCT GLUCOSE DEVICE Routine 06/16/2024 7 :10 AM INSURANCE EXECUTIVE POCT GLUCOSE DEVICE Routine 06/16/2024 2 :34 AM INSURANCE EXECUTIVE POCT GLUCOSE DEVICE Routine 06/15/2024 7 :56 PM INSURANCE EXECUTIVE POCT GLUCOSE DEVICE Routine 06/15/2024 4 :36 PM INSURANCE EXECUTIVE POCT GLUCOSE DEVICE Routine 06/15/2024 11:10 AM INSURANCE EXECUTIVE POCT GLUCOSE DEVICE Routine 06/15/2024 7 :34 AM INSURANCE EXECUTIVE POCT GLUCOSE DEVICE Routine 06/15/2024 2 :05 AM INSURANCE EXECUTIVE POCT GLUCOSE DEVICE Routine 06/14/2024 9 :01 PM INSURANCE EXECUTIVE POCT GLUCOSE DEVICE Routine 06/14/2024 4 :25 PM INSURANCE EXECUTIVE EGFR STAT 06/14/2024 12:14 PM INSURANCE EXECUTIVE DIFFERENTIAL AUTO STAT 06/14/2024 12:14 PM INSURANCE EXECUTIVE COMPREHENSIVE METABOLIC PANEL STAT 06/14/2024 12:14 PM INSURANCE EXECUTIVE CBC WITH AUTO DIFFERENTIAL STAT 06/14/2024 12:14 PM INSURANCE EXECUTIVE XR KNEE RIGHT 4 OR MORE VIEWS ED 06/14/2024 11:21 AM INSURANCE EXECUTIVE EGFR Routine 05/13/2024 11:59 AM INSURANCE EXECUTIVE Type 2 diabetes mellitus without complication, without long-term current use of insulin (HCC) Mixed hyperlipidemia Essential hypertension Parkinson'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, with fluctuating manifestations (HCC) Anemia, unspecified type DIFFERENTIAL AUTO Routine 05/13/2024 11:59 AM INSURANCE EXECUTIVE Type 2 diabetes mellitus without complication, without long-term current use of insulin (HCC) Mixed hyperlipidemia Essential hypertension Parkinson'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, with fluctuating manifestations (HCC) Anemia, unspecified type COMPREHENSIVE METABOLIC PANEL Routine 05/13/2024 11:59 AM INSURANCE EXECUTIVE Type 2 diabetes mellitus without complication, without long-term current use of insulin (HCC) Mixed hyperlipidemia Essential hypertension Parkinson'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, with fluctuating manifestations (HCC) Anemia, unspecified type TSH Routine 05/13/2024 11:59 AM INSURANCE EXECUTIVE Type 2 diabetes mellitus without complication, without long-term current use of insulin (HCC) Mixed hyperlipidemia Essential hypertension Parkinson'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, with fluctuating manifestations (HCC) Anemia, unspecified type ALBUMIN CREATININE RATIO, URINE Routine 05/13/2024 11:59 AM INSURANCE EXECUTIVE Type 2 diabetes mellitus without complication, without long-term current use of insulin (HCC) Mixed hyperlipidemia Essential hypertension Parkinson'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, with fluctuating manifestations (HCC) Anemia, unspecified type CBC WITH AUTO DIFFERENTIAL Routine 05/13/2024 11:59 AM INSURANCE EXECUTIVE Type 2 diabetes mellitus without complication, without [...] 2 diabetes mellitus without complication, unspecified whether ferry terminal agent insulin use (HCC) Mixed hyperlipidemia Parkinson's disease [...] Camron Dunn M.D. AR: BRUNO Report ID: [id number] Reading Location: [id number] Procedure Note Camron Dunn MD - 07/31/2024 [...] Camron Dunn M.D. AR: AR Report ID: [id number] Reading Location: [place] [address] us Kenneth Low MD IMG XR PROCEDURES [...] Camron Dunn M.D. AR: AR Report ID: [id number] Reading Location: [id number] Procedure Note Camron Dunn MD - 07/31/2024 [...] Camron Dunn M.D. AR: BRUNO Report ID: [id number] Reading Location: [id number] [facility] CT PROCEDURES Final Result * CT Head [...] Camron Dunn M.D. AR: BRUNO Report ID: [id number] Reading Location: [id number] Procedure Note Camron Dunn MD - 07/31/2024 [...] Camron Dunn M.D. AR: BRUNO Report ID: [id number] Reading Location: [id number] [facility] CT PROCEDURES Final Result * (ABNORMAL) eGFR [...] BLOOD ORDERABLES Final Re sult [facility] ([place] 1 [facility] [place] [address] * Differential, auto (07/31/2024 8:21 PM CDT) Neutrophil abs 3.3 1.5 - 6.5 K/cumm Imm gran abs 0.0 0.0 - 0.1 K/cumm [facility] ([place]) Lymphocyte abs 2.2 0.8 - 3.3 K/cumm [facility] ([place]) Monocyte abs 0.5 0.2 - 0.8 K/cumm [facility] ([place]) Eosinophil abs 0.2 0.0 - 0.5 K/cumm [facility] ([place]) Basophil abs 0.0 0.0 - 0.1 K/cumm [facility] ([place]) Neutrophil pct 53.4 % [facility] [...] revised on 2017. Lymphocyte pct 34.9 % [facility] ([place]) Comment: Interpretive Data Percent cell count reference ranges are not reported, since discordance with absolute values may lead to misinterpretation of CBC data. Current Interpretive Data was last revised on 2017. Monocyte pct 8.4 % [facility] ([place]) Comment: Interpretive Data Percent cell count reference ranges are not reported, since discordance with absolute values may lead to misinterpretation of CBC data. Current Interpretive Data was last revised on 2017. Eosinophil pct 2.7 % [facility] ([place]) Comment: Interpretive Data Percent cell count reference ranges are not reported, since discordance with absolute values may lead to misinterpretation of CBC data. Current Interpretive Data was last revised on 2017. Basophil pct 0.3 % [facility] ([place]) Comment: Interpretive Data Percent cell count reference ranges are not reported, since discordance with absolute values may lead to misinterpretation of CBC data. Current Interpretive Data was last revised on 2017. Blood 07/31/2024 8:21 PM CDT 07/31/2024 8:24 PM CDT us Kenneth Low MD LAB BLOOD ORDERABLES Final Re sult [facility] ([place]) 1 [facility] Department [place] [address] * (ABNORMAL) CBC with auto differential (07/31/2024 [...] MD LAB BLOOD ORDERABLES Final Re sult [facility] ([place]) 1 [facility] [place] [address] * (ABNORMAL) Comprehensive metabolic panel (07/31/2024 8:21 [...] 45 Units/L [facility] ([place]) Blood 07/31/2024 8:2 1 PM CDT 07/31/2024 8:24 PM CDT us Kenneth Low MD LAB BLOOD ORDERABLES Final Re sult [facility] ([place]) 1 [facility] Department [place] [address] * SCAN - RADIOLOGY/IMAGING (07/29/2024 9:05 AM CDT) Anatomical Region Laterality Modality Other us Sidney Westfall MD Final Result * XR Knee Right 3 View (07/13/2024 10:34 AM INSURANCE EXECUTIVE) Anatomical Region Laterality Modality Lower Extremities, Knee Right Digital Radiography Narrative 07/13/2024 11:40 AM INSURANCE EXECUTIVE 4 view of the knee show mild tricompartmental osteoarthritis. No dislocations noted. Minimally displaced lateral facet fracture is again viewed, no worsening displacement. Interval callus noted Demarco Rainey ELECTRON GUN INSPECTOR IMG XR PROCEDURES Final Result * POCT glucose (06/17/2024 4:01 PM INSURANCE EXECUTIVE) Glucose, POC 113 70 - 199 mg/dL Blood 06/17/2024 4:01 PM INSURANCE EXECUTIVE 06/17/2024 4:01 PM INSURANCE EXECUTIVE Dillon Romano MD LAB POCT ORDERABLES - DEVICE Final Result [facility] 1 [facility] [place] [address] * POCT glucose (06/17/2024 11:33 AM INSURANCE EXECUTIVE) Glucose, POC 177 70 - 199 mg/dL Blood 06/17/2024 11:3 3 AM INSURANCE EXECUTIVE 06/17/2024 11:33 AM INSURANCE EXECUTIVE Dillon Romano MD LAB POCT ORDERABLES - DEVICE Final Result Performing Organization Address City/[facility]/ZIP Co de Phone Number [facility] ([place] 1 [facility] [place] [address] * POCT glucose (06/17/2024 7:32 AM INSURANCE EXECUTIVE) Glucose, POC 177 70 - 199 mg/dL Blood 06/17/2024 7:32 AM INSURANCE EXECUTIVE 06/17/2024 7:32 AM INSURANCE EXECUTIVE Dillon Romano MD LAB POCT ORDERABLES - DEVICE Final Result [facility] 1 [facility] [place] [address] * Differential, auto (06/17/2024 4:22 AM INSURANCE EXECUTIVE) Neutrophil abs 3.0 1.5 - 6.5 K/cumm [...] revised on 2017. Blood 06/17/2024 4:22 AM INSURANCE EXECUTIVE 06/17/2024 4:38 AM INSURANCE EXECUTIVE us Arash Zazueta Jr., MD LAB BLOOD ORDERABLE S Final Result [facility] ([place]) 1 [facility] [place] [address] * (ABNORMAL) CBC with auto differential (06/17/2024 4:22 AM INSURANCE EXECUTIVE) [facility] WBC 5.3 3.8 - 9.9 K/cumm Hgb [...] [facility] ([place]) Blood 06/17/2024 4:22 AM INSURANCE EXECUTIVE 06/17/2024 4:38 AM INSURANCE EXECUTIVE us Arash Zazueta Jr., MD LAB BLOOD ORDERABLE S Final Result [facility] ([place]) 1 [facility] [place] [address] * POCT glucose (06/17/2024 2:05 AM INSURANCE EXECUTIVE) Glucose, POC 179 70 - 199 mg/dL Blood 06/17/2024 2:05 AM INSURANCE EXECUTIVE 06/17/2024 2:05 AM INSURANCE EXECUTIVE us Dillon Romano MD LAB POCT ORDERABLES - DEVICE Final Result Performing Organization Address City/[facility]/ZIP Co de Phone Number [facility] ([place] 1 [facility] [place] [address] * POCT glucose (06/16/2024 8:43 PM INSURANCE EXECUTIVE) Glucose, POC 191 70 - 199 mg/dL Blood 06/16/2024 8:43 PM INSURANCE EXECUTIVE 06/16/2024 8:43 PM INSURANCE EXECUTIVE us Dillon Romano MD LAB POCT ORDERABLES - DEVICE Final Result Performing Organization Address [facility] Co de Phone Number [facility] ([place] 1 [facility] [place] [address] * POCT glucose (06/16/2024 4:13 PM INSURANCE EXECUTIVE) Glucose, POC 154 70 - 199 mg/dL Blood 06/16/2024 4:13 PM INSURANCE EXECUTIVE 06/16/2024 4:13 PM INSURANCE EXECUTIVE us Dillon Romano MD LAB POCT ORDERABLES - DEVICE Final Result Performing Organization Address [facility] Co de Phone Number [facility] ([place] 1 [facility] [place] [address] * POCT glucose (06/16/2024 11:08 AM INSURANCE EXECUTIVE) Glucose, POC 194 70 - 199 mg/dL Blood 06/16/2024 11:0 8 AM INSURANCE EXECUTIVE 06/16/2024 11:08 AM INSURANCE EXECUTIVE us Dillon Romano MD LAB POCT ORDERABLES - DEVICE Final Result Performing Organization Address City/[facility]/ZIP Co de Phone Number [facility] ([place] 1 [facility] [place] [address] * (ABNORMAL) eGFR (06/16/2024 7:59 AM INSURANCE EXECUTIVE) Pathologist [facility] eGFR 57(L) >=60 mL/min/1. 73 m2 Comment: [...] last reviewed 2021. Blood 06/16/2024 7:59 AM INSURANCE EXECUTIVE 06/16/2024 8:45 AM INSURANCE EXECUTIVE us Arash Zazueta Jr., MD LAB BLOOD ORDERABLE S Final Result [facility] ([place]) 1 [facility] Department [place] [address] * Differential, auto (06/16/2024 7:59 AM INSURANCE EXECUTIVE) Pathologist [facility] Neutrophil abs 3.4 1.5 - 6.5 K/cumm [...] revised on 2017. Blood 06/16/2024 7:59 AM INSURANCE EXECUTIVE 06/16/2024 8:45 AM INSURANCE EXECUTIVE us Arash Zazueta Jr., MD LAB BLOOD ORDERABLE S Final Result [facility] ([place] 1 [facility] Department [place] [address] * (ABNORMAL) CBC with auto differential (06/16/2024 7:59 AM INSURANCE EXECUTIVE) Pathologist [facility] WBC 5.3 3.8 - 9.9 K/cumm Hgb [...] - 33.3 pg [facility] ([place]) MCHC 32.1(L) 32.3 - 35.7 g/dL [facility] ([place]) RDW CV 13.2 11.1 - 14.9 % [facility] ([place]) RDW SD 43.4 35.7 - 48.1 fL [facility] ([place]) NRBC abs 0.00 0.00 - 0.01 K/cumm [facility] ([place]) Blood 06/16/2024 7:59 AM INSURANCE EXECUTIVE 06/16/2024 8:45 AM INSURANCE EXECUTIVE us Arash Zazueta Jr., MD LAB BLOOD ORDERABLE S Final Result [facility] ([place]) 1 [facility] Department [place] [address] * (ABNORMAL) Basic metabolic panel (06/16/2024 7:59 AM INSURANCE EXECUTIVE) Pathologist [facility] Sodium 137 135 - 145 mmol/L Potassium, pl 4.4 3.3 - 4.9 mmol/L [facility] ([place]) Chloride 102 97 - 110 mmol/L [facility] ([place]) CO2 22 22 - 32 mmol/L [facility] ([place]) Anion gap 14 2 - 15 mmol/L [facility] ([place]) BUN 22 6 - 25 mg/dL [facility] ([place]) Creatinine 1.03 0.60 - 1.10 mg/dL [facility] ([place]) Glucose 201(H) 70 - 199 mg/dL [facility] ([place]) Comment: Interpretive Data Fasting glucose [...] 2022. Calcium 9.9 8.5 - 10.3 mg/dL [facility] ([place]) Blood 06/16/2024 7:59 AM INSURANCE EXECUTIVE 06/16/2024 8:45 AM INSURANCE EXECUTIVE us Arash Zazueta Jr., MD LAB BLOOD ORDERABLE S Final Result [facility] ([place]) 1 [facility] [place] [address] * (ABNORMAL) POCT glucose (06/16/2024 7:10 AM INSURANCE EXECUTIVE) Glucose, POC 210(H) 70 - 199 mg/dL Comment:Glu2: RN/ Notified Blood 06/16/2024 7:10 AM INSURANCE EXECUTIVE 06/16/2024 7:10 AM INSURANCE EXECUTIVE us Dillon Romano MD LAB POCT ORDERABLES - DEVICE Final Result [facility] ([place]) 1 [facility] [place] [address] * POCT glucose (06/16/2024 2:34 AM INSURANCE EXECUTIVE) Glucose, POC 177 70 - 199 mg/dL Blood 06/16/2024 2:34 AM INSURANCE EXECUTIVE 06/16/2024 2:34 AM INSURANCE EXECUTIVE Dillon Romano MD LAB POCT ORDERABLES - DEVICE Final Result Performing Organization Address City/[facility]/ZIP Co de Phone Number [facility] ([place]) 1 [facility] [place] [address] * POCT glucose (06/15/2024 7:56 PM INSURANCE EXECUTIVE) Glucose, POC 184 70 - 199 mg/dL Blood 06/15/2024 7:56 PM INSURANCE EXECUTIVE 06/15/2024 7:56 PM INSURANCE EXECUTIVE Dillon Romano MD LAB POCT ORDERABLES - DEVICE Final Result Performing Organization Address City/[facility] Co de Phone Number [facility] ([place]) 1 [facility] [place] [address] * POCT glucose (06/15/2024 4:36 PM INSURANCE EXECUTIVE) Glucose, POC 193 70 - 199 mg/dL Blood 06/15/2024 4:36 PM INSURANCE EXECUTIVE 06/15/2024 4:36 PM INSURANCE EXECUTIVE Dillon Romano MD LAB POCT ORDERABLES - DEVICE Final Result Performing Organization Address City/[facility] Co de Phone Number [facility] ([place]) 1 [facility] [place] [address] * (ABNORMAL) POCT glucose (06/15/2024 11:10 AM INSURANCE EXECUTIVE) Glucose, POC 245(H) 70 - 199 mg/dL Comment:Glu2: RN/MD Notified Blood 06/15/2024 11:1 0 AM INSURANCE EXECUTIVE 06/15/2024 11:10 AM INSURANCE EXECUTIVE Dillon Romano MD LAB POCT ORDERABLES - DEVICE Final Result [facility] ([place]) 1 [facility] [place] [address] * POCT glucose (06/15/2024 7:34 AM INSURANCE EXECUTIVE) Glucose, POC 166 70 - 199 mg/dL Blood 06/15/2024 7:34 AM INSURANCE EXECUTIVE 06/15/2024 7:34 AM INSURANCE EXECUTIVE us Dillon Romano MD LAB POCT ORDERABLES - DEVICE Final Result Performing Organization Address [facility]/ZIP Co de Phone Number [facility] ([place] 1 [facility] [place] [address] * POCT glucose (06/15/2024 2:05 AM INSURANCE EXECUTIVE) Glucose, POC 185 70 - 199 mg/dL Blood 06/15/2024 2:05 AM INSURANCE EXECUTIVE 06/15/2024 2:05 AM INSURANCE EXECUTIVE us Arash Zazueta Jr., MD LAB POCT ORDERABLES - DEVICE Final Result Performing Organization Address City/[facility]/ZIP Co de Phone Number [facility] ([place] 1 [facility] [place] [address] * POCT glucose (06/14/2024 9:01 PM INSURANCE EXECUTIVE) Glucose, POC 145 70 - 199 mg/dL Blood 06/14/2024 9:01 PM INSURANCE EXECUTIVE 06/14/2024 9:01 PM INSURANCE EXECUTIVE us Arash Zazueta Jr., MD LAB POCT ORDERABLES - DEVICE Final Result [facility] ([place] 1 [facility] [place] [address] * POCT glucose (06/14/2024 4:25 PM INSURANCE EXECUTIVE) Glucose, POC 198 70 - 199 mg/dL Blood 06/14/2024 4:25 PM INSURANCE EXECUTIVE 06/14/2024 4:25 PM INSURANCE EXECUTIVE us Arash Zazueta Jr., MD LAB POCT ORDERABLES - DEVICE Final Result [facility] ([place]) 1 [place] [address] * eGFR (06/14/2024 12:14 PM INSURANCE EXECUTIVE) eGFR 61 >=60 mL/min/1. 73 m2 Comment: [...] reviewed 2021. Blood 06/14/2024 12:1 4 PM INSURANCE EXECUTIVE 06/14/2024 12:16 PM INSURANCE EXECUTIVE us [facility] LAB BLOOD ORDERABLES Final Resu lt [facility] ([place]) 1 [facility] [place] [address] * Differential, auto (06/14/2024 12:14 PM INSURANCE EXECUTIVE) Neutrophil abs 6.3 1.5 - 6.5 K/cumm Imm gran abs 0.0 0.0 - 0.1 K/cumm [facility] ([place]) Lymphocyte abs 2.1 0.8 - 3.3 K/cumm [facility] ([place]) Monocyte abs 0.7 0.2 - 0.8 K/cumm [...] Imm gran pct 0.3 % [facility] ([place]) Comment: Interpretive Data Percent cell count reference [...] on 2017. Blood 06/14/2024 12:1 4 PM INSURANCE EXECUTIVE 06/14/2024 12:16 PM INSURANCE EXECUTIVE [facility] LAB BLOOD ORDERABLES Final Resu lt [facility] ([place]) 1 [facility] [place] [address] * (ABNORMAL) CBC with auto differential (06/14/2024 12:14 PM INSURANCE EXECUTIVE) WBC 9.3 3.8 - 9.9 K/cumm Hgb [...] [facility] ([place]) Blood 06/14/2024 12:1 4 PM INSURANCE EXECUTIVE 06/14/2024 12:16 PM INSURANCE EXECUTIVE [facility] LAB BLOOD ORDERABLES Final Resu lt [facility] ([place]) 1 [facility] of [place] [address] * (ABNORMAL) Comprehensive metabolic panel (06/14/2024 12:14 PM INSURANCE EXECUTIVE) Sodium 135 135 - 145 mmol/L Potassium, [...] [facility] ([facility]) Blood 06/14/2024 12:1 4 PM INSURANCE EXECUTIVE 06/14/2024 12:16 PM INSURANCE EXECUTIVE us [facility] LAB BLOOD ORDERABLES Final Resu lt [facility] ([facility]) 1 [facility] Department [place] [address] * XR Knee Right 4+ Vw (Routine) (06/14/2024 11:21 AM INSURANCE EXECUTIVE) Anatomical Region Laterality Modality Lower Extremities, Knee Right Computed Radiography 06/14/2024 11:2 9 AM INSURANCE EXECUTIVE Narrative 06/14/2024 11:32 AM INSURANCE EXECUTIVE EXAM DESCRIPTION: XR KNEE RIGHT 4 OR [...] Sidney Cornell M.D. KR: MARIAMA Report ID: [id number] Reading Location: [place] [address] Procedure Note Sidney Cornell MD - 06/14/2024 [...] Sidney Cornell M.D. KR: KR Report ID: [id number] Reading Location: [place] [address] us Camron Davalos MD IMG XR PROCEDURES F inal Result * (ABNORMAL) eGFR (05/13/2024 11:59 AM INSURANCE EXECUTIVE) eGFR 55(L) >=60 mL/min/1. 73 m2 Comment: [...] reviewed 2021. Blood 05/13/2024 11:5 9 AM INSURANCE EXECUTIVE 05/13/2024 12:56 PM INSURANCE EXECUTIVE us Sidney Westfall MD LAB BLOOD ORDERABLES Final Re sult [facility] [place] [address] * Differential, auto (05/13/2024 11:59 AM INSURANCE EXECUTIVE) Neutrophil abs 5.2 1.5 - 6.5 K/cumm Imm gran abs 0.0 0.0 - 0.1 K/cumm [facility] Lymphocyte abs 1.8 0.8 - 3.3 K/cumm [facility] Monocyte abs 0.7 0.2 - 0.8 K/cumm [facility] Eosinophil abs 0.1 0.0 - 0.5 K/cumm [facility] Basophil abs 0.0 0.0 - 0.1 K/cumm [facility] Neutrophil pct 65.7 % [facility] Comment: Interpretive Data Percent cell count reference ranges are not reported, since discordance with absolute values may lead to misinterpretation of CBC data. Current Interpretive Data was last revised on 2017. Imm gran pct 0.4 % [facility] Comment: Interpretive Data Percent cell count reference ranges are not reported, since discordance with absolute values may lead to misinterpretation of CBC data. Current Interpretive Data was last revised on 2017. Lymphocyte pct 22.9 % [facility] Comment: Interpretive Data Percent cell count reference ranges are not reported, since discordance with absolute values may lead to misinterpretation of CBC data. Current Interpretive Data was last revised on 2017. Monocyte pct 9.0 % [facility] Comment: Interpretive Data Percent cell count reference ranges are not reported, since discordance with absolute values may lead to misinterpretation of CBC data. Current Interpretive Data was last revised on 2017. Eosinophil pct 1.6 % [facility] Comment: Interpretive Data Percent cell count reference ranges are not reported, since discordance with absolute values may lead to misinterpretation of CBC data. Current Interpretive Data was last revised on 2017. Basophil pct 0.4 % [facility] Comment: Interpretive Data Percent cell count reference ranges are not reported, since discordance with absolute values may lead to misinterpretation of CBC data. Current Interpretive Data was last revised on 2017. Blood 05/13/2024 11:5 9 AM INSURANCE EXECUTIVE 05/13/2024 12:56 PM INSURANCE EXECUTIVE Sidney Westfall MD LAB BLOOD ORDERABLES Final Re sult Performing Organization Address [facility] de Phone Number [facility] [place] [address] * (ABNORMAL) CBC with auto differential (05/13/2024 11:59 AM INSURANCE EXECUTIVE) [facility] WBC 7.9 3.8 - 9.9 K/cumm Hgb 10.5(L) 11.9 - 15.5 g/dL [facility] Hct 32.2(L) 35.6 - 45.5 % [facility] Plt 342 150 - 400 K/cumm [facility] MPV 8.9(L) 9.1 - 12.3 fL [facility] RBC 3.67(L) 3.90 - 5.20 M/cumm [facility] MCV 87.7 81.3 - 96.4 fL [facility] MCH 28.6 27.1 - 33.3 pg [facility] MCHC 32.6 32.3 - 35.7 g/dL [facility] RDW CV 13.3 11.1 - 14.9 % [facility] RDW SD 43.0 35.7 - 48.1 fL [facility] NRBC abs 0.00 0.00 - 0.01 K/cumm [facility] Blood 05/13/2024 11:5 9 AM INSURANCE EXECUTIVE 05/13/2024 12:56 PM INSURANCE EXECUTIVE Sidney Westfall MD LAB BLOOD ORDERABLES Final Re sult Performing Organization Address [facility] Co de Phone Number [facility] [place] [address] * Albumin Creatinine Ratio, Urine (05/13/2024 11:59 AM INSURANCE EXECUTIVE) [facility] Albumin Ur <12.0 mg/L Comment: Interpretive Data No reference range established. Current interpretive data was last revised 2018. Creatinine Ur 25.7 mg/dL [facility] Comment: Interpretive Data No reference range established. Current interpretive data was last revised 2018. Albumin Creatinine Ratio, Ur See Comment 1 - 29 mg/g [facility] Comment:Unable to calculate Urine 05/13/2024 11:5 9 AM INSURANCE EXECUTIVE 05/13/2024 12:51 PM INSURANCE EXECUTIVE us Sidney Westfall MD LAB URINE ORDERABLES Final Re sult Performing Organization Address [facility] Co de Phone Number [facility] Department [place] [address] * TSH (05/13/2024 11:59 AM INSURANCE EXECUTIVE) Pathologist [facility] Thyroid Stimulating Hormone 3.01 0.30 - 4.20 mcIUnit/mL Blood 05/13/2024 11:5 9 AM INSURANCE EXECUTIVE 05/13/2024 12:56 PM INSURANCE EXECUTIVE us Sidney Westfall MD LAB BLOOD ORDERABLES Final Re sult Performing Organization Address [facility] de Phone Number [facility] Department [place] [address] * (ABNORMAL) Comprehensive metabolic panel (05/13/2024 11:59 AM INSURANCE EXECUTIVE) [facility] Sodium 137 135 - 145 mmol/L Potassium, pl 5.0(H) 3.3 - 4.9 mmol/L [facility] Chloride 102 97 - 110 mmol/L [facility] CO2 23 22 - 32 mmol/L [facility] Anion gap 12 2 - 15 mmol/L [facility] BUN 23 6 - 25 mg/dL [facility] Creatinine 1.06 0.60 - 1.10 mg/dL [facility] Glucose 136 70 - 199 mg/dL [facility] Comment: Interpretive Data Fasting glucose >/= [...] 2022. Calcium 10.2 8.5 - 10.3 mg/dL [facility] Bilirubin, total 0.3 0.1 - 1.2 mg/dL [facility] Protein, pl 7.9 6.5 - 8.5 g/dL [facility] Albumin 4.6 3.5 - 5.0 g/dL [facility] Alk phos 104 40 - 130 Units/L [facility] ALT <5(L) 7 - 45 Units/L [facility] AST 25 10 - 45 Units/L [facility] Blood 05/13/2024 11:5 9 AM INSURANCE EXECUTIVE 05/13/2024 12:56 PM INSURANCE EXECUTIVE us Sidney Westfall MD LAB BLOOD ORDERABLES Final Re sult [facility] [place] [address] * POCT hemoglobin A1c (02/18/2024 12:34 PM CDT) [facility] Hemoglobin A1C, POC 5.5 4.0 - 5.6 % Blood 02/18/2024 12:3 4 PM CDT us Sidney Westfall MD POINT OF CARE TEST ORDERABLES Final Result * Hepatitis C antibody Blood (11/06/2023 10:16 AM CDT) Pathologist [facility] Hep C Ab Non Reactive Non Reactive [facility] - 01 Comment: HCV antibody alone does not differentiate between previously resolved infection and active infection. Equivocal and Reactive HCV antibody results should be followed up with an HCV RNA test to support the diagnosis of active HCV infection. Blood 11/06/2023 10:1 6 AM CDT 11/06/2023 Narrative [facility] - 11/07/2023 11:13 AM CDT Performed at: - [facility] [address] [id number] [employer]: Abraham Bob PhD, Phone: [phone] Sidney Westfall MD LAB MICROBIOLOGY - GENERAL [...] Recently Relevant to Health Maintenance Insurance MEDICARE [facility] MEDICARE [facility] MEDICARE [facility] [place] [address] MEDICARE Advance Directives For more information, please contact: [phone] * Full Code (Latest Code Status on File) Date Activated Date Inactivated Comments 06/14/2024 1:09 PM 06/17/2024 8:37 PM * Full Code Date Activated Date Inactivated Comments 04/25/2022 10:48 PM 04/27/2022 3:40 PM Care Teams Milk Delivery Driver Relationship Specialty Start Date End Date Sidney Westfall MD [address] [facility] [address] [place] [address] PCP - General Internal Medicine 03/28/20
== END 2024-08-05 09:02 | disposition home or self-care (01) ==
LOC: CHSIMG 09:04
PROVIDERS: PCP Internal Medicine; Visit Provider Internal Medicine
DX: R92.8 Other abnormal and inconclusive findings on diagnostic imaging of breast (principal)
CPT/HCPCS: 76642; 77061; 77065; G0279

== ENCOUNTER 2024-08-20 15:06 | Outpatient (RCR) | payer MEDICARE, OTHER, SELFPAY ==
--- NOTE | 2024-08-20 16:28 | OPREHPOC ---
Outpatient Therapy Plan of Care This is a Multidisciplinary Plan of Care that may contain components documented by all disciplines (PT, OT, and ST.) PT Problem 1 PT Problem #1 Knowledge Deficit PT Goal 1 Goal / Goal Update Independent and compliant with HEP. Target Visit 8 PT Problem 2 PT Problem #2 Impaired Strength PT Goal 1 Goal / Goal Update Improve R hip strength to 5/5 for improved dynamic stability of the R knee. Target Visit 8 PT Problem 3 PT Problem #3 Impaired Functional Mobility PT Goal 1 Goal / Goal Update Pt to report 20% decrease in LEFS score. Pt to be able to climb her 4 stairs to get into the home reciprocally without knee pain. Target Visit 8 PT Problem 4 PT Problem #4 Pain PT Goal 1 Goal / Goal Update Pt to report 0/10 pain at rest. Pt to report no more than 3/10 pain with activity. Target Visit 8
--- NOTE | 2024-08-20 16:28 | PTOPEVAL1 ---
Assessment and note entered by Yaa Goldberg, PT Evaluation Information Assessment Status Evaluation ICD-10 Condition Codes (PT) Pain in right knee M25.561 Other ICD-10 Condition Codes ( S82.024A PT) Subjective Information Pt reports she fell down steps in May 2024 and fractured her R patella. After this she went to [place] in [place] for a month where she received therapy services and then went. She reports her pain 2/10 and increases to 5/10 when getting out of chairs and with changes in the weather. She also has a history of Parkinsons disease. Reported Pain Level Pain Score 2: Self Report Assessment PT Clinical Summary Mrs. Katerina Jones is a 74 yo female who enters the clinic with R knee pain following a nondisplaced longitudinal patellar fracture in May 2024. She demonstrates proximal lower extremity weakness and balance deficits that interfere with her ability to get out of chairs, climb stairs, and pick items up off the ground. She will benefit from skilled physical therapy intervention to improve on these deficits to be able to perform daily functional tasks with less pain. Plan of Care Interventions Electrical Stimulation,Gait Training,Hot Pack/Cold Pack,Manual Therapy,Neuro Re-education,Patient/ Caregiver Education,Therapeutic Activities, Therapeutic Exercise,Self-Care/Home Management PT Services Indicated Yes Treatment Frequency and 2x/week for 8 visits Duration These treatments will address the objective and functional deficits as defined above. The patient will be advanced safely and appropriately in order for the patient to progress towards his/her prior level of function. Additional exercises will be introduced and as well as a comprehensive home exercise program upon discharge, if needed, ?to ensure carryover of functional gains achieved in the clinic. This treatment plan has been reviewed and agreement upon by the patient.
--- NOTE | 2024-09-15 15:53 | OPREHPOC ---
Outpatient Therapy Plan of Care This is a Multidisciplinary Plan of Care that may contain components documented by all disciplines (PT, OT, and ST.) PT Problem 1 PT Problem #1 Knowledge Deficit PT Goal 1 Goal / Goal Update Independent and compliant with HEP. Target Visit 8 Progress Met PT Problem 2 PT Problem #2 Impaired Strength PT Goal 1 Goal / Goal Update Improve R hip strength to 5/5 for improved dynamic stability of the R knee. Target Visit 8 Progress Met PT Problem 3 PT Problem #3 Impaired Functional Mobility PT Goal 1 Goal / Goal Update Pt to report 20% decrease in LEFS score. Pt to be able to climb her 4 stairs to get into the home reciprocally without knee pain. Target Visit 8 Progress Met PT Problem 4 PT Problem #4 Pain PT Goal 1 Goal / Goal Update Pt to report 0/10 pain at rest. Pt to report no more than 3/10 pain with activity. Target Visit 8 Progress Met
--- NOTE | 2024-09-15 15:53 | PTOPDC ---
Assessment and note entered by Yaa Goldberg, PT Evaluation Information Assessment Status Discharge ICD-10 Condition Codes (PT) Pain in right knee M25.561 Other ICD-10 Condition Codes ( S82.024A PT) Onset 05/19/24 Subjective Information Pt reports her knee no longer gives her much pain and it no longer interferes with her daily activities. She reports she will get a very slight twinge but wouldn't call it pain. She's been independent with her HEP and is ready to d/c. Reported Pain Level Pain Score 0: Self Report Assessment PT Clinical Summary Mrs. Jones has attended 10 total skilled PT sessions for R knee pain following closed R patellar fracture in May 2024. Since beginning therapy she has made good improvements in her lower extremity strength and has little to no pain in the R knee. She has been independent with her HEP and has met all therapeutic goals set for her and will be discharged this date. Plan of Care PT Services Indicated No
== END 2024-09-15 16:34 | disposition home or self-care (01) ==
LOC: CHSPT 15:06
PROVIDERS: Visit Provider Nurse Practitioner Family
DX: S82.024A Nondisplaced longitudinal fracture of right patella, initial encounter for closed fracture (principal); M25.561 Pain in right knee
CPT/HCPCS: 97014; 97110; 97112; 97140; 97161; 97530; G0283

== ENCOUNTER 2024-11-16 12:09 | Outpatient (CLI) | payer MEDICARE, OTHER, SELFPAY ==
--- NOTE | ~2024-11-16 | DEXA_ITS ---
Bone Density Report Name: SARA LIAO Age: 74 Sex: Female Ethnicity: White Date of : 1950 Indication: postmenopausal; screening for osteoporosis; height loss; prior fracture; cancer; Referring Provider: GEORGINA, ELY Zambrano Study: Bone densitometry was performed. Exam Date: November 16, 2024 Accession number: [id number] Bone Density: Region BMD T-score Z-score Classification AP Spine(L1-L4) 0.881 -1.5 0.9 Osteopenia Femoral Neck (Left) 0.567 -2.5 -0.5 Osteoporosis Total Hip (Left) 0.821 -1.0 0.8 Normal Femoral Neck (Right) 0.514 -3.0 -1.0 Osteoporosis Total Hip (Right) 0.679 -2.2 -0.4 Osteopenia Femoral Neck Mean 0.540 -2.8 -0.7 Osteoporosis Total Hip Mean 0.750 -1.6 0.2 Osteopenia World Health Organization criteria for BMD impression classify patients as: Normal (T-score at or above -1.0), Osteopenia (T-score between -1.0 and -2.5), or Osteoporosis (T-score at or below -2.5). 10-year Fracture Risk: FRAX not reported because: Some T-score for Spine Total or Hip Total or Femoral Neck at or below -2.5 Clinical Information Provided by Patient: Has had a low trauma fracture Has used the following medications: multi Has the following medical conditions: Cancer Patient maximum height was 69 Menopause Age: 50 No regular weight bearing exercise Drinks caffeinated beverages Onset of menses at age 14 Number of children 1 Impression: The patient has established osteoporosis, based on the Right Femoral Neck T-score and the existence of a prior fracture. The patient has risk factors, including: previous fracture. Discussion: HIGH RISK OF FRACTURE. BONE DENSITY IS UNDESIRABLY LOW AT ONE OR MORE SKELETAL SITES, CONSISTENT WITH POSTMENOPAUSAL OSTEOPOROSIS. This patient's lowest T-score, in a patient who has previously fractured, meets the World Health Organization's (WHO) criteria for severe osteoporosis. In untreated patients, the risk of osteoporotic fracture increases approximately two-fold for each 1.0 SD decrease in T-score. Low bone density is not the only risk factor for fracture; also consider factors such as patient's age, frailty or poor health, risk of falling, risk of injury, previous osteoporotic fracture, family history of osteoporosis, cigarette smoking, low body weight, etc. Not everyone with low bone mineral density has osteoporosis; osteomalacia and other metabolic bone disorders should also be considered. Patients who have osteoporosis should be evaluated for specific diseases and conditions (secondary causes) that may cause or contribute to bone loss. The [place] Association of Clinical Endocrinologists (AACE) and National Osteoporosis Foundation (NOF) recommend pharmacologic intervention for all postmenopausal women whose T-score is in this range. The patient should follow a healthful lifestyle (good nutrition with adequate calcium and vitamin D, and appropriate weight-bearing exercise). Follow-Up: Consider a repeat BMD and Vertebral Fracture Assessment (VFA) exam in 2 years or sooner if medically necessary, to reassess this patient's status. Reported by: NEFTALI on 11/16/2024 12:40:00 PM. Reviewed, dictated and finalized at location A.
--- OUTSIDE RECORDS SUMMARY | 2024-11-16 12:13 | XMS_ITS | Encounter Summary ---
Author Organization [facility] Address [address] [place] [address] Care Team Providers Care Safety And Security Officer Name Role Phone Sidney Westfall MD Primary Care Provider [phone] Encounter Details Date Type Department Care Team (Late st Contact Info) Description 11/12/2024 Orders Only [facility] [address] [address] Michaela Cabrera, A [address] [place] [address] Social History Tobacco Use Types Packs/Day Years Used Date Smoking Tobacco: Former Cigarettes Q uit: 1998 AUDIT-C Answer Date Recorded Q1: How often do you have a drink containing alcohol? Never 08/10/2024 Q2: How many drinks containi ng alcohol do you have on a typical day when you are drinking? Patient does not drink Q3: How often do you have si x or more drinks on one occasion? 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 Gender Identity Female 11/17/2023 1:33 PM CDT Sexual Orientation Straight 11/17/2023 1: 33 PM CDT documented as of this encounter Plan of Treatment Not on file documented as of this encounter Visit Diagnoses Not on filedocumented in this encounter Discontinued Medications Medication Sig Discontinue Reason Start Date End Da te levothyroxine (SYNTHROID) 50 mcg tablet Take 1 tablet (50 mcg total) by mouth daily 08/27/2024 11/12/2024 documented as of this encounter Care Teams Safety And Security Officer Relationship Specialty Start Date End Date Sidney Westfall MD PCP - General Internal Medicine 03/28/20 documented as of this encounter
--- OUTSIDE RECORDS SUMMARY | 2024-11-16 12:13 | XMS_ITS | Encounter Summary ---
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 Gender Identity Female 11/17/2023 1:33 PM CDT Sexual Orientation Straight 11/17/2023 1: 33 PM CDT documented as of this encounter Plan of Treatment Scheduled Orders Name Type Priority Associated Diagnoses Orde r Schedule TSH Lab Routine Hypothyroidism, unspecified type Expected: 11/18/2024, Expires: 11/15/2025 T4, free Lab Routine Hypothyroidism, unspecified type Expected: 02/15/2025, Expires: 11/15/2025 documented as of this encounter Visit Diagnoses Diagnosis Hypothyroidism, unspecified type- Primary documented in this encounter Care Teams [employer] Relationship Specialty Start Date End Date Sidney Westfall MD PCP - General Internal Medicine 03/28/20 documented as of this encounter
--- OUTSIDE RECORDS SUMMARY | 2024-11-16 12:13 | XMS_ITS ---
Author Name Auto Generated, Auto Generated Organization [facility] ice Address [address] [place] [address] Phone [phone] Care Team Providers Care Director Of Digital Platforms Name Role Phone Yulissa Simpson Unavailable Lise Martinez Unavailable [phone] Functional Status Mental Status Allergies and Intolerances Encounters Immunizations Medications Problems Vital Signs Reason for Referral
--- OUTSIDE RECORDS SUMMARY | 2024-11-16 12:13 | XMS_ITS | Clinical Summary ---
Author Organization [facility] Virtual Care Address [address] [place] [phone] Phone Care Team Providers Care Food Stylist Name Role Phone Sidney Westfall MD Primary Care Provider [phone] Allergies No known active allergies Medications albuterol HFA (Proventil HFA) 90 mcg/actuation inhaler Inhale 2 puffs every 4 (four) hours as needed for wheezing or shortness of breath 3 each 1 10/24/19 23 Active pen needle, diabetic, safety 31 gauge x /16 needleIndications :Type 2 diabetes mellitus without complication, unspecified whether terminal operations supervisor insulin use (HCC) 45 Units daily inject 45 units daily 100 each 1 08/21/19 24 Active Contour Next Test Strips strip Test glucose bid 200 strip 1 02/20/20 24 Active lisinopriL (PRINIVIL,ZESTRIL ) 20 mg tabletIndications :Essential hypertension Take 1 tablet (20 mg total) by mouth daily 90 tablet 1 04/07/20 24 Active metFORMIN (GLUCOPHAGE) 1,000 mg tabletIndications :Type 2 diabetes mellitus without complication, without long-term current use of insulin (HCC) TAKE ONE TABLET BY MOUTH TWICE A DAY WITH A MEAL 180 tablet 3 04/28/20 24 Active therapeutic multivitamin (THERA) tablet Take 1 tablet by mouth daily Active ALPRAZolam (XANAX) 0.5 mg tablet Take 1 tablet (0.5 mg total) by mouth 2 (two) times a day as needed for anxiety for anxiety 60 tablet 2 08/14/19 25 Active gemfibroziL (LOPID) 600 mg tabletIndications :Hyperlipidemia, unspecified hyperlipidemia type Take 1 tablet (600 mg total) by mouth 2 (two) times a day 180 tablet 1 08/28/19 25 025 Active traZODone (DESYREL) 50 mg tablet Take 1 tablet (50 mg total) by mouth nightly as needed for sleep for sleep 90 tablet 1 09/21/19 25 Active carbidopa-levodop a (SINEMET) 25-100 mg per tablet Take 1 tablet by mouth 3 (three) times a day 270 tablet 10/01/19 25 025 Active levothyroxine (SYNTHROID) 50 mcg tablet Take 1 tablet (50 mcg total) by mouth daily 90 tablet 1 08/28/19 25 025 Discontinued Active Problems Problem Noted Date Diagnosed Date Closed sleeve fracture of right patella, initial encounter 06/14/2024 Parkinson'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, with fluctuating manifestations 11/06/2023 Assessment & Plan (11/11/2024 12:03 PM CDT): To see Neurology Anemia 11/04/2022 Vasovagal syncope 04/25/2022 Hypothyroidism 04/10/2021 Assessment & Plan (11/11/2024 12:02 PM CDT): Continue thyroid medication check T4 Assessment & Plan (02/18/2024 1:11 PM CDT): Recent labs normal Tremor 01/08/2021 Type 2 diabetes mellitus wit hout complication, without long-term current use of insulin 07/10/2020 Assessment & Plan (11/11/2024 12:02 PM CDT): Push for better diet and exercise check labs Assessment & Plan (02/18/2024 1:11 PM CDT): On metformin only. A1c 5.5% continue present Rx Assessment & Plan (07/10/2020 10:39 AM PIPE LAYER): A1c at target. Will continue present Rx. Check BMP and microalbumin Hyperlipidemia 07/10/2020 Assessment & Plan (11/11/2024 12:02 PM CDT): Lipid reviewed Assessment & Plan (02/18/2024 1:11 PM CDT): Doing well at this time Assessment & Plan (07/10/2020 10:39 AM PIPE LAYER): Lipid elevated. Consider ezetemibe in the future. Essential hypertension 07/10/2020 Assessment & Plan (11/11/2024 12:02 PM CDT): BP at target continue medication for target directed therapy Assessment & Plan (02/18/2024 1:11 PM CDT): BP at target Assessment & Plan (07/10/2020 10:39 AM PIPE LAYER): Blood pressure at target doing well Anxiety 07/10/2020 Assessment & Plan (07/10/2020 10:39 AM PIPE LAYER): Will increase alprazolam 2.5 b.i.d. Orthostatic hypotension Encounters Date Type Department Care Team Description 11/15/2024 Orders Only [facility] [address] [place] [address] [address] [place] [address] Michaela Cabrera RMA Hypothyroidism, unspecified type (Primary Dx) 11/12/2024 Orders Only [facility] [address] [place] [address] [address] [place] [address] Michaela Cabrera RMA 11/11/2024 11:00 AM CDT Office Visit [facility] [address] [place] [address] [address] [place] [phone] Sidney Westfall MD Post-menopausal (Primary Dx); Type 2 diabetes mellitus without complication, without long-term current use of insulin (HCC); Mixed hyperlipidemia; Essential hypertension; Hypothyroidism, unspecified type; Parkinson'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, with fluctuating manifestations (HCC) 11/11/2024 Results Follow-Up [facility] [address] [place] [phone] Sidney Westfall MD Comprehensive metabolic panel, TSH, T4, free 10/15/2024 8:15 AM CDT Office Visit [facility] [address] [place] [address] [address] [place] [address] Demarco Rainey NP Closed nondisplaced longitudinal fracture of right patella with routine healing, subsequent encounter (Primary Dx) 10/15/2024 7:40 AM CDT - 10/15/2024 11:59 PM CDT Hospital Encounter [facility] [address] [place] [address] [address] [place] [phone] Discharge Disposition: Discharge to home or self care 09/23/2024 Results Follow-Up [facility] [address] [place] [address] [address] [place] [phone] Sidney Westfall MD SCAN - RADIOLOGY/IMAGING 08/17/2024 Telephone [facility] [address] [place] [address] [address] [place] [phone] Demarco Rainey NP from Last 3 Months Immunizations Immunization Administration Dates Next Due COVID-19 mRNA (AppLift) 0.3 m L (30 mcg) vaccine (12 [...] on file Legal Sex Female 12:14 AM PIPE LAYER Gender Identity Female 11/17/2023 1:33 PM CDT Sexual Orientation Straight 11/17/2023 1: 33 PM CDT Obstetrics History Last Filed Vital Signs Vital Sign Reading Time Taken Comments Blood Pressure 155/82 11/11/2024 11:26 AM CDT Pulse 89 11/11/2024 11:26 AM CDT Temperature 36.3 C (97.3 F) 07/31/2024 8:12 PM CDT Respiratory Rate 18 07/31/2024 8:12 PM CDT Oxygen Saturation 100% 07/31/2024 8:12 PM CDT Inhaled Oxygen Concentration - - Weight 64.4 kg (142 lb) 11/11/2024 11:26 AM CDT Height 170.2 cm (5' 7) 11/11/2024 11:26 AM CDT Body Mass Index 22.24 11/11/2024 11:26 AM CDT Plan of Treatment Health Maintenance Due Date Last Done Comments Dilated Eye Exam 1950 Foot Exam 1950 DTaP/Tdap/Td Vaccine (1 - Tdap) 1961 Hepatitis B Screening 1968 Well Visit 65+ 2015 Covid-19 Vaccine (4 - 2023-2 5 season) 2024 03/08/2024, 04/01/2022, 04/09/2021 Osteoporosis Screening-Bone Density Scan 11/07/2024 11/07/2022 Influenza Vaccine (#1) 2025 4, 01/03/2023, 04/01/2022, Additional history exists Albumin Creatinine Ratio, Urine 05/13/2025 4, 11/06/2023 Hemoglobin A1C 05/13/2025 11/11/2024, 10/06/2023, 11/06/2023, Additional history exists Depression Screening 06/14/2025 06/14/2024, 04/25/2022, 04/25/2022 Fall Risk Assessment 06/17/2025 06/17/2024 eGFR 07/31/2025 07/31/2024, 05/20, 06/14/2024, Additional history exists Breast Cancer Screening-Mammogram 08/05/2025 025, 2022 Lipid Panel 11/11/2025 11/11/2024, 10/18, 04/26/2022, Additional history exists Colon Cancer Screening-Colonoscopy 06/09/2029 06/09/2019 Colon Cancer Screening-CT Colonography Discontinued 06/09/2019 Colon Cancer Screening-DNA Stool Discontinued 06/09/19 Colon Cancer Screening-FIT Discontinued 06/09/2019 Colon Cancer Screening-Sigmoidoscopy Discontinued 06/09/2019 Zoster Vaccine Completed 01/03/2023, 09/18/2022 Pneumococcal vaccine 65+ Completed 023, 09/18/2022, 03/01/2018 Hepatitis C Screening Completed 11/06/2023 Procedures Procedure Name Priority Date/Time Associated Diagnosis Comments T4, FREE Routine 11/11/2024 12:03 PM CDT Type 2 diabetes mellitus without complication, without long-term current use of insulin (HCC) Mixed hyperlipidemia Post-menopausal Essential hypertension Hypothyroidism, unspecified type Parkinson'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, with fluctuating manifestations (HCC) TSH Routine 11/11/2024 12:03 PM CDT Type 2 diabetes mellitus without complication, without long-term current use of insulin (HCC) Mixed hyperlipidemia Post-menopausal Essential hypertension Hypothyroidism, unspecified type Parkinson'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, with fluctuating manifestations (HCC) COMPREHENSIVE METABOLIC PANEL Routine 11/11/2024 12:03 PM CDT Type 2 diabetes mellitus without complication, without long-term current use of insulin (HCC) Mixed hyperlipidemia Post-menopausal Essential hypertension Hypothyroidism, unspecified type Parkinson'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, with fluctuating manifestations (HCC) POCT HEMOGLOBIN A1C Routine 11/11/2024 11:28 AM CDT Type 2 diabetes mellitus without complication, without long-term current use of insulin (HCC) POCT LIPID PANEL Routine 11/11/2024 11:27 AM CDT Mixed hyperlipidemia POCT GLUCOSE 53578 Routine 11/11/2024 11:27 AM CDT Type 2 diabetes mellitus without complication, without long-term current use of insulin (HCC) XR KNEE RIGHT 3 VIEWS Schedule Routine, Read Routine (OP Routine) 10/15/2024 8:20 AM CDT Closed nondisplaced longitudinal fracture of right patella with routine healing, subsequent encounter EGFR STAT 07/31/2024 8:21 PM CDT ALBUMIN CREATININE RATIO, URINE Routine 05/13/2024 11:59 AM PIPE LAYER Type 2 diabetes mellitus without complication, without long-term current use of insulin (HCC) Mixed hyperlipidemia Essential hypertension Parkinson'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, with fluctuating manifestations (HCC) Anemia, unspecified type HEPATITIS C ANTIBODY Routine 11/06/2023 10:16 AM CDT Type 2 diabetes mellitus without complication, unspecified whether terminal operations supervisor insulin use (HCC) Mixed hyperlipidemia Parkinson'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, with fluctuating manifestations (HCC) Anemia, unspecified type Hypothyroidism, unspecified type Essential hypertension Encounter for hepatitis C screening test for low risk patient COLONOSCOPY Routine 06/09/2019 from Last 3 Months or Most Recently Relevant to Health Maintenance Results * (ABNORMAL) TSH (11/11/2024 12:03 PM CDT) TSH 4.92(H) 0.27 - 4.20 uIU/mL [facility] Blood 11/11/2024 12:0 3 PM CDT 11/11/2024 12:19 PM CDT Sidney Westfall MD LAB BLOOD ORDERABLES Final Re sult Performing Organization Address [facility]/ZIP Co de Phone Number LUISACA MARCUSDA [address] [place] [address] * T4, free (11/11/2024 12:03 PM CDT) Free T4 0.93 0.93 - 1.70 ng/dL [facility] Blood 11/11/2024 12:0 3 PM CDT 11/11/2024 12:19 PM CDT Sidney Westfall MD LAB BLOOD ORDERABLES Final Re sult Performing Organization Address [facility]/ZIP Co de Phone Number [facility] [address] [place] [address] * (ABNORMAL) Comprehensive metabolic panel (11/11/2024 12:03 PM CDT) Glucose 112 74 - 200 mg/dL [facility] BUN 25(H) 18 - 23 mg/dL [facility] Creatinine 1.1 0.7 - 1.3 mg/dL [facility] BUN/Creat Ratio 24 Ratio [facility] Bilirubin, Total 0.2 0.0 - 1.2 mg/dL [facility] AST (SGOT) 17 0 - 32 U/L [facility] ALT (SGPT) 4(L) 10 - 35 U/L [facility] Alkaline phosphatase 106(H) 35 - 104 U/L [facility] Calcium 10.0 8.8 - 10.2 mg/dL [facility] Sodium 137 135 - 145 mEq/L [facility] Potassium 5.1 3.5 - 5.1 mEq/L [facility] Chloride 104 98 - 107 mEq/L [facility] CO2 18.4(L) 22.0 - 32.0 mEq/L [facility] Anion Gap 14(H) 3 - 12 mEq/L [facility] Total Protein 7.1 6.0 - 8.1 g/dL [facility] Albumin 4.5 3.5 - 5.2 g/dL [facility] Globulin 2.6 g/dL [facility] Albumin/Globulin 1.7 Ratio [facility] eGFR 55.20 [facility] Blood 11/11/2024 12:0 3 PM CDT 11/11/2024 12:19 PM CDT us Sidney Westfall MD LAB BLOOD ORDERABLES Final Re sult [facility]NEID[facility] [address] [phone] * (ABNORMAL) POCT hemoglobin A1c (11/11/2024 11:28 AM CDT) Hemoglobin A1C, POC 7.1(A) 4.0 - 5.6 % Blood 11/11/2024 11:2 8 AM CDT us Sidney Westfall MD POINT OF CARE TEST ORDERABLES Final Result * POCT glucose (11/11/2024 11:27 AM CDT) Glucose Blood, POC 99 Normal Fasting 70 - 100, Random <200 mg/dL Blood 11/11/2024 11:2 7 AM CDT Sidney Westfall MD POINT OF CARE TEST ORDERABLES Final Result * (ABNORMAL) POCT lipid panel (11/11/2024 11:27 AM CDT) Cholesterol, POC 239 <200 MG/DL HDL, POC 50 >=40 mg/dL Triglycerides, POC 143 <=149 mg/dL LDL Cholesterol POC 161(A) <=129 mg/dL Chol/HDL Ratio, POC 4.8 NONE Non-HDL Cholesterol, POC 189 NONE mg/dL Cholesterol Total, POC 239(A) 30 - 199 mg/dL Capillary blood 11/11/2024 1 1:27 AM CDT Sidney Westfall MD POINT OF CARE TEST ORDERABLES Final Result * XR Knee Right 3 Views (10/15/2024 8:20 AM CDT) Anatomical Region Laterality Modality Lower Extremities, Knee Right Digital Radiography Narrative 10/15/2024 8:20 AM CDT X-rays of the right knee are reviewed and compared to previous knee x-rays. Essentially healed Lateral facet patella fracture again seen. Demarco Rainey [employer]S MANAGER IMG XR PROCEDURES Final Result * (ABNORMAL) eGFR (07/31/2024 [...] 8:21 PM CDT 07/31/2024 8:24 PM CDT Kenneth Low MD LAB BLOOD ORDERABLES Final Re sult [facility] Department [place] [address] * Albumin Creatinine Ratio, Urine (05/13/2024 11:59 AM PIPE LAYER) Albumin Ur <12.0 mg/L Comment: Interpretive Data No reference range established. Current interpretive data was last revised 2018. Creatinine Ur 25.7 mg/dL [facility] Comment: Interpretive Data No reference range established. Current interpretive data was last revised 2018. Albumin Creatinine Ratio, Ur See Comment 1 - 29 mg/g [facility] Comment:Unable to calculate Urine 05/13/2024 11:5 9 AM PIPE LAYER 05/13/2024 12:51 PM PIPE LAYER Sidney Westfall MD LAB URINE ORDERABLES Final Re sult Performing Organization Address City/[facility]/ZIP Co de Phone Number [facility] Department [place] [address] * Hepatitis C antibody Blood (11/06/2023 10:16 [...] - 11/07/2023 11:13 AM CDT Performed at: [address] [id number] Unemployment Insurance Director: Abraham Bob PhD, Phone: [phone] us Sidney Westfall MD LAB MICROBIOLOGY - GENERAL OR DERABLES Final Result [facility] * Colonoscopy (06/09/2019) Anatomical Region Laterality Modality Other Narrative 06/09/2019 Pt reports she had granite in 2019 she says it was normal us Historical Provider ENDOSCOPY PROCEDURES Jenny l Result from Last 3 Months or Most Recently Relevant to Health Maintenance Insurance MEDICARE [facility] [place] [place] [address] [place] [address] [place] [address] MEDICARE Advance Directives For more information, please contact: [phone] * Full Code (Latest Code Status on File) Date Activated Date Inactivated Comments 06/14/2024 1:09 PM 06/17/2024 8:37 PM * Full Code Date Activated Date Inactivated Comments 04/25/2022 10:48 PM 04/27/2022 3:40 PM Care Teams Food Stylist Relationship Specialty Start Date End Date Sidney Westfall MD PCP - General Internal Medicine 03/28/20
--- OUTSIDE RECORDS SUMMARY | 2024-11-16 12:13 | XMS_ITS ---
Author Name Auto Generated, Auto Generated Organization [employer] [facility] Address [address] [place] [address] Phone [phone] Care Team Providers Care Supervisor Winding Department Name Role Phone Yulissa Simpson Unavailable [phone] Lise Martinez Unavailable Functional Status No Results Mental Status No Results Allergies and Intolerances Name Onset Date Reaction Severity No Known Allergies (Allergy) FriJun 17 17:44:00 EST 2024 Encounters Program Name Primary Diagnosis Admission Date/Time Dis charge Date/Time Assisted Care Facility Inter[facility] Term [facility] Unit FriJun 17 12:15:00 2024Jul 20 11:20:00 2024 Immunizations Name Dates Status TST-PPD intradermal FriJun 18 01:00:00 2024 Completed TST-PPD intradermal FriJun 25 01:00:00 2024 Completed TST-PPD intradermal FriJun 21 01:00:00 2024 Completed TST-PPD intradermal FriJun 28 01:00:00 2024 Completed Medications Medication Directions Start Date End Date Lidocaine Pain Relief 4 % topical patch 1 patch ADHESIVE PATCH, MEDICATED Topical 2 Times Daily Indication: pain apply patch to lower back on in am off at hs FriJul 15 09:00:00 2024Jul 20 01:00:00 EST 2024 acetaminophen 325 mg tablet 2 Tablets TABLET Oral PRN Every 4 Hours Indication: Pain/Fever FriJul 06 12:30:00 2024Jul 20 01:00:00 2024 acetaminophen 325 mg tablet 2 TABLET Oral PRN (Max 6 Doses) for 1 Day Indication: Pain Sun Jun 16 09:00:00 2024 Mon Jul 05 08:59:00 EST 2024 traZODone 50 mg tablet 1 TABLET TABLET O ral PRN Hour Of Sleep for 90 Days Indication: Insomnia FriJun 18 22:47:00 2024Jul 20 01:00:00 2024 ALPRAZolam 0.5 mg tablet 1 TABLET TABLET Oral PRN 2 Times Daily for 90 Days Indication: ANXIETY FriJun 18 22:49:00 EST 2024Jul 20 01:00:00 EST 2024 TubersoL 5 tub. unit/0.1 mL intradermal injection solution Read Results VIAL (ML) Other 1 Time Weekly for 2 Weeks Indication: . Read results between 48-72 hours after 1st and 2nd (1 week apart). Any reading of 10mm or greater results in a positive test, an x-ray will need to be ordered as a follow up. FriJun 21 09:00:00 2024Jul 05 08:59:00 EST 2024 TubersoL 5 tub. unit/0.1 mL intradermal injection solution 0.1 ml VIAL (ML) Intradermal 1 Time Weekly for 2 Weeks Indication: . 1st injection on admission, then one week after. Read between 48 and 72 hours FriJun 18 09:00:00 2024Jul 02 08:59:00 EST 2024 ALPRAZolam 0.5 mg tablet 1 TABLET TABLET Oral PRN 2 Times Daily for 14 Days Indication: ANXIETY FriJun 18 15:02:00 2024Jun 22 22:50:00 EST 2024 traZODone 50 mg tablet 1 TABLET TABLET O ral PRN Hour Of Sleep Indication: SLEEP FriJun 18 15:05:00 2024Jun 22 22:49:00 EST 2024 HYDROcodone 5 mg-acetaminophen 325 mg tablet 1 TABLET TABLET Oral PRN Every 8 Hours Indication: PAIN *DO NOT EXCEED 3GM/DAY ACETAMINOPHEN FROM ALL SOURCES* FriJun 18 23:00:00 EST 2024Jul 20 01:00:00 EST 2024 HYDROcodone 5 mg-acetaminophen 325 mg tablet 1 TABLET TABLET Oral PRN 1 Time Daily for 7 Days Indication: PAIN *DO NOT EXCEED 3GM/DAY ACETAMINOPHEN FROM ALL SOURCES* FriJun 17 16:00:00 EST 2024Jun 18 22:30:00 EST 2024 albuterol sulfate HFA 90 mcg/actuation aerosol inhaler 2 PUFFS HFA AEROSOL WITH ADAPTER (GRAM) Inhalation PRN Every 4 Hours Indication: WHEEZING/SHORTNESS OF BREATH FriJun 17 16:00:00 EST 2024Jul 20 01:00:00 EST 2024 ALPRAZolam 0.5 mg tablet 1 TABLET TABLET Oral PRN 2 Times Daily Indication: ANXIETY FriJun 17 16:00:00 EST 2024Jun 18 15:04:00 EST 2024 carbidopa 25 mg-levodopa 100 mg tablet 1 TABLET TABLET Oral 3 Times Daily Indication: tremor FriJun 17 16:00:00 EST 2024Jul 20 01:00:00 EST 2024 gemfibroziL 600 mg tablet 1 TABLET TABLE T Oral 2 Times Daily Indication: DM FriJun 17 16:00:00 EST 2024Jul 20 01:00:00 EST 2024 levothyroxine 50 mcg tablet 1 TABLET TABLET Oral 1 Time Daily Indication: hypothyroidism FriJun 17 16:00:00 EST 2024Jul 20 01:00:00 EST 2024 lisinopriL 20 mg tablet 1 TABLET TABLET Oral 1 Time Daily Indication: htn FriJun 17 16:00:00 EST 2024Jul 20 01:00:00 EST 2024 metFORMIN 1,000 mg tablet 1 TABLET TABLE T Oral 2 Times Daily Indication: dm TAKE WITH A MEAL FriJun 17 16:00:00 2024Jul 20 01:00:00 EST 2024 traZODone 50 mg tablet 1 TABLET TABLET O ral PRN Hour Of Sleep Indication: SLEEP FriJun 17 16:00:00 2024Jun 18 15:06:00 EST 2024 Thera-Tabs tablet 1 TABLET TABLET Oral 1 Time Daily Indication: vitamin FriJun 17 16:00:00 EST 2024Jul 20 01:00:00 EST 2024 Problems Active Concerns * Other fracture of right patella, subsequent encounter for closed fracture with routine healing* Code: * Start Date: FriJun 17 00:00:00 EST 2024 * End Date: * Text: * Parkinson'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, with fluctuations* Code: * Start Date: FriJun 17 00:00:00 EST 2024 * End Date: * Text: * Hyperlipidemia, unspecified* Code: * Start Date: FriJun 17 00:00:00 EST 2024 * End Date: * Text: * Hypothyroidism, unspecified* Code: * Start Date: FriJun 17 00:00:00 2024 * End Date: * Text: * Anemia, unspecified* Code: * Start Date: FriJun 17 00:00:00 2024 * End Date: * Text: * Effusion, right knee* Code: * Start Date: FriJun 17 00:00:00 2024 * End Date: * Text: * Unilateral primary osteoarthritis, right knee* Code: * Start Date: FriJun 17 00:00:00 2024 * End Date: * Text: * Other chondrocalcinosis, right knee* Code: * Start Date: FriJun 17 00:00:00 2024 * End Date: * Text: * Unspecified fall, subsequent encounter* Code: * Start Date: FriJun 17 00:00:00 2024 * End Date: * Text: * Personal history of nicotine dependence* Code: * Start Date: FriJun 17 00:00:00 2024 * End Date: * Text: * Insomnia, unspecified* Code: * Start Date: FriJun 17 00:00:00 2024 * End Date: * Text: * USP (current) use of oral hypoglycemic drugs* Code: * Start Date: FriJun 17 00:00:00 2024 * End Date: * Text: * 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* Code: * Start Date: FriJun 17 00:00:00 2024 * End Date: * Text: * Generalized anxiety disorder* Code: * Start Date: FriJun 17 00:00:00 2024 * End Date: * Text: * Hypertensive chronic kidney disease with stage 1 through stage 4 chronic kidney disease, or unspecified chronic kidney disease* Code: * Start Date: FriJun 17 00:00:00 2024 * End Date: * Text: * Chronic kidney disease, unspecified* Code: * Start Date: FriJun 17 00:00:00 2024 * End Date: * Text: * Type 2 diabetes mellitus with diabetic chronic kidney disease* Code: * Start Date: FriJun 17 00:00:00 2024 * End Date: * Text: * [facility]_Social Services- Katerina's wishes will be followed (Advanced Directive/Code Status).* Code: * Start Date: FriJun 28 00:00:00 EST 2025 * End Date: * Text: [facility]_Social ServicesDann Borges's wishes will be followed (Advanced Directive/Code Status). * [facility]Social ServicesDann Borges will be involved in goal development to the best of his or her ability.* Code: * Start Date: FriJun 28 00:00:00 2024 * End Date: * Text: [facility]Social ServicesDann Borges will be involved in goal development to the best of his or her ability. * [facility]_Social ServicesDann Borges has family/friends who are supportive.* Code: * Start Date: FriJun 28 00:00:00 EST 2024 * End Date: * Text: [facility]_Social ServicesDann Borges has family/friends who are supportive. * [facility]_Social ServicesDann Borges's mobility level is different than prior level due to current medical condition.* Code: * Start Date: FriJun 28 00::00 2024 * End Date: * Text: [facility]_Social ServicesDann Borges's mobility level is different than prior level due to current medical condition. * [facility]_Social ServicesDann Borges will be involved in discharge planning.* Code: * Start Date: FriJun 28 00::00 EST 2024 * End Date: * Text: [facility]_Social ServicesDann Borges will be involved in discharge planning. * [facility]_Psychotropic Drug Use - Use of psychotropic drug use places Katerina at risk for drug-related sideeffects.* Code: * Start Date: FriJun 30 00:00:00 EST 2024 * End Date: * Text: [facility]Psychotropic Drug Use - Use of psychotropic drug use places Katerina at risk for drug-related side effects. * [facility]_Falls - Katerina is at risk for falls/injury as evidenced by: history of falls, cognitive status/behavior, vision status, continence, mobility, balance.* Code: * Start Date: FriJun 30 00:00:00 EST 2024 * End Date: * Text: [facility]_Falls - Katerina is at risk for falls/injury as evidenced by: history of falls, cognitive status/behavior, vision status, continence, mobility, balance. * [facility]_Pain - Katerina is experiencing pain or is at high risk for pain.* Code: * Start Date: FriJun 30 00:00:00 2024 * End Date: * Text: [facility]_Pain - Katerina is experiencing pain or is at high risk for pain. * [facility]_Skin Integrity - (Potential Alteration of)- Katerina is at risk for developing impaired skin integrity.* Code: * Start Date: FriJun 30 00:00:00 2024 * End Date: * Text: [facility]_Skin Integrity - (Potential Alteration of)- Katerina is at risk for developing impaired skinintegrity. * [facility]_ADLs - Katerina has ADL selfcare deficit related to decreased mobility and muscle weakness* Code: * Start Date: FriJun 30 00:00:00 EST 2024 * End Date: * Text: [facility]_ADLs Dann Borges has ADL selfcare deficit related to decreased mobility and muscle weakness Resolved Concerns * Problem Type 2 diabetes mellitus without complications* Code: * Start Date: FriJun 17 00:00:00 2024 * End Date: FriJun 24 00:00:00 EST 2024 * Problem Essential (primary) hypertension* Code: * Start Date: FriJun 17 00:00:00 2024 * End Date: FriJun 24 00:00:00 EST 2024 * Problem Anxiety disorder, unspecified* Code: * Start Date: FriJun 17 00:00:00 2024 * End Date: FriJun 24 00:00:00 2024 Vital Signs Vital Sign Measurement Date Body weight 146.80 [lb_av] FriJul 20 14:40 :36 EST 2024 Systolic Blood Pressure 103.00 mm[Hg] FriJul 20 09:56:04 EST 2024 Diastolic Blood Pressure 63.00 mm[Hg] FriJul 20 09:56:04 EST 2024 Pulse Oximetry 97.00 % FriJul 20 09:56 :04 2024 Heart Rate 89.00 /min FriJul 20 09:56 :04 2024 Body temperature 98.20 [degF] FriJul 20 09:5 6:04 2024 Respiratory rate 18.00 /min FriJul 20 09:5 6:04 2024 Systolic Blood Pressure 103.00 mm[Hg] FriJul 20 08:46:30 EST 2024 Diastolic Blood Pressure 63.00 mm[Hg] FriJul 20 08:46:30 EST 2024 Systolic Blood Pressure 109.00 mm[Hg] FriJul 20 01:56:28 EST 2024 Diastolic Blood Pressure 62.00 mm[Hg] FriJul 20 01:56:28 EST 2024 Pulse Oximetry 97.00 % FriJul 20 01:56 :28 EST 2024 Heart Rate 78.00 /min FriJul 20 01:56 :28 EST 2024 Body temperature 97.80 [degF] FriJul 20 01:5 6:28 EST 2024 Respiratory rate 18.00 /min FriJul 20 01:5 6:28 EST 2024 Body weight 146.80 [lb_av] FriJul 19 17:28 :42 EST 2024 Systolic Blood Pressure 125.00 mm[Hg] FriJul 19 09:29:27 EST 2024 Diastolic Blood Pressure 61.00 mm[Hg] FriJul 19 09:29:27 EST 2024 Systolic Blood Pressure 125.00 mm[Hg] FriJul 19 08:50:02 EST 2024 Diastolic Blood Pressure 61.00 mm[Hg] FriJul 19 08:50:02 EST 2024 Pulse Oximetry 98.00 % FriJul 19 08:50 :02 EST 2024 Heart Rate 80.00 /min FriJul 19 08:50 :02 EST 2024 Body temperature 97.40 [degF] FriJul 19 08:5 0:02 EST 2024 Respiratory rate 18.00 /min FriJul 19 08:5 0:02 EST 2024 Systolic Blood Pressure 101.00 mm[Hg] FriJul 18 22:56:29 EST 2024 Diastolic Blood Pressure 65.00 mm[Hg] FriJul 18 22:56:29 EST 2024 Pulse Oximetry 95.00 % FriJul 18 22:56 :29 EST 2024 Heart Rate 86.00 /min FriJul 18 22:56 :29 EST 2024 Body temperature 97.80 [degF] FriJul 18 22:5 6:29 EST 2024 Respiratory rate 18.00 /min FriJul 18 22:5 6:29 EST 2024 Body weight 147.00 [lb_av] FriJul 18 10:06 :12 EST 2024 Systolic Blood Pressure 138.00 mm[Hg] FriJul 18 08:39:30 EST 2024 Diastolic Blood Pressure 68.00 mm[Hg] FriJul 18 08:39:30 EST 2024 Pulse Oximetry 94.00 % FriJul 18 08:39 :30 EST 2024 Heart Rate 100.00 /min FriJul 18 08:39 :30 EST 2024 Body temperature 98.30 [degF] FriJul 18 08:3 9:30 EST 2024 Respiratory rate 20.00 /min FriJul 18 08:3 9:30 EST 2024 Systolic Blood Pressure 120.00 mm[Hg] FriJul 18 08:16:28 EST 2024 Diastolic Blood Pressure 66.00 mm[Hg] FriJul 18 08:16:28 EST 2024 Systolic Blood Pressure 120.00 mm[Hg] FriJul 18 04:00:28 EST 2024 Diastolic Blood Pressure 66.00 mm[Hg] FriJul 18 04:00:28 EST 2024 Pulse Oximetry 95.00 % FriJul 18 04:00 :28 EST 2024 Heart Rate 94.00 /min FriJul 18 04:00 :28 EST 2024 Body temperature 98.50 [degF] FriJul 18 04:0 0:28 EST 2024 Respiratory rate 16.00 /min FriJul 18 04:0 0:28 EST 2024 Systolic Blood Pressure 114.00 mm[Hg] Sat Jul 17 10:51:22 EST 2024 Diastolic Blood Pressure 60.00 mm[Hg] Sat Jul 17 10:51:22 EST 2024 Pulse Oximetry 95.00 % Sat Jul 17 10:51 :22 EST 2024 Body weight 147.00 [lb_av] FriJul 17 10:51 :22 EST 2024 Heart Rate 90.00 /min Sat Jul 17 10:51 :22 EST 2024 Body temperature 98.00 [degF] Sat Jul 17 10:5 1:22 EST 2024 Respiratory rate 20.00 /min Sat Jul 17 10:5 1:22 EST 2024 Systolic Blood Pressure 114.00 mm[Hg] Sat Jul 17 09:29:43 EST 2024 Diastolic Blood Pressure 60.00 mm[Hg] Sat Jul 17 09:29:43 EST 2024 Systolic Blood Pressure 96.00 mm[Hg] Sat Jul 17 00:31:31 EST 2024 Diastolic Blood Pressure 51.00 mm[Hg] Sat Jul 17 00:31:31 EST 2024 Pulse Oximetry 96.00 % Sat Jul 17 00:31 :31 EST 2024 Heart Rate 89.00 /min Sat Jul 17 00:31 :31 EST 2024 Body temperature 97.80 [degF] Sat Jul 17 00:3 1:31 EST 2024 Respiratory rate 18.00 /min FriJul 17 00:3 1:31 EST 2024 Body weight 147.20 [lb_av] Frib 17:54 :42 EST 2024 Systolic Blood Pressure 136.00 mm[Hg] Fri Feb 09:16:02 EST 2024 Diastolic Blood Pressure 7969.00 mm[Hg] Fri Feb 09:16:02 EST 2024 Systolic Blood Pressure 136.00 mm[Hg] Fri Feb 09:16:02 EST 2024 Diastolic Blood Pressure 79.00 mm[Hg] Fri Feb 09:16:02 EST 2024 Pulse Oximetry 96.00 % Fri Feb 09:16 :02 EST 2024 Heart Rate 80.00 /min Fri Feb 09:16 :02 EST 2024 Body temperature 97.80 [degF] Fri Feb 09:1 6:02 EST 2024 Respiratory rate 18.00 /min Fri Feb 09:1 6:02 EST 2024 Systolic Blood Pressure 126.00 mm[Hg] Jennifer Feb 27 23:15:34 EST 2024 Diastolic Blood Pressure 66.00 mm[Hg] Jennifer Feb 27 23:15:34 EST 2024 Pulse Oximetry 98.00 % Jennifer Feb 27 23:15 :34 EST 2024 Heart Rate 89.00 /min Jennifer Feb 23:15 :34 EST 2024 Body temperature 97.80 [degF] Jennifer Feb 23:1 5:34 EST 2024 Respiratory rate 18.00 /min Jennifer Feb 23:1 5:34 EST 2024 Body weight 147.40 [lb_av] Jennifer Feb 27 16:20 :04 EST 2024 Systolic Blood Pressure 110.00 mm[Hg] Jennifer Feb 27 09:10:11 EST 2024 Diastolic Blood Pressure 59.00 mm[Hg] Jennifer Feb 27 09:10:11 EST 2024 Systolic Blood Pressure 110.00 mm[Hg] Jennifer Feb 27 09:10:11 EST 2024 Diastolic Blood Pressure 59.00 mm[Hg] Jennifer Feb 27 09:10:11 EST 2024 Pulse Oximetry 98.00 % Jennifer Feb 27 09:10 :11 EST 2024 Heart Rate 88.00 /min Jennifer Feb 27 09:10 :11 EST 5 Body temperature 97.70 [degF] Jennifer Feb 27 09:1 0:11 EST 5 Respiratory rate 18.00 /min Jennifer Feb 27 09:1 0:11 EST 5 Systolic Blood Pressure 114.00 mm[Hg] Wed Feb 26 22:12:45 EST 5 Diastolic Blood Pressure 59.00 mm[Hg] Wed Feb 26 22:12:45 EST 2024 Pulse Oximetry 98.00 % Wed Feb 26 22:12 :45 EST 5 Heart Rate 78.00 /min Wed Feb 26 22:12 :45 EST 5 Body temperature 98.20 [degF] Wed Feb 26 22:1 2:45 EST 5 Respiratory rate 18.00 /min Wed Feb 26 22:1 2:45 EST 5 Systolic Blood Pressure 113.00 mm[Hg] Wed Feb 26 11:24:48 EST 5 Diastolic Blood Pressure 71.00 mm[Hg] Wed Feb 26 11:24:48 EST 2024 Pulse Oximetry 97.00 % Wed Feb 26 11:24 :48 EST 5 Body weight 145.20 [lb_av] Wed Feb 26 11:24 :48 EST 5 Heart Rate 93.00 /min Wed Feb 26 11:24 :48 EST 5 Body temperature 98.20 [degF] Wed Feb 26 11:2 4:48 EST 5 Respiratory rate 18.00 /min Wed Feb 26 11:2 4:48 EST 5 Systolic Blood Pressure 113.00 mm[Hg] Wed Feb 26 09:42:15 EST 5 Diastolic Blood Pressure 71.00 mm[Hg] Wed Feb 26 09:42:15 EST 2025 Systolic Blood Pressure 139.00 mm[Hg] Wed Feb 26 00:08:53 EST 5 Diastolic Blood Pressure 70.00 mm[Hg] Wed Feb 26 00:08:53 EST 5 Pulse Oximetry 98.00 % Wed Feb 26 00:08 :53 EST 5 Heart Rate 92.00 /min Wed Feb 26 00:08 :53 EST 5 Body temperature 97.80 [degF] Wed Feb 26 00:0 8:53 EST 5 Respiratory rate 20.00 /min Wed Feb 26 00:0 8:53 EST 5 Systolic Blood Pressure 130.00 mm[Hg] Tue Feb 25 08:58:15 EST 2024 Diastolic Blood Pressure 69.00 mm[Hg] Fri Feb 08:58:15 EST 2024 Systolic Blood Pressure 130.00 mm[Hg] Fri Feb 08:39:06 EST 2024 Diastolic Blood Pressure 69.00 mm[Hg] Fri Feb 08:39:06 EST 2024 Pulse Oximetry 97.00 % Fri Feb 08:39 :06 EST 2024 Body weight 143.80 [lb_av] Fri Feb 08:39 :06 EST 2024 Heart Rate 79.00 /min Fri Feb 08:39 :06 EST 2024 Body temperature 97.80 [degF] Fri Feb 08:3 9:06 EST 2024 Respiratory rate 18.00 /min Fri Feb 08:3 9:06 EST 2024 Systolic Blood Pressure 142.00 mm[Hg] Frib 00:35:12 EST 2024 Diastolic Blood Pressure 77.00 mm[Hg] Fri Feb 00:35:12 EST 2024 Pulse Oximetry 98.00 % Frib 00:35 :12 EST 2024 Heart Rate 83.00 /min Frib 00:35 :12 EST 2024 Body temperature 98.30 [degF] Fri Feb 00:3 5:12 EST 2024 Respiratory rate 20.00 /min Frib 00:3 5:12 EST 2024 Systolic Blood Pressure 129.00 mm[Hg] Frib 11:07:57 EST 2024 Diastolic Blood Pressure 70.00 mm[Hg] Frib 11:07:57 EST 2024 Pulse Oximetry 97.00 % Frib 11:07 :57 EST 2024 Body weight 144.40 [lb_av] Frib 24 11:07 :57 EST 2024 Heart Rate 82.00 /min Fri Feb 11:07 :57 EST 2024 Body temperature 97.80 [degF] Fri Feb 11:0 7:57 EST 5 Respiratory rate 20.00 /min Fri Feb 24 11:0 7:57 EST 2024 Systolic Blood Pressure 129.00 mm[Hg] Fri Feb 24 08:41:55 EST 2024 Diastolic Blood Pressure 70.00 mm[Hg] Fri Feb 24 08:41:55 EST 2024 Systolic Blood Pressure 108.00 mm[Hg] Mon Feb 24 00:10:54 EST 2024 Diastolic Blood Pressure 62.00 mm[Hg] Mon Feb 24 00:10:54 EST 2024 Pulse Oximetry 97.00 % Mon Feb 24 00:10 :54 EST 5 Heart Rate 92.00 /min Mon Feb 24 00:10 :54 EST 5 Body temperature 97.80 [degF] Mon Feb 24 00:1 0:54 EST 5 Respiratory rate 18.00 /min Mon Feb 24 00:1 0:54 EST 5 Body weight 145.00 [lb_av] Sun Feb 23 14:36 :46 EST 2024 Systolic Blood Pressure 115.00 mm[Hg] Sun Feb 23 11:10:55 EST 2024 Diastolic Blood Pressure 76.00 mm[Hg] Sun Feb 23 11:10:55 EST 2024 Pulse Oximetry 95.00 % Sun Feb 23 11:10 :55 EST 2024 Heart Rate 88.00 /min Sun Feb 23 11:10 :55 EST 2024 Body temperature 97.90 [degF] Sun Feb 23 11:1 0:55 EST 5 Respiratory rate 18.00 /min Sun Feb 23 11:1 0:55 EST 2024 Systolic Blood Pressure 115.00 mm[Hg] Sun Feb 23 10:17:33 EST 5 Diastolic Blood Pressure 76.00 mm[Hg] Sun Feb 23 10:17:33 EST 5 Systolic Blood Pressure 118.00 mm[Hg] Sun Feb 23 00:26:37 EST 5 Diastolic Blood Pressure 61.00 mm[Hg] Sun Feb 23 00:26:37 EST 5 Pulse Oximetry 96.00 % Sun Feb 23 00:26 :37 EST 5 Heart Rate 91.00 /min Sun Feb 23 00:26 :37 EST 2024 Body temperature 98.30 [degF] Sun Feb 23 00:2 6:37 EST 5 Respiratory rate 18.00 /min Sun Feb 23 00:2 6:37 EST 5 Systolic Blood Pressure 122.00 mm[Hg] Sat Feb 22 08:29:48 EST 5 Diastolic Blood Pressure 74.00 mm[Hg] Sat Feb 22 08:29:48 EST 5 Systolic Blood Pressure 122.00 mm[Hg] Sat Feb 22 08:29:48 EST 2024 Diastolic Blood Pressure 74.00 mm[Hg] Sat Feb 22 08:29:48 EST 2024 Pulse Oximetry 96.00 % Sat Feb 22 08:29 :48 EST 2024 Body weight 145.40 [lb_av] Sat Feb 22 08:29 :48 EST 2024 Heart Rate 88.00 /min Sat Feb 22 08:29 :48 EST 2024 Body temperature 97.80 [degF] Sat Feb 22 08:2 9:48 EST 2024 Respiratory rate 20.00 /min Sat Feb 22 08:2 9:48 EST 2024 Systolic Blood Pressure 116.00 mm[Hg] Sat Feb 22 03:13:00 EST 2024 Diastolic Blood Pressure 71.00 mm[Hg] Sat Feb 22 03:13:00 EST 2024 Pulse Oximetry 97.00 % Sat Feb 22 03:13 :00 EST 2024 Heart Rate 94.00 /min Sat Feb 22 03:13 :00 EST 2024 Body temperature 98.00 [degF] Sat Feb 22 03:1 3:00 EST 2024 Respiratory rate 18.00 /min Sat Feb 22 03:1 3:00 EST 2024 Body weight 144.60 [lb_av] Fri Feb 21 10:29 :10 EST 2024 Systolic Blood Pressure 128.00 mm[Hg] Fri Feb 08:57:35 EST 2024 Diastolic Blood Pressure 65.00 mm[Hg] Fri Feb 08:57:35 EST 2024 Systolic Blood Pressure 128.00 mm[Hg] Fri Feb 08:42:12 EST 2024 Diastolic Blood Pressure 65.00 mm[Hg] Fri Feb 08:42:12 EST 2024 Pulse Oximetry 98.00 % Fri Feb 08:42 :12 EST 2024 Heart Rate 82.00 /min Fri Feb 08:42 :12 EST 2024 Body temperature 97.40 [degF] Fri Feb 08:4 2:12 EST 5 Respiratory rate 18.00 /min Fri Feb 08:4 2:12 EST 5 Systolic Blood Pressure 115.00 mm[Hg] Jennifer Feb 20 23:51:24 EST 2024 Diastolic Blood Pressure 69.00 mm[Hg] Jennifer Feb 20 23:51:24 EST 2024 Pulse Oximetry 97.00 % Jennifer Feb 20 23:51 :24 EST 2024 Heart Rate 88.00 /min Jennifer Feb 20 23:51 :24 EST 2024 Body temperature 97.80 [degF] Jennifer Feb 20 23:5 1:24 EST 2024 Respiratory rate 20.00 /min Jennifer Feb 20 23:5 1:24 EST 2024 Systolic Blood Pressure 111.00 mm[Hg] Jennifer Feb 20 08:42:43 EST 2024 Diastolic Blood Pressure 69.00 mm[Hg] Jennifer Feb 20 08:42:43 EST 2024 Systolic Blood Pressure 111.00 mm[Hg] Jennifer Feb 20 08:36:01 EST 2024 Diastolic Blood Pressure 69.00 mm[Hg] Jennifer Feb 20 08:36:01 EST 2024 Pulse Oximetry 97.00 % Jennifer Feb 20 08:36 :01 EST 2024 Body weight 145.00 [lb_av] Jennifer Feb 20 08:36 :01 EST 2024 Heart Rate 82.00 /min Jennifer Feb 20 08:36 :01 EST 2024 Body temperature 98.20 [degF] Jennifer Feb 20 08:3 6:01 EST 2024 Respiratory rate 20.00 /min Jennifer Feb 20 08:3 6:01 EST 2024 Systolic Blood Pressure 117.00 mm[Hg] Jennifer Feb 20 02:59:50 EST 2024 Diastolic Blood Pressure 62.00 mm[Hg] Jennifer Feb 20 02:59:50 EST 2024 Pulse Oximetry 97.00 % Jennifer Feb 20 02:59 :50 EST 2024 Heart Rate 88.00 /min Jennifer Feb 20 02:59 :50 EST 2024 Body temperature 97.80 [degF] Jennifer Feb 20 02:5 9:50 EST 2024 Respiratory rate 20.00 /min Jennifer Feb 20 02:5 9:50 EST 2024 Body weight 144.60 [lb_av] Wed Feb 19 10:12 :00 EST 2024 Systolic Blood Pressure 136.00 mm[Hg] Wed Feb 19 09:05:08 EST 2024 Diastolic Blood Pressure 78.00 mm[Hg] Wed Feb 19 09:05:08 EST 2024 Systolic Blood Pressure 136.00 mm[Hg] Wed Feb 19 08:40:02 EST 2024 Diastolic Blood Pressure 78.00 mm[Hg] Wed Feb 19 08:40:02 EST 2024 Pulse Oximetry 96.00 % Wed Feb 19 08:40 :02 EST 5 Heart Rate 81.00 /min Wed Feb 19 08:40 :02 EST 5 Body temperature 98.20 [degF] Wed Feb 19 08:4 0:02 EST 5 Respiratory rate 18.00 /min Wed Feb 19 08:4 0:02 EST 5 Systolic Blood Pressure 120.00 mm[Hg] Tue Feb 18 20:27:47 EST 5 Diastolic Blood Pressure 72.00 mm[Hg] Tue Feb 18 20:27:47 EST 2024 Pulse Oximetry 94.00 % e Feb 18 20:27 :47 EST 2024 Heart Rate 88.00 /min e Feb 18 20:27 :47 EST 2024 Body temperature 97.80 [degF] e Feb 18 20:2 7:47 EST 2024 Respiratory rate 20.00 /min e Feb 18 20:2 7:47 EST 2024 Systolic Blood Pressure 122.00 mm[Hg] e Feb 18 11:14:54 EST 2024 Diastolic Blood Pressure 78.00 mm[Hg] e Feb 18 11:14:54 EST 2024 Pulse Oximetry 96.00 % e Feb 18 11:14 :54 EST 2024 Body weight 143.60 [lb_av] e Feb 18 11:14 :54 EST 2024 Heart Rate 86.00 /min e Feb 18 11:14 :54 EST 2024 Body temperature 97.60 [degF] e Feb 18 11:1 4:54 EST 5 Respiratory rate 18.00 /min e Feb 18 11:1 4:54 EST 5 Systolic Blood Pressure 122.00 mm[Hg] e Feb 18 09:31:21 EST 5 Diastolic Blood Pressure 78.00 mm[Hg] e Feb 18 09:31:21 EST 5 Systolic Blood Pressure 122.00 mm[Hg] e Feb 18 02:46:13 EST 5 Diastolic Blood Pressure 63.00 mm[Hg] e Feb 18 02:46:13 EST 2024 Pulse Oximetry 95.00 % e Feb 18 02:46 :13 EST 2024 Heart Rate 76.00 /min e Feb 18 02:46 :13 EST 2024 Body temperature 98.30 [degF] e Feb 18 02:4 6:13 EST 2024 Respiratory rate 18.00 /min Fri Feb 18 02:4 6:13 EST 2024 Body weight 145.60 [lb_av] Mon Feb 17 14:53 :00 EST 2024 Systolic Blood Pressure 137.00 mm[Hg] Mon Feb 17 08:43:09 EST 2024 Diastolic Blood Pressure 80.00 mm[Hg] Mon Feb 17 08:43:09 EST 5 Systolic Blood Pressure 137.00 mm[Hg] Mon Feb 17 08:13:22 EST 2024 Diastolic Blood Pressure 80.00 mm[Hg] Mon Feb 17 08:13:22 EST 2024 Pulse Oximetry 95.00 % Mon Feb 17 08:13 :22 EST 2024 Heart Rate 85.00 /min Mon Feb 17 08:13 :22 EST 2024 Body temperature 97.80 [degF] Mon Feb 17 08:1 3:22 EST 2024 Respiratory rate 18.00 /min Mon Feb 17 08:1 3:22 EST 2024 Systolic Blood Pressure 130.00 mm[Hg] Sun Feb 16 23:59:40 EST 2024 Diastolic Blood Pressure 72.00 mm[Hg] Sun Feb 16 23:59:40 EST 2024 Pulse Oximetry 97.00 % Sun Feb 16 23:59 :40 EST 2024 Heart Rate 82.00 /min Sun Feb 16 23:59 :40 EST 2024 Body temperature 96.90 [degF] Sun Feb 16 23:5 9:40 EST 5 Respiratory rate 18.00 /min Sun Feb 16 23:5 9:40 EST 5 Systolic Blood Pressure 122.00 mm[Hg] Sun Feb 16 10:47:57 EST 5 Diastolic Blood Pressure 70.00 mm[Hg] Sun Feb 16 10:47:57 EST 2024 Pulse Oximetry 95.00 % Sun Feb 16 10:47 :57 EST 2024 Body weight 144.40 [lb_av] Sun Feb 16 10:47 :57 EST 5 Heart Rate 83.00 /min Sun Feb 16 10:47 :57 EST 2024 Body temperature 97.80 [degF] Sun Feb 16 10:4 7:57 EST 2025 Respiratory rate 18.00 /min Sun Feb 16 10:4 7:57 EST 5 Systolic Blood Pressure 131.00 mm[Hg] Sun Feb 16 08:52:24 EST 5 Diastolic Blood Pressure 51.00 mm[Hg] Sun Feb 16 08:52:24 EST 5 Systolic Blood Pressure 115.00 mm[Hg] Sat Feb 15 23:54:18 EST 2024 Diastolic Blood Pressure 73.00 mm[Hg] Sat Feb 15 23:54:18 EST 2024 Pulse Oximetry 96.00 % Sat Feb 15 23:54 :18 EST 5 Respiratory rate 20.00 /min Sat Feb 15 23:5 4:18 EST 2024 Heart Rate 84.00 /min Sat Feb 15 23:54 :18 EST 2024 Body temperature 97.80 [degF] Sat Feb 15 23:5 4:18 EST 2024 Systolic Blood Pressure 133.00 mm[Hg] Sat Feb 15 09:20:59 EST 2024 Diastolic Blood Pressure 71.00 mm[Hg] Sat Feb 15 09:20:59 EST 2024 Pulse Oximetry 96.00 % Sat Feb 15 09:20 :59 EST 2024 Body weight 144.00 [lb_av] Sat Feb 15 09:20 :59 EST 2024 Heart Rate 82.00 /min Sat Feb 15 09:20 :59 EST 2024 Body temperature 98.00 [degF] Sat Feb 15 09:2 0:59 EST 5 Respiratory rate 18.00 /min Sat Feb 15 09:2 0:59 EST 2024 Systolic Blood Pressure 114.00 mm[Hg] Sat Feb 15 08:01:58 EST 5 Diastolic Blood Pressure 66.00 mm[Hg] Sat Feb 15 08:01:58 EST 5 Systolic Blood Pressure 106.00 mm[Hg] Fri Feb 14 21:04:42 EST 5 Diastolic Blood Pressure 68.00 mm[Hg] Fri Feb 14 21:04:42 EST 2024 Pulse Oximetry 97.00 % Fri Feb 14 21:04 :42 EST 5 Heart Rate 88.00 /min Fri Feb 14 21:04 :42 EST 5 Body temperature 96.40 [degF] Fri Feb 14 21:0 4:42 EST 5 Respiratory rate 18.00 /min Fri Feb 14 21:0 4:42 EST 2025 Systolic Blood Pressure 98.00 mm[Hg] Fri Feb 14 08:52:58 EST 2024 Diastolic Blood Pressure 66.00 mm[Hg] Fri Feb 14 08:52:58 EST 2024 Pulse Oximetry 93.00 % Fri Feb 14 08:52 :58 EST 2024 Heart Rate 93.00 /min Fri Feb 14 08:52 :58 EST 2024 Body temperature 98.00 [degF] Fri Feb 14 08:5 2:58 EST 5 Respiratory rate 19.00 /min Fri Feb 14 08:5 2:58 EST 2024 Body weight 142.20 [lb_av] Fri Feb 14 08:43 :18 EST 2024 Systolic Blood Pressure 126.00 mm[Hg] Jennifer Feb 13 20:25:04 EST 2024 Diastolic Blood Pressure 77.00 mm[Hg] Jennifer Feb 13 20:25:04 EST 2024 Pulse Oximetry 97.00 % Jennifer Feb 13 20:25 :04 EST 2024 Heart Rate 88.00 /min Jennifer Feb 13 20:25 :04 EST 2024 Body temperature 97.80 [degF] Jennifer Feb 13 20:2 5:04 EST 2024 Respiratory rate 18.00 /min Jennifer Feb 13 20:2 5:04 EST 2024 Body weight 145.20 [lb_av] Jennifer Feb 13 13:35 :41 EST 2024 Systolic Blood Pressure 124.00 mm[Hg] Jennifer Feb 13 08:59:17 EST 2024 Diastolic Blood Pressure 79.00 mm[Hg] Jennifer Feb 13 08:59:17 EST 2024 Systolic Blood Pressure 124.00 mm[Hg] Jennifer Feb 13 08:35:26 EST 5 Diastolic Blood Pressure 79.00 mm[Hg] Jennifer Feb 13 08:35:26 EST 2024 Pulse Oximetry 98.00 % Jennifer Feb 13 08:35 :26 EST 2024 Heart Rate 89.00 /min Jennifer Feb 13 08:35 :26 EST 2024 Body temperature 97.80 [degF] Jennifer Feb 13 08:3 5:26 EST 5 Respiratory rate 20.00 /min Jennifer Feb 13 08:3 5:26 EST 5 Systolic Blood Pressure 125.00 mm[Hg] Wed Feb 12 20:12:15 EST 2025 Diastolic Blood Pressure 73.00 mm[Hg] Wed Feb 12 20:12:15 EST 5 Pulse Oximetry 96.00 % Wed Feb 12 20:12 :15 EST 5 Heart Rate 88.00 /min Wed Feb 12 20:12 :15 EST 5 Body temperature 97.80 [degF] Wed Feb 12 20:1 2:15 EST 5 Respiratory rate 18.00 /min Wed Feb 12 20:1 2:15 EST 2024 Body weight 144.80 [lb_av] Wed Feb 12 10:55 :45 EST 5 Systolic Blood Pressure 135.00 mm[Hg] Wed Feb 12 08:58:10 EST 5 Diastolic Blood Pressure 65.00 mm[Hg] Wed Feb 12 08:58:10 EST 5 Systolic Blood Pressure 135.00 mm[Hg] Wed Feb 12 08:47:18 EST 2024 Diastolic Blood Pressure 65.00 mm[Hg] Wed Feb 12 08:47:18 EST 2024 Pulse Oximetry 96.00 % Wed Feb 12 08:47 :18 EST 2024 Heart Rate 88.00 /min Wed Feb 12 08:47 :18 EST 2024 Body temperature 98.50 [degF] Wed Feb 12 08:4 7:18 EST 5 Respiratory rate 19.00 /min Wed Feb 12 08:4 7:18 EST 2024 Systolic Blood Pressure 124.00 mm[Hg] e Feb 11 23:32:03 EST 2024 Diastolic Blood Pressure 67.00 mm[Hg] e Feb 11 23:32:03 2024 Pulse Oximetry 96.00 % Fri Feb 11 23:32 :03 EST 2024 Heart Rate 88.00 /min e Feb 11 23:32 :03 EST 2024 Body temperature 97.80 [degF] e Feb 11 23:3 2:03 EST 5 Respiratory rate 20.00 /min e Feb 11 23:3 2:03 EST 2024 Body weight 144.60 [lb_av] e Feb 11 08:55 :33 EST 2024 Systolic Blood Pressure 119.00 mm[Hg] e Feb 11 08:50:35 EST 5 Diastolic Blood Pressure 66.00 mm[Hg] e Feb 11 08:50:35 EST 5 Systolic Blood Pressure 119.00 mm[Hg] Tue Feb 11 08:39:59 EST 2024 Diastolic Blood Pressure 66.00 mm[Hg] Frib 08:39:59 EST 2024 Pulse Oximetry 96.00 % Frib 08:39 :59 EST 2024 Heart Rate 87.00 /min Frib 08:39 :59 EST 5 Body temperature 97.80 [degF] Frib 08:3 9:59 EST 5 Respiratory rate 18.00 /min Fri Feb 08:3 9:59 EST 5 Systolic Blood Pressure 115.00 mm[Hg] Mon Feb 10 23:23:08 EST 2024 Diastolic Blood Pressure 69.00 mm[Hg] Mon Feb 10 23:23:08 EST 2024 Pulse Oximetry 97.00 % Fri Feb 10 23:23 :08 EST 2024 Body temperature 97.10 [degF] Mon Feb 10 23:2 3:08 EST 2024 Heart Rate 86.00 /min Mon Feb 10 23:23 :08 EST 5 Respiratory rate 20.00 /min Mon Feb 10 23:2 3:08 EST 2024 Systolic Blood Pressure 103.00 mm[Hg] Mon Feb 10 08:15:37 EST 5 Diastolic Blood Pressure 68.00 mm[Hg] Mon Feb 10 08:15:37 EST 2024 Pulse Oximetry 97.00 % Mon Feb 10 08:15 :37 EST 2024 Body weight 145.40 [lb_av] Mon Feb 10 08:15 :37 EST 5 Heart Rate 80.00 /min Mon Feb 10 08:15 :37 EST 2024 Body temperature 97.40 [degF] Mon Feb 10 08:1 5:37 EST 5 Respiratory rate 18.00 /min Mon Feb 10 08:1 5:37 EST 5 Systolic Blood Pressure 120.00 mm[Hg] Sun Feb 23:45:50 EST 5 Diastolic Blood Pressure 71.00 mm[Hg] Sun b 23:45:50 EST 2024 Pulse Oximetry 95.00 % Frib 23:45 :50 EST 5 Heart Rate 88.00 /min Frib 23:45 :50 EST 5 Body temperature 97.80 [degF] Sun Feb 23:4 5:50 EST 5 Respiratory rate 20.00 /min Sun Feb 09 23:4 5:50 EST 2024 Body weight 144.60 [lb_av] Sun Feb 09 14:33 :12 EST 2024 Systolic Blood Pressure 116.00 mm[Hg] Sun Feb 09 10:14:12 EST 2024 Diastolic Blood Pressure 65.00 mm[Hg] Sun Feb 09 10:14:12 EST 2024 Systolic Blood Pressure 116.00 mm[Hg] Sun Feb 09 10:14:12 EST 2024 Diastolic Blood Pressure 65.00 mm[Hg] Sun Feb 09 10:14:12 EST 2024 Pulse Oximetry 94.00 % Sun Feb 09 10:14 :12 EST 2024 Heart Rate 79.00 /min Sun Feb 09 10:14 :12 EST 2024 Body temperature 97.80 [degF] Sun Feb 09 10:1 4:12 EST 2024 Respiratory rate 20.00 /min Sun Feb 09 10:1 4:12 EST 2024 Systolic Blood Pressure 127.00 mm[Hg] Sat Feb 08 23:59:52 EST 2024 Diastolic Blood Pressure 58.00 mm[Hg] Sat Feb 08 23:59:52 EST 2024 Pulse Oximetry 95.00 % Sat Feb 08 23:59 :52 EST 2024 Heart Rate 87.00 /min Sat Feb 08 23:59 :52 EST 2024 Body temperature 98.00 [degF] Sat Feb 08 23:5 9:52 EST 5 Respiratory rate 18.00 /min Sat Feb 08 23:5 9:52 EST 2024 Body weight 144.20 [lb_av] Sat Feb 08 16:29 :07 EST 2024 Systolic Blood Pressure 131.00 mm[Hg] Sat Feb 08 09:20:42 EST 2025 Diastolic Blood Pressure 74.00 mm[Hg] Sat Feb 08 09:20:42 EST 2025 Systolic Blood Pressure 131.00 mm[Hg] Sat Feb 08 09:20:42 EST 5 Diastolic Blood Pressure 74.00 mm[Hg] Sat Feb 08 09:20:42 EST 5 Pulse Oximetry 95.00 % Sat Feb 08 09:20 :42 EST 5 Heart Rate 81.00 /min Sat Feb 08 09:20 :42 EST 5 Body temperature 98.00 [degF] Sat Feb 08 09:2 0:42 EST 2025 Respiratory rate 18.00 /min Sat Feb 08 09:2 0:42 EST 2024 Systolic Blood Pressure 116.00 mm[Hg] Fri Feb 07 21:40:24 EST 5 Diastolic Blood Pressure 63.00 mm[Hg] Fri Feb 07 21:40:24 EST 2024 Pulse Oximetry 97.00 % Frib 07 21:40 :24 EST 2024 Heart Rate 86.00 /min Fri Feb 07 21:40 :24 EST 2024 Body temperature 97.80 [degF] Frib 07 21:4 0:24 EST 5 Respiratory rate 16.00 /min Fri Feb 21:4 0:24 EST 2024 Body weight 144.80 [lb_av] Frib 07 12:48 :19 EST 2024 Body weight 144.60 [lb_av] Frib 11:35 :01 EST 2024 Systolic Blood Pressure 97.00 mm[Hg] Frib 07 09:41:35 EST 5 Diastolic Blood Pressure 58.00 mm[Hg] Frib 09:41:35 EST 2024 Systolic Blood Pressure 97.00 mm[Hg] Frib 09:41:35 EST 5 Diastolic Blood Pressure 58.00 mm[Hg] Frib 09:41:35 EST 2024 Pulse Oximetry 95.00 % Frib 09:41 :35 EST 2024 Heart Rate 91.00 /min Frib 09:41 :35 EST 2024 Body temperature 98.00 [degF] Frib 07 09:4 1:35 EST 5 Respiratory rate 20.00 /min Frib 07 09:4 1:35 EST 5 Systolic Blood Pressure 139.00 mm[Hg] Fri Feb 07 00:18:17 EST 5 Diastolic Blood Pressure 85.00 mm[Hg] Frib 07 00:18:17 EST 5 Pulse Oximetry 97.00 % Frib 07 00:18 :17 EST 5 Heart Rate 86.00 /min Frib 07 00:18 :17 EST 5 Body temperature 97.10 [degF] Frib 07 00:1 8:17 EST 5 Respiratory rate 20.00 /min Fri Feb 07 00:1 8:17 EST 5 Systolic Blood Pressure 135.00 mm[Hg] Jennifer b 06 10:02:22 EST 2025 Diastolic Blood Pressure 66.00 mm[Hg] Jennifer Feb 06 10:02:22 EST 2024 Pulse Oximetry 96.00 % Jennifer Feb 06 10:02 :22 EST 2024 Body weight 145.20 [lb_av] Jennifer Feb 06 10:02 :22 EST 2024 Heart Rate 86.00 /min Jennifer Feb 06 10:02 :22 EST 2024 Body temperature 97.80 [degF] Jennifer Feb 06 10:0 2:22 EST 2024 Respiratory rate 20.00 /min Jennifer Feb 06 10:0 2:22 EST 2024 Systolic Blood Pressure 135.00 mm[Hg] Jennifer Feb 06 08:59:44 EST 2024 Diastolic Blood Pressure 66.00 mm[Hg] Jennifer Feb 06 08:59:44 EST 2024 Systolic Blood Pressure 109.00 mm[Hg] Wed Feb 05 22:49:05 EST 2024 Diastolic Blood Pressure 78.00 mm[Hg] Wed Feb 05 22:49:05 2024 Pulse Oximetry 98.00 % Wed Feb 05 22:49 :05 EST 2024 Heart Rate 86.00 /min Wed Feb 05 22:49 :05 EST 2024 Body temperature 97.80 [degF] Wed Feb 05 22:4 9:05 EST 2024 Respiratory rate 18.00 /min Wed Feb 05 22:4 9:05 EST 2024 Body weight 150.40 [lb_av] Wed Feb 05 11:22 :11 EST 2024 Systolic Blood Pressure 126.00 mm[Hg] Wed Feb 05 09:26:51 EST 2024 Diastolic Blood Pressure 66.00 mm[Hg] Wed Feb 05 09:26:51 EST 2024 Systolic Blood Pressure 126.00 mm[Hg] Wed Feb 05 09:25:41 EST 2024 Diastolic Blood Pressure 66.00 mm[Hg] Wed Feb 05 09:25:41 EST 2024 Pulse Oximetry 96.00 % Wed Feb 05 09:25 :41 EST 2024 Heart Rate 96.00 /min Wed Feb 05 09:25 :41 EST 2024 Body temperature 98.50 [degF] Wed Feb 05 09:2 5:41 EST 2024 Respiratory rate 18.00 /min Wed Feb 05 09:2 5:41 EST 2024 Systolic Blood Pressure 136.00 mm[Hg] Tue Feb 04 21:19:31 EST 2024 Diastolic Blood Pressure 76.00 mm[Hg] Fri 04 21:19:31 EST 2024 Pulse Oximetry 97.00 % Fri 04 21:19 :31 EST 2024 Heart Rate 86.00 /min Fri 04 21:19 :31 EST 2024 Body temperature 97.70 [degF] FriJun 22 21:1 9:31 EST 2024 Respiratory rate 18.00 /min Fri 04 21:1 9:31 EST 5 Body weight 145.60 [lb_av] FriJun 22 11:59 :53 EST 2024 Systolic Blood Pressure 138.00 mm[Hg] FriJun 22 09:15:42 2024 Diastolic Blood Pressure 77.00 mm[Hg] Fri 04 09:15:42 2024 Systolic Blood Pressure 138.00 mm[Hg] FriJun 22 09:15:42 2024 Diastolic Blood Pressure 77.00 mm[Hg] FriJun 22 09:15:42 2024 Pulse Oximetry 97.00 % FriJun 22 09:15 :42 2024 Heart Rate 85.00 /min FriJun 22 09:15 :42 2024 Body temperature 96.50 [degF] FriJun 22 09:1 5:42 EST 2024 Respiratory rate 19.00 /min FriJun 22 09:1 5:42 2024 Systolic Blood Pressure 119.00 mm[Hg] FriJun 22 01:34:34 EST 2024 Diastolic Blood Pressure 61.00 mm[Hg] FriJun 22 01:34:34 2024 Pulse Oximetry 95.00 % Fri 04 01:34 :34 EST 2024 Heart Rate 85.00 /min Fri 04 01:34 :34 EST 2024 Body temperature 97.80 [degF] FriJun 22 01:3 4:34 EST 5 Respiratory rate 18.00 /min Fri 04 01:3 4:34 EST 2024 Body weight 145.80 [lb_av] FriJun 21 15:41 :39 EST 2024 Body Height 67.00 [in_i] FriJun 21 09:36 :18 EST 5 Systolic Blood Pressure 120.00 mm[Hg] Mon Feb 03 09:23:09 EST 2024 Diastolic Blood Pressure 67.00 mm[Hg] Mon Feb 03 09:23:09 EST 2024 Systolic Blood Pressure 120.00 mm[Hg] Mon Feb 03 09:23:09 EST 2024 Diastolic Blood Pressure 67.00 mm[Hg] Mon Feb 03 09:23:09 EST 2024 Pulse Oximetry 94.00 % Mon Feb 03 09:23 :09 EST 2024 Heart Rate 80.00 /min Mon Feb 03 09:23 :09 EST 2024 Body temperature 97.80 [degF] Mon Feb 03 09:2 3:09 EST 2024 Respiratory rate 20.00 /min Mon Feb 03 09:2 3:09 EST 2024 Systolic Blood Pressure 117.00 mm[Hg] Mon Feb 03 01:03:04 EST 2024 Diastolic Blood Pressure 60.00 mm[Hg] Mon Feb 03 01:03:04 EST 2024 Pulse Oximetry 95.00 % Mon Feb 03 01:03 :04 EST 2024 Heart Rate 85.00 /min Mon Feb 03 01:03 :04 EST 2024 Body temperature 97.30 [degF] Mon Feb 03 01:0 3:04 EST 2024 Respiratory rate 18.00 /min Mon Feb 03 01:0 3:04 EST 2024 Body weight 145.60 [lb_av] Sun Feb 02 09:29 :56 EST 2024 Systolic Blood Pressure 106.00 mm[Hg] Sun Feb 02 09:02:03 EST 2024 Diastolic Blood Pressure 70.00 mm[Hg] Sun Feb 02 09:02:03 EST 2024 Systolic Blood Pressure 106.00 mm[Hg] Sun Feb 02 08:53:51 EST 2024 Diastolic Blood Pressure 70.00 mm[Hg] Sun Feb 02 08:53:51 EST 2024 Pulse Oximetry 94.00 % Sun Feb 08:53 :51 EST 2024 Heart Rate 82.00 /min Sun Feb 02 08:53 :51 EST 2024 Body temperature 98.20 [degF] Sun Feb 02 08:5 3:51 EST 2024 Respiratory rate 20.00 /min Sun Feb 02 08:5 3:51 EST 2024 Systolic Blood Pressure 136.00 mm[Hg] Sun Feb 02 01:01:31 EST 2024 Diastolic Blood Pressure 77.00 mm[Hg] Sun Feb 02 01:01:31 EST 2024 Pulse Oximetry 96.00 % Sun Feb 02 01:01 :31 EST 2024 Heart Rate 91.00 /min Sun Feb 02 01:01 :31 EST 2024 Body temperature 98.00 [degF] Sun Feb 02 01:0 1:31 EST 2024 Respiratory rate 18.00 /min Sun Feb 02 01:0 1:31 EST 2024 Body weight 145.20 [lb_av] Sat Feb 01 13:00 :15 EST 202 Systolic Blood Pressure 142.00 mm[Hg] Sat Feb 09:36:54 EST 202 Diastolic Blood Pressure 79.00 mm[Hg] Sat Feb 09:36:54 EST 2024 Systolic Blood Pressure 142.00 mm[Hg] Sat Feb 09:36:54 EST 2024 Diastolic Blood Pressure 79.00 mm[Hg] Sat Feb 09:36:54 EST 2024 Pulse Oximetry 97.00 % Sat Feb 09:36 :54 EST 2024 Heart Rate 91.00 /min Sat Feb 09:36 :54 EST 2024 Body temperature 98.00 [degF] Sat Feb 09:3 6:54 EST 2024 Respiratory rate 18.00 /min Sat Feb 09:3 6:54 EST 2024 Systolic Blood Pressure 127.00 mm[Hg] Sat Feb 01:31:30 EST 2024 Diastolic Blood Pressure 74.00 mm[Hg] Sat Feb 01:31:30 EST 2024 Pulse Oximetry 95.00 % Sat Feb 01:31 :30 EST 202 Heart Rate 73.00 /min Sat Feb 01:31 :30 EST 2024 Body temperature 97.80 [degF] Sat Feb 01:3 1:30 EST 5 Respiratory rate 20.00 /min Sat Feb 01:3 1:30 EST 2024 Systolic Blood Pressure 113.00 mm[Hg] FriJun 18 09:09:19 EST 2024 Diastolic Blood Pressure 69.00 mm[Hg] FriJun 18 09:09:19 EST 5 Systolic Blood Pressure 113.00 mm[Hg] FriJun 18 09:09:19 EST 2024 Diastolic Blood Pressure 69.00 mm[Hg] FriJun 18 09:09:19 EST 2024 Pulse Oximetry 94.00 % FriJun 18 09:09 :19 EST 2024 Heart Rate 90.00 /min FriJun 18 09:09 :19 EST 2024 Body temperature 98.50 [degF] FriJun 18 09:0 9:19 EST 2024 Respiratory rate 20.00 /min FriJun 18 09:0 9:19 EST 2024 Systolic Blood Pressure 143.00 mm[Hg] FriJun 18 00:30:48 EST 2024 Diastolic Blood Pressure 93.00 mm[Hg] FriJun 18 00:30:48 EST 2024 Pulse Oximetry 95.00 % FriJun 18 00:30 :48 EST 2024 Heart Rate 75.00 /min FriJun 18 00:30 :48 EST 2024 Body temperature 97.40 [degF] FriJun 18 00:3 0:48 EST 2024 Respiratory rate 18.00 /min FriJun 18 00:3 0:48 EST 2024 Systolic Blood Pressure 143.00 mm[Hg] FriJun 17 17:45:00 EST 2024 Diastolic Blood Pressure 93.00 mm[Hg] FriJun 17 17:45:00 EST 2024 Pulse Oximetry 95.00 % FriJun 17 17:45 :00 EST 2024 Heart Rate 93.00 /min FriJun 17 17:45 :00 EST 2024 Body temperature 97.40 [degF] FriJun 17 17:4 5:00 EST 2024 Respiratory rate 18.00 /min FriJun 17 17:4 5:00 EST 2024 Reason for Referral
--- OUTSIDE RECORDS SUMMARY | 2024-11-16 12:13 | XMS_ITS | Data Portability ---
Author Organization [place] [facility], Main Office Address [address] [place] [address] Care Team Providers Care Photovoltaic Testing Technician Name Role Phone [facility] FAX OTHER [place] Primary Care Provider [phone] Assessment Encounter Date Assessment Date Assessment LastModified by Organization Details LastModified Time 07/05/2024 07/05/2024 Labs (CBC, BMP) on 07/08. Not available 07/05/2024 14:22:03 07/07/2024 07/07/2024 Labs (CBC, BMP) on 07/08. Not available 07/07/2024 12:18:10 07/19/2024 07/19/2024 Pt will d/c home on 07/20 with [facility]. Not available 07/19/2024 15:31:57 Plan of Treatment [...] By Organization Details Last Modified Time 06/30/2024 [id number] I spent 33 minutes providing care to the patient today. More than 50% of that time was spent in discussing the expected course of the disease, discussing prognosis, coordinating care and counseling of the patient/family. Not available 06/30/2024 15:51:24 07/05/2024 [id number] I spent 35 minutes providing care to the patient today. More than 50% of that time was spent in discussing the expected course of the disease, discussing prognosis, coordinating care and counseling of the patient/family. Not available 07/05/2024 14:21:04 07/07/2024 [id number] I spent 35 minutes providing care to the patient today. More than 50% of that time was spent in discussing the expected course of the disease, discussing prognosis, coordinating care and counseling of the patient/family. Not available 07/07/2024 18:42:56 07/14/2024 [id number] I spent 36 minutes providing care to the patient today. More than 50% of that time was spent in discussing the expected course of the disease, discussing prognosis, coordinating care and counseling of the patient/family. Not available 07/14/2024 18:59:47 07/19/2024 [id number] I spent 40 minutes providing care to the patient today. More than 50% of that time was spent in discussing the expected course of the disease, discussing prognosis, coordinating care and counseling of the patient/family. The patient will be discharged home with home health orders of home health RN / PT / OT to evaluate and treat. The patient is homebound because of fall risk and is unable to leave home safely because requires considerable and taxing effort to leave home. The patient requires home health nursing for [...] Details Recorded Time lumpectomy of breast completed Bonilla [place] - [facility] 06/17/2024 21:31:23 Carpal Tunnel Release completed Bonilla Spamp[place] - [facility] 06/17/2024 21:31:35 procedure on foot completed Bonilla Spamp[place] [facility] 06/17/2024 21:31:51 [facility] [place] [facility] 06/17/2024 21:32:00 Imaging Results None recorded. Procedure [...] /min 96 % 96 % 22.7 kg/m2 77284.1 8 g 135 mm[Hg] 65 mm[Hg] [place] [address] [place], [address], [facility] 5 15:45:12 Date Recorded Body height Heart rate Body temperature Respiratory rate Oxygen saturation Oxygen saturation in Arterial blood by Pulse oximetry Body mass index (BMI) Body weight Systolic blood pressure Diastolic blood pressure Provider Name and Address Organization Details Last Updated DateTime 5 170.18 cm 85 /min 97.8 [degF] 18 /min 95 % 95 % 22.6 kg/m2 17110.7 4 g 137 mm[Hg] 80 mm[Hg] [place] [address] [place], [address], [facility] 5 14:14:25 Date Recorded Body height Heart rate Body temperature Respiratory rate Oxygen saturation Oxygen saturation in Arterial blood by Pulse oximetry Body mass index (BMI) Body weight Systolic blood pressure Diastolic blood pressure Provider Name and Address Organization Details Last Updated DateTime 5 170.18 cm 81 /min 98.2 [degF] 18 /min 96 % 96 % 22.6 kg/m2 59131.4 6 g 136 mm[Hg] 78 mm[Hg] [place] [address] [place], [address], [facility] 5 11:58:05 Date Recorded Body height Heart rate Body temperature Respiratory rate Oxygen saturation Oxygen saturation in Arterial blood by Pulse oximetry Body mass index (BMI) Body weight Systolic blood pressure Diastolic blood pressure Provider Name and Address Organization Details Last Updated DateTime 5 170.18 cm 79 /min 97.8 [degF] 18 /min 97 % 97 % 22.5 kg/m2 83292.5 8 g 130 mm[Hg] 69 mm[Hg] [place] [address] [place], [address], [place] [facility] 5 15:26:19 Date Recorded Body height Heart rate Body temperature Respiratory rate Oxygen saturation Oxygen saturation in Arterial blood by Pulse oximetry Body mass index (BMI) Body weight Systolic blood pressure Diastolic blood pressure Provider Name and Address Organization Details Last Updated DateTime 170.18 cm 93 /min 98.2 [degF] 18 /min 97 % 97 % 22.7 kg/m2 58394.6 1 g 113 mm[Hg] 71 mm[Hg] [place] [address] [place], [address], [place] [facility] 13:59:27 Date Recorded Body height Heart rate Body temperature Respiratory rate Oxygen saturation Oxygen saturation in Arterial blood by Pulse oximetry Body mass index (BMI) Body weight Systolic blood pressure Diastolic blood pressure Provider Name and Address Organization Details Last Updated DateTime 170.18 cm 80 /min 97.4 [degF] 18 /min 98 % 98 % 23 kg/m2 05938.0 8 g 125 mm[Hg] 61 mm[Hg] [place] [address] [place], [address], [place] [facility] 15:27:23 Social History Question Answer Notes LastModified by [employer] Details LastModified Time Tobacco Smoking Status Former Smoker Bonilla Ludmila null, [place] - [facility] 06/17/2024 21:33:01 When Did You Quit Smoking? 16+yearssinc elastcigaret te Information not available 06/17/2024 How Much Tobacco Do You Smoke? No Information not available 06/17/2024 Sex: Unknown Functional Status Question Answer Note LastModified by [employer] Details LastModified Time Do you use any illicit or recreational drugs? No Information not available 06/21/2024 What is your level of alcohol consumption? None not on file Information not available 06/21/2024 Mental Status None recorded. Family History Relationship [...] SNOMED-CT Code Diagnosis ICD10 Code Diagnosis Note [id number] Lise Gay DO [place] [address] [place] [address] 06/20/2024 00:01:18 07/12/2024 11:19:14 Closed fracture of right patella [id number] 4418229 S82.001D continue knee immobilize r and NWB status to the RLEcontinu e prn pain medscontin ue therapiesf /u with ortho 4 weeks - Demarco Rainey NP at [facility] has not been discharged with recommenda tions for DVT prophylaxi s Diabetes mellitus 469940 09 E11.9 continue metformin - she has [...] - PCP manages her symptoms Essential hypertension 75284310 I10 continue lisinopril trend pressures and adjust meds as clinically indicated Hyperlipidemia 00409225 E78.5 presumed stable - continue gemfibrozi l Generalize d anxiety disorder 38842768 F41.1 continue prn alprazolam - this is a long standing outpatient medication not ideal treatment but managed this way per PCP which patient is happy withwill monitor use of prn alprazolam as plan to continue for now and encourage further discussion s with PCP upon d/c for alternate therapy Hypothyroidism 76429073 E03.9 presumed stable - continue levothyrox inelast TSH was in April and normal Insomnia 690285595 F51.0 1 continue prn trazodone Physical deconditioning 9003582170 9102 R68.89 related to advanced age, recent fall with right patellar fracture, comorbidit iestherapi es have been initiated - discharge plan is home alone Chronic ki dney disease 584535524 N18.9 per epic review, creatinine baseline dating back to 2022 1.25-1.47a void nephrotoxi ns and trend labs Anemia 725004337 D64.9 likely related to chronic diseasebas kassy Hb around 10continue to trend [id number] Lise Gay, [facility] [address] [place] [address] 06/22/2024 13:06:15 07/12/2024 11:15:42 Closed fracture of right patella 0999193815 1128244 S82.001D Continue knee immobilize r and NWB status to the RLE.Contin ue PRN pain meds.Sandi nue therapies. She has been discharged with recommenda tions for DVT prophylaxi s. Diabetes mellitus 584332 09 E11.9 Patient reports her Hba1c is [...] been managed by Dr. Westfall. Essential hypertension 68948520 I10 Stable. Continue Lisinopril .Continue to trend blood pressures, monitor lytes and renal function, and adjust meds as clinically indicated. Hyperlipidemia 85667940 E78.5 Presumed stable. Continue Gemfibrozi l. Generalize d anxiety disorder 07218975 F41.1 Stable. Continue PRN Alprazolam . This is a long standing outpatient medication . Not ideal treatment but managed this way per PCP, with which patient is happy.Cristin escobedo use of PRN Alprazolam as plan to continue for now and encourage further discussion s with PCP upon d/c for alternate therapy. Hypothyroidism 67184957 E03.9 Presumed stable. Continue Levothyrox ine.Last TSH was in April 2024 and normal. Insomnia 293884018 F51.0 1 Stable. Continue PRN Trazodone & Alprazolam . Chronic ki dney disease 891046134 N18.9 Per [facility] review. Cr baseline dating back to 2022 was 1.25-1.47. Avoid nephrotoxi ns and trend labs. Anemia 767469556 D64.9 Likely related to chronic disease.Ba seline Hgb around 10.Continu e to trend. Physical deconditioning 4723771654 9102 R68.89 Related to advanced age, recent fall with right patellar fracture, and comorbidit ies.Therap ies have been initiated - discharge plan is home alone. [id number] Lise Gay, DO [address] [address] 06/24/2024 10:42:43 07/12/2024 11:16:25 Closed fracture of right patella 9734173525 8073777 S82.001D Continue knee immobilize r and NWB status to the RLE.Contin ue PRN pain meds.Sandi nue therapies. She has been discharged without recommenda tions for DVT prophylaxi s.F/U with [employer] Demarco Rainey on 07/13. Diabetes mellitus 208118 09 E11.9 Patient reports her Hba1c is usually always between 5-6%. She has previously been on insulin and Bydureon, both of which were recently stopped due to weight loss and well-contr olled blood sugars. She is upset when she hears it is currently 7.3% per labs on 06/18.Stabl e. Continue Metformin. Continue to monitor accuchecks . Appear to have stabilized recently. Parkinson's disease 8468 9000 G20.A1 Diagnosed about 4 years ago. She continues Sinemet TID and denies recent dose adjustment s.She was set to establish care with neurology Dr. Espinosa but had to reschedule due to hospital/r ehab stay. Up to this point, has been managed by Dr. Westfall. Essential hypertension 29652962 I10 Stable. Continue Lisinopril .Continue to trend blood pressures, monitor lytes and renal function, and adjust meds as clinically indicated. Hyperlipidemia 15975891 E78.5 Presumed stable. Continue Gemfibrozi l. Generalize d anxiety disorder 30878186 F41.1 Stable. Continue PRN Alprazolam . This is a long standing outpatient medication . Not ideal treatment but managed this way per PCP, with which patient is happy.Cristin escobedo use of PRN Alprazolam as plan to continue for now and encourage further discussion s with PCP upon d/c for alternate therapy. Hypothyroidism 09277128 E03.9 Presumed stable. Continue Levothyrox ine.Last TSH was in April 2024 and normal. Insomnia 583405413 F51.0 1 Stable. Continue PRN Trazodone & Alprazolam . Chronic ki dney disease 011709167 N18.9 Per epic review. Cr baseline dating back to 2022 was 1.25-1.47. Avoid nephrotoxi ns and trend labs. Anemia 134405365 D64.9 Likely related to chronic disease.Ba seline Hgb around 10.Continu e to trend. Physical deconditioning 7314742460 9102 R68.89 Related to advanced age, recent fall with right patellar fracture, and comorbidit ies.Therap ies have been initiated - discharge plan is home alone. [id number] Lise Gay, DO [address] [address] 06/28/2024 10:20:30 07/12/2024 11:17:09 Closed fracture of right patella 0245654586 4318075 S82.001D Continue knee immobilize r and NWB status to the RLE.Contin ue PRN pain meds.Sandi nue therapies. She has been discharged without recommenda tions for DVT prophylaxi s.F/U with [employer] Demarco Rainey on 07/13. Diabetes mellitus 545693 09 E11.9 Patient reports her Hba1c is usually always between 5-6%. She has previously been on insulin and Bydureon, both of which were recently stopped due to weight loss and well-contr olled blood sugars. She is upset when she hears it is currently 7.3% per labs on 06/18.Stabl e. Continue Metformin. Continue to monitor accuchecks . Appear to have stabilized recently. Parkinson's disease 4413 9000 G20.A1 Diagnosed about 4 years ago. She continues Sinemet TID and denies recent dose adjustment s.She was set to establish care with neurology Dr. Espinosa but had to reschedule due to hospital/r ehab stay. Up to this point, has been managed by Dr. Westfall. Essential hypertension 51985218 I10 Stable. Continue Lisinopril .Continue to trend blood pressures, monitor lytes and renal function, and adjust meds as clinically indicated. Hyperlipidemia 80900308 E78.5 Presumed stable. Continue Gemfibrozi l. Generalize d anxiety disorder 38128600 F41.1 Stable. Continue PRN Alprazolam . This is a long standing outpatient medication . Not ideal treatment but managed this way per PCP, with which patient is happy.Cristin escobedo use of PRN Alprazolam as plan to continue for now and encourage further discussion s with PCP upon d/c for alternate therapy. Hypothyroidism 42899499 E03.9 Presumed stable. Continue Levothyrox ine.Last TSH was in April 2024 and normal. Insomnia 194753639 F51.0 1 Stable. Continue PRN Trazodone & Alprazolam . Chronic ki dney disease 656907220 N18.9 Per epic review. Cr baseline dating back to 2022 was 1.25-1.47. Avoid nephrotoxi ns and trend labs. Anemia 311905272 D64.9 Likely related to chronic disease.Ba seline Hgb around 10.Continu e to trend. Physical deconditioning 7603797354 9102 R68.89 Related to advanced age, recent fall with right patellar fracture, and comorbidit ies.Therap ies have been initiated - discharge plan is home alone. [id number] Lise Gay, DO [address] [address] 06/30/2024 11:33:36 07/12/2024 12:01:02 Closed fracture of right patella 7586149918 6965531 S82.001D Continue knee immobilize r and NWB status to the RLE.Contin ue PRN pain meds.Sandi nue therapies. She has been discharged without recommenda tions for DVT prophylaxi s.F/U with [employer] Demarco Rainey on 07/13. Parkinson's disease 4907 9000 G20.A1 Diagnosed about 4 years ago. She continues Sinemet TID and denies recent dose adjustment s.She was set to establish care with neurology Dr. Espinosa but had to reschedule due to hospital/r ehab stay. Up to this point, has been managed by Dr. Westfall. Essential hypertension 79448961 I10 Stable. Continue Lisinopril .Continue to trend blood pressures, monitor lytes and renal function, and adjust meds as clinically indicated. Diabetes mellitus 806934 09 E11.9 Patient reports her Hba1c is usually always between 5-6%. She has previously been on insulin and Bydureon, both of which were recently stopped due to weight loss and well-contr olled blood sugars. HgA1c recently 7.3% on 06/18.Stabl e. Continue Metformin. Continue to monitor accuchecks . Appear to have stabilized recently. Hyperlipidemia 30463466 E78.5 Presumed stable. Continue Gemfibrozi l. Generalize d anxiety disorder 07256642 F41.1 Stable. Continue PRN Alprazolam . This is a long standing outpatient medication . Not ideal treatment but managed this way per PCP, with which patient is happy.Cristin gregg use of PRN Alprazolam as plan to continue for now and encourage further discussion s with PCP upon d/c for alternate therapy. Hypothyroidism 93749826 E03.9 Presumed stable. Continue Levothyrox ine.Last TSH was in April 2024 and normal. Insomnia 960960611 F51.0 1 Stable. Continue PRN Trazodone & Alprazolam . Chronic ki dney disease 362231161 N18.9 Per epic review. Cr baseline dating back to 2022 was 1.25-1.47. Avoid nephrotoxi ns and trend labs. Anemia 635207215 D64.9 Likely related to chronic disease.Ba seline Hgb around 10.Continu e to trend. Physical deconditioning 7290018781 9102 R68.89 Related to advanced age, recent fall with right patellar fracture, and comorbidit ies.Therap ies have been initiated - discharge plan is home alone. [id number] Lise Gay DO [address] [address] 07/05/2024 09:27:46 07/12/2024 11:17:50 Closed fracture of right patella 7291470907 0063301 S82.001D Continue knee immobilize r and NWB status to the RLE.Contin ue PRN pain meds.Sandi nue therapies. She has been discharged without recommenda tions for DVT prophylaxi s.F/U with [employer] Demarco Rainey on 07/13. Essential hypertension 52789998 I10 Stable. Continue Lisinopril .Continue to trend blood pressures, monitor lytes and renal function, and adjust meds as clinically indicated. Parkinson's disease 490 9000 G20.A1 Diagnosed about 4 years ago. She continues Sinemet TID and denies recent dose adjustment s.She was set to establish care with neurology Dr. Espinosa but had to reschedule due to hospital/r ehab stay. Up to this point, has been managed by Dr. Westfall. Diabetes mellitus 004124 09 E11.9 Patient reports her Hba1c is usually always between 5-6%. She has previously been on insulin and Bydureon, both of which were recently stopped due to weight loss and well-contr olled blood sugars. HgA1c recently 7.3% on 06/18.Stabl e. Continue Metformin. Continue to monitor accuchecks . Appear to have stabilized recently. Chronic ki dney disease 431551615 N18.31 Per epic review. Cr baseline dating back to 2022 was 1.25-1.47. Avoid nephrotoxi ns and trend labs. Generalize d anxiety disorder 62346512 F41.1 Stable. Continue PRN Alprazolam . This is a long standing outpatient medication . Not ideal treatment but managed this way per PCP, with which patient is happy.Cristin escobedo use of PRN Alprazolam as plan to continue for now and encourage further discussion s with PCP upon d/c for alternate therapy. Hypothyroidism 73390374 E03.9 Presumed stable. Continue Levothyrox ine.Last TSH was in April 2024 and normal. Hyperlipidemia 76128366 E78.5 Presumed stable. Continue Gemfibrozi l. Anemia 982468377 D64.9 Likely related to chronic disease.Ba seline Hgb around 10.Continu e to trend. Insomnia 242134227 F51.0 1 Stable. Continue PRN Trazodone & Alprazolam . Physical deconditioning 2099255039 9102 R68.89 Related to advanced age, recent fall with right patellar fracture, and comorbidit ies.Therap ies have been initiated - discharge plan is home alone. [id number] Lise Victor Hugo, [facility] [address] [place] [address] 07/07/2024 10:42:10 07/12/2024 11:18:30 Closed fracture of right patella 8570025281 4737529 S82.001D Continue knee immobilize r and NWB status to the RLE.Contin ue PRN pain meds.Sandi nue therapies. She has been discharged without recommenda tions for DVT prophylaxi s.F/U with [employer] Demarco Rainey on 07/13. Essential hypertension 88957229 I10 Stable. Continue Lisinopril .Continue to trend blood pressures, monitor lytes and renal function, and adjust meds as clinically indicated. Diabetes mellitus 367751 09 E11.9 Patient reports her Hba1c is [...] by Dr. Westfall. Chronic ki dney disease 335712170 N18.31 Per epic review. Cr baseline dating back to 2022 was 1.25-1.47. Avoid nephrotoxi ns and trend labs. Hypothyroidism 49883654 E03.9 Presumed stable. Continue Levothyrox ine.Last TSH was in April 2024 and normal. Generalize d anxiety disorder 11996075 F41.1 Stable. Continue PRN Alprazolam . This is a long standing outpatient medication . Not ideal treatment but managed this way per PCP, with which patient is happy.Cristin tor use of PRN Alprazolam as plan to continue for now and encourage further discussion s with PCP upon d/c for alternate therapy. Hyperlipidemia 42521268 E78.5 Presumed stable. Continue Gemfibrozi l. Anemia 025245922 D64.9 Likely related to chronic disease.Ba seline Hgb around 10.Continu e to trend. Insomnia 001875156 F51.0 1 Stable. Continue PRN Trazodone & Alprazolam . Physical deconditioning 3548606500 9102 R68.89 Related to advanced age, recent fall with right patellar fracture, and comorbidit ies.Therap ies have been initiated - discharge plan is home alone. [id number] Lise Gay, DO [facility] [address] [place] [address] 07/14/2024 13:41:00 07/26/2024 22:26:40 Closed fracture of right patella 5288633323 1921253 S82.001D Initially discharged with orders for knee immobilize r at all times and NWB status to the RLE.Contin ue PRN APAP & [place].Cont inue therapies. She has been discharged without recommenda tions for DVT prophylaxi s.F/U with [employer] Demarco Rainey on 07/13 with WB advanced to WBAT. To continue knee immobilize r when ambulating /transferr ing, but otherwise can remove. Will f/u again in 4 weeks. Essential hypertension 27340773 I10 Stable. Continue Lisinopril .Continue to trend blood pressures, monitor lytes and renal function, and adjust meds as clinically indicated. Chronic ki dney disease 818841486 N18.31 Per epic review. Cr baseline dating back to 2022 was 1.25-1.47. Avoid nephrotoxi ns and trend labs. Diabetes mellitus 967813 09 E11.9 Patient reports her Hba1c is usually always between 5-6%. She has previously been on insulin and Bydureon, both of which were recently stopped due to weight loss and well-contr olled blood sugars. HgA1c recently 7.3% on 06/18.Stabl e. Continue Metformin. Continue to monitor accuchecks . Appear to have stabilized recently. Parkinson's disease 7810 9000 G20.A1 Diagnosed about 4 years ago. She continues Sinemet TID and denies recent dose adjustment s.She was set to establish care with neurology Dr. Espinosa but had to reschedule due to hospital/r ehab stay. Up to this point, has been managed by Dr. Westfall. Anemia 754293913 D64.9 Likely related to chronic disease.Ba sidneyine Hgb around 10.Continu e to trend. Hypothyroidism 18986298 E03.9 Presumed stable. Continue Levothyrox ine.Last TSH was in April 2024 and normal. Generalize d anxiety disorder 42141816 F41.1 Stable. Continue PRN Alprazolam . This is a long standing outpatient medication . Not ideal treatment but managed this way per PCP, with which patient is happy.Cristin escobedo use of PRN Alprazolam as plan to continue for now and encourage further discussion s with PCP upon d/c for alternate therapy. Hyperlipidemia 69327752 E78.5 Presumed stable. Continue Gemfibrozi l. Insomnia 103978718 F51.0 1 Stable. Continue PRN Trazodone & Alprazolam . Physical deconditioning 8227364273 9102 R68.89 Related to advanced age, recent fall with right patellar fracture, and comorbidit ies.Therap ies have been initiated - discharge plan is home alone. [id number] Lise Gay, [facility] [address] [place] [address] 07/19/2024 13:36:17 07/26/2024 22:27:31 Closed fracture of right patella 3768930326 4034833 S82.001D Initially discharged with orders for knee immobilize r at all times and NWB status to the RLE.Contin ue PRN APAP & [place].Cont inue therapies. She has been discharged without recommenda tions for DVT prophylaxi s.F/U with [employer] Demarco Rainey on 07/13 with WB advanced to WBAT. To continue knee immobilize r when ambulating /transferr ing, but otherwise can remove. Will f/u again in 4 weeks. Essential hypertension 91555186 I10 Stable. Continue Lisinopril . Chronic ki dney disease 460013306 N18.31 Per epic review. Cr baseline dating back to 2022 was 1.25-1.47. Avoid nephrotoxi ns and trend labs. Diabetes mellitus 430906 09 E11.9 Patient reports her Hba1c is [...] has been managed by Dr. Westfall. Anemia 528658824 D64.9 Likely related to chronic disease.Ba seline Hgb around 10.Continu e to trend. Hypothyroidism 67592583 E03.9 Presumed stable. Continue Levothyrox ine.Last TSH was in April 2024 and normal. Hyperlipidemia 14358444 E78.5 Presumed stable. Continue Gemfibrozi l. Generalize d anxiety disorder [id number] F41.1 Stable. Continue PRN Alprazolam . This is a long standing outpatient medication . Not ideal treatment but managed this way per PCP, with which patient is happy.Cristin escobedo use of PRN Alprazolam as plan to continue for now and encourage further discussion s with PCP upon d/c for alternate therapy. Insomnia [id number] F51.0 1 Stable. Continue PRN Trazodone & Alprazolam . Health Concerns Section Related Observation LastModified by Organization Detai ls LastModified Time None Recorded Concern Status LastModified by Organization Details LastModified Time None Recorded Advance Directives Directive None Recorded Payers Insurance Date Sequence Insurance Name Policy Number Policy Srinivasan Covered Member ID Srinivasan Member ID Guarantor Name 07/26/2024 2 () Katerina Hoangox [id number] Katerina Jones 07/19/2024 1 [place] Katerina Hoangox [id number] Katerina Jones Notes Date Note Type Note Provider Name [...] The patient lives in a home in [place] with her beloved dog - her neighbor [...] Patient performed sit to stand transfers requiring CGA.---06/28/24Katerina is resting in bed, a good historian, without pain or concerns to report today. VSS. Staff is without concerns today. Per therapy notes: Bed Mobility = Min (A);... Transfers = Mod (A); Assistive Device During Transfers = Two-wheeled walker . Gait Level Surfaces = Mod (A); Distance Level Surfaces = 5 feet---06/30/24Katerina is doing well today, without concerns and reports continued slow but steady progress with therapy. VSS. Staff is without concerns today. Per therapy notes: sit/stand Supervision . Standing at FWW NWB RLE with tolerance up to 4 minutes ... Gait Level Surfaces = Min (A); Distance Level Surfaces = 15 feet; Assistive Device = Two-wheeled walker Yulissa Garzayazmin, TELEVISION CABINET FINISHER [address] [facility], [place], [address], [place] [facility] 06/30/2024 15:51:57 07/05/19 25 text/ht [...] The patient lives in a home in [place] with her beloved dog - her neighbor [...] Patient performed sit to stand transfers requiring CGA.---06/28/24Katerina is resting in bed, a good historian, without pain or concerns to report today. VSS. Staff is without concerns today. Per therapy notes: Bed Mobility = Min (A);... Transfers = Mod (A); Assistive Device During Transfers = Two-wheeled walker . Gait Level Surfaces = Mod (A); Distance Level Surfaces = 5 feet---06/30/24Katerina is doing well today, without concerns and reports continued slow but steady progress with therapy. VSS. Staff is without concerns today. Per therapy notes: sit/stand Supervision . Standing at FWW NWB RLE with tolerance up to 4 minutes ... Gait Level Surfaces = Min (A); Distance Level Surfaces = 15 feet; Assistive Device = Two-wheeled walker---07/05/24Katerina is resting in her recliner in her room. She is a good historian, denies pain or concerns today. She is looking forward to her ortho appt next week in the hopes that her WB will be advanced. VSS. Staff is without concerns today. Yulissa Simpson, [place] [address] [place], [address], [facility] 07/05/2024 14:22:07 07/07/19 25 text/ht [...] The patient lives in a home in [place] with her beloved dog - her neighbor [...] Patient performed sit to stand transfers requiring CGA.---06/28/24Katerina is resting in bed, a good historian, without pain or concerns to report today. VSS. Staff is without concerns today. Per therapy notes: Bed Mobility = Min (A);... Transfers = Mod (A); Assistive Device During Transfers = Two-wheeled walker . Gait Level Surfaces = Mod (A); Distance Level Surfaces = 5 feet---06/30/24Katerina is doing well today, without concerns and reports continued slow but steady progress with therapy. VSS. Staff is without concerns today. Per therapy notes: sit/stand Supervision . Standing at FWW NWB RLE with tolerance up to 4 minutes ... Gait Level Surfaces = Min (A); Distance Level Surfaces = 15 feet; Assistive Device = Two-wheeled walker---07/05/24Katerina is resting in her recliner in her [...] safety, sequencing and hand placement. Yulissa Simpson, TELEVISION CABINET FINISHER [address] [facility], [place], [address], [place] [facility] 07/07/2024 18:43:08 [...] The patient lives in a home in [place] with her beloved dog - her neighbor [...] Patient performed sit to stand transfers requiring CGA.---06/28/24Katerina is resting in bed, a good historian, without pain or concerns to report today. VSS. Staff is without concerns today. Per therapy notes: Bed Mobility = Min (A);... Transfers = Mod (A); Assistive Device During Transfers = Two-wheeled walker . Gait Level Surfaces = Mod (A); Distance Level Surfaces = 5 feet---06/30/24Ktaerina is doing well today, without concerns and reports continued slow but steady progress with therapy. VSS. Staff is without concerns today. Per therapy notes: sit/stand Supervision . Standing at FWW NWB RLE with tolerance up to 4 minutes ... Gait Level Surfaces = Min (A); Distance Level Surfaces = 15 feet; Assistive Device = Two-wheeled walker---07/05/24Katerina is resting in her recliner in her [...] requiring CGA for safety, sequencing and hand placement.---07/14/24Katerina is doing well today, happy to report [...] LE. Gladistent requires cueing for heel/toe strike. Yulissa Simpson, TELEVISION CABINET FINISHER [address] [facility], [place], [address], [place] [facility] 07/14/2024 18:59:58 07/20/19 25 text/ht ml 74 y.o. female with a past medical history of anxiety, hyperlipidemia, hypertension, diabetes mellitus, Parkinson's disease admitted to [facility] for post acute rehab subsequent to an inpatient stay at [facility] 06/14-06/17/2024 related to a fall resulting in [...] hospitalist service with ortho consultation. Per discharge summary:Closed sleeve fracture of right patella, initial encounterRight knee x-ray showed mildly displaced fracture involving the lateral aspect of the right patella. Large knee joint effusion and anterior soft tissue swelling. Ortho consulted in the ED and managed non operatively. Recommend patient should be protected weight-bearing with assistance and continue with knee immobilizer. [place] q.4 hours p.r.n.PT/OT both recommended [facility]p facility. Placement was pending until 06/17 where she was accepted to [facility]. Ortho recommended to follow up in 4 weeks and to continue using the immobilizer. Patient was discharged with [place] p.r.n.. Patient was stable for discharge and [...] The patient lives in a home in [place] with her beloved dog - her neighbor is currently watching the dogPCP Sidney Forbes status is fullAlternate contact is her son, Zeus who lives in [place]---06/19/24 patient is lying in bed this evening. [...] The patient lives in a home in [place] with her beloved dog - her neighbor [...] Patient performed sit to stand transfers requiring CGA.---06/28/24Katerina is resting in bed, a good historian, without pain or concerns to report today. VSS. Staff is without concerns today. Per therapy notes: Bed Mobility = Min (A);... Transfers = Mod (A); Assistive Device During Transfers = Two-wheeled walker . Gait Level Surfaces = Mod (A); Distance Level Surfaces = 5 feet---06/30/24Katerina is doing well today, without concerns and reports continued slow but steady progress with therapy. VSS. Staff is without concerns today. Per therapy notes: sit/stand Supervision . Standing at FWW NWB RLE with tolerance up to 4 minutes ... Gait Level Surfaces = Min (A); Distance Level Surfaces = 15 feet; Assistive Device = Two-wheeled walker---07/05/24Katerina is resting in her recliner in her [...] requiring CGA for safety, sequencing and hand placement.---07/14/24Katerina is doing well today, happy to report [...] R LE. Sukhdevt requires cueing for heel/toe strike.---07/19/24Katerina is resting in her recliner, a good historian, without concerns regarding her upcoming discharge. She does not need medication prescriptions sent and we discuss that if she should run low on her PRN [place], she can contact her orthopedic doctor for [...] Katerina will d/c home on 07/20 with [facility] [address] [place], [address], [facility] 07/20/2024 08:58:44 OBGyn Episode No OBEpisode recorded.
--- OUTSIDE RECORDS SUMMARY | 2024-11-16 12:13 | XMS_ITS | Encounter Summary ---
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 ELECTRIC CONTAINER TESTER Gender Identity Female 11/17/2023 1:33 PM CDT Sexual Orientation Straight 11/17/2023 1: 33 PM CDT documented as of this encounter Miscellaneous Notes * Telephone Encounter - Michaela Cabrera RMA - 11/15/2024 1:04 PM CDT Pt aware mailed order to pt to take to [facility] * Telephone Encounter - Michaela Cabrera RMA - 11/15/2024 1:04 PM CDT ----- Message from Sidney Westfall MD sent at 11/11/2024 4:43 PM CDT ----- Increase levothyroxine to 75 micrograms daily Recheck in 3 months ----- Message ----- From: Interface, Lab Results In Sent: 11/11/2024 1:54 PM CDT To: Sidney Westfall MD documented in this encounter Plan of Treatment Not on file documented as of this encounter Visit Diagnoses Not on filedocumented in this encounter Care Teams Road Commissioner Relationship Specialty Start Date End Date Sidney Westfall MD PCP - General Internal Medicine 03/28/20 documented as of this encounter
--- OUTSIDE RECORDS SUMMARY | 2024-11-16 12:13 | XMS_ITS | Referral Summary ---
Author Organization [facility] Address [facility] [place] [address] Phone Care Team Providers Care Commercial Installer Name Role Phone Sidney Westfall MD Primary Care Provider [phone] Encounters Date Type Department Care Team Description 11/15/2024 Orders Only [facility] [address] [place] [address] [address] [place] [phone] Michaela Cabrera RMA Hypothyroidism, unspecified type (Primary Dx) 11/12/2024 Orders Only [facility] [address] [place] [address] [address] [place] [phone] Michaeal Cabrera RMA 11/11/2024 Results Follow-Up [facility] [address] [place] [address] [address] [place] [phone] Sidney Westfall MD Comprehensive metabolic panel, TSH, T4, free 11/11/2024 11:00 AM CDT Office Visit [facility] [address] [place] [address] [address] [place] [phone] Sidney Westfall MD Post-menopausal (Primary Dx); Type 2 diabetes mellitus without complication, without long-term current use of insulin (HCC); Mixed hyperlipidemia; Essential hypertension; Hypothyroidism, unspecified type; Parkinson'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, with fluctuating manifestations (HCC) 10/15/2024 7:40 AM CDT - 10/15/2024 11:59 PM CDT Hospital Encounter [facility] [address] [facility] [address] [place] [address] Discharge Disposition: Discharge to home or self care 10/15/2024 8:15 AM CDT Office Visit [facility] [address] [place] [address] [address] [place] [address] Demarco Rainey NP Closed nondisplaced longitudinal fracture of right patella with routine healing, subsequent encounter (Primary Dx) 09/23/2024 Results Follow-Up [facility] [address] [phone] Sidney Westfall MD SCAN - RADIOLOGY/IMAGING 08/17/2024 Telephone [facility] [address] [place] [address] [address] [place] [address] Demarco Rainey NP from Last 3 Months Allergies No known active allergies Medications albuterol HFA (Proventil HFA) 90 mcg/actuation inhaler Inhale 2 puffs every 4 (four) hours as needed for wheezing or shortness of breath 3 each 1 10/24/19 23 Active pen needle, diabetic, safety 31 gauge x 3/16 needleIndications :Type 2 diabetes mellitus without complication, [...] Rx Assessment & Plan (07/10/2020 10:39 AM STOCK COUNTER): A1c at target. Will continue present Rx. Check BMP and microalbumin Hyperlipidemia 07/10/2020 Assessment & Plan (11/11/2024 12:02 PM CDT): Lipid reviewed Assessment & Plan (02/18/2024 1:11 PM CDT): Doing well at this time Assessment & Plan (07/10/2020 10:39 AM STOCK COUNTER): Lipid elevated. Consider ezetemibe in the future. Essential hypertension 07/10/2020 Assessment & Plan (11/11/2024 12:02 PM CDT): BP at target continue medication for target directed therapy Assessment & Plan (02/18/2024 1:11 PM CDT): BP at target Assessment & Plan (07/10/2020 10:39 AM STOCK COUNTER): Blood pressure at target doing well Anxiety 07/10/2020 Assessment & Plan (07/10/2020 10:39 AM STOCK COUNTER): Will increase alprazolam 2.5 b.i.d. Orthostatic hypotension Immunizations Immunization Administration Dates Next Due COVID-19 mRNA ([employer]) 0.3 m L (30 mcg) vaccine (12 [...] on file Legal Sex Female 12:14 AM STOCK COUNTER Gender Identity Female 11/17/2023 1:33 PM CDT [...] 11/11/2024 11:26 AM CDT Plan of Treatment Not on file [...] 11:27 AM CDT Mixed hyperlipidemia POCT GLUCOSE 23091 Routine 11/11/2024 11:27 AM CDT Type 2 diabetes mellitus without complication, without long-term current use of insulin (HCC) XR KNEE RIGHT 3 VIEWS Schedule Routine, Read Routine (OP Routine) 10/15/2024 8:20 AM CDT Closed nondisplaced longitudinal fracture of right patella with routine healing, subsequent encounter EGFR STAT 07/31/2024 8:21 PM CDT ALBUMIN CREATININE RATIO, URINE Routine 05/13/2024 11:59 AM STOCK COUNTER Type 2 diabetes mellitus without complication, without long-term current use of insulin (HCC) Mixed hyperlipidemia Essential hypertension Parkinson'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, with fluctuating manifestations (HCC) Anemia, unspecified type HEPATITIS C ANTIBODY Routine 11/06/2023 10:16 AM CDT Type 2 diabetes mellitus without complication, unspecified whether emt intermediate insulin use (HCC) Mixed hyperlipidemia Parkinson's disease [...] ORDERABLES Final Re sult Performing Organization Address [facility]/ZIP Co de Phone Number ADAM VELAZQUEZDA [address] [facility] [address] [place] [address] * T4, free (11/11/2024 12:03 PM CDT) Free T4 0.93 0.93 - 1.70 ng/dL [facility] Blood 11/11/2024 12:0 3 PM CDT 11/11/2024 12:19 PM CDT us Sidney Westfall MD LAB BLOOD ORDERABLES Final Re sult Performing Organization Address [facility]/ZIP Co de Phone Number ADAM SCHNEIDER [address] [facility] [address] * (ABNORMAL) Comprehensive metabolic panel (11/11/2024 12:03 [...] LAB BLOOD ORDERABLES Final Re sult ADAM VELAZQUEZDA [address] [place] [phone] * (ABNORMAL) POCT hemoglobin A1c (11/11/2024 [...] facet patella fracture again seen. Demarco Rainey PYROGLAZER IMG XR PROCEDURES Final Result * (ABNORMAL) [...] LAB BLOOD ORDERABLES Final Re sult [facility] [address] [facility] Department [place] [address] * Albumin Creatinine Ratio, Urine (05/13/2024 11:59 AM STOCK COUNTER) Albumin Ur <12.0 mg/L Comment: Interpretive Data No reference range established. Current interpretive data was last revised 2018. Creatinine Ur 25.7 mg/dL [facility] Comment: Interpretive Data No reference range established. Current interpretive data was last revised 2018. Albumin Creatinine Ratio, Ur See Comment 1 - 29 mg/g [facility] Comment:Unable to calculate Urine 05/13/2024 11:5 9 AM STOCK COUNTER 05/13/2024 12:51 PM STOCK COUNTER us Sidney Westfall MD LAB URINE ORDERABLES Final Re sult [facility] [address] [facility] Department [place] [address] * Hepatitis C antibody Blood (11/06/2023 10:16 [...] 11/07/2023 11:13 AM CDT Performed at: - [facility] [id number] Cinder Snapper: Abraham Bob PhD, Phone: [phone] us Sidney Westfall MD LAB MICROBIOLOGY - GENERAL OR DERABLES Final Result [facility] * Colonoscopy (06/09/2019) Anatomical Region Laterality Modality Other Narrative 06/09/2019 Pt reports she had granite in 2019 she says it was normal us Historical Provider ENDOSCOPY PROCEDURES Jenny l Result from Last 3 Months or Most Recently Relevant to Health Maintenance Insurance MEDICARE [place] [address] [place] [address] [place] [address] MEDICARE Advance Directives For more information, please contact: [phone] * Full Code (Latest Code Status on File) Date Activated Date Inactivated Comments 06/14/2024 1:09 PM 06/17/2024 8:37 PM * Full Code Date Activated Date Inactivated Comments 04/25/2022 10:48 PM 04/27/2022 3:40 PM Care Teams Commercial Installer Relationship Specialty Start Date End Date Sidney Westfall MD PCP - General Internal Medicine 03/28/20
[2024-11-16 12:41] LABS: MALB Creatinine Ratio 51.5 mg/g (0-30)
== END 2024-11-16 12:10 | disposition home or self-care (01) ==
PROVIDERS: PCP Internal Medicine; Visit Provider Internal Medicine
DX: Z78.0 Asymptomatic menopausal state (principal); M81.0 Age-related osteoporosis without current pathological fracture; M85.88 Other specified disorders of bone density and structure, other site
CPT/HCPCS: 77080; 82043

== ENCOUNTER 2025-02-07 09:36 | Outpatient (CLI) | payer MEDICARE, OTHER, SELFPAY ==
--- NOTE | ~2025-02-07 | MM_ITS ---
EXAMINATION: MM diagnostic leon RT w royal INDICATION: 74-year old female; 6 month follow up asymmetry in the right breast with no sonographic correlate, initially evaluated on 08/05/2024. COMPARISON: 08/05/2024 and 07/29/2024. TECHNIQUE: Right breast Digital breast tomosynthesis ML, Spot compression in MLO views were obtained with computer-aided detection to assist in interpretation of the study. FINDINGS: There are scattered areas of fibroglandular density. The probably benign asymmetry of concern in the upper right breast at anterior third effaces on spot compression views compatible with superimposition of fibroglandular tissue. No other focal dominant mass, architectural distortion, or suspicious microcalcifications are identified. IMPRESSION: Benign mammogram. No evidence of malignancy in Right breast. RECOMMEND: Routine screening bilateral mammography in 6 months. BI-RADS 2, BENIGN Reviewed, dictated and finalized at location C.
== END 2025-02-07 09:37 | disposition home or self-care (01) ==
LOC: CHSIMG 09:38
PROVIDERS: PCP Internal Medicine; Visit Provider Internal Medicine
DX: R92.8 Other abnormal and inconclusive findings on diagnostic imaging of breast (principal)
CPT/HCPCS: 77061; 77065; G0279